=== PATIENT | female | born 1970 | race Two or more races ===

== ENCOUNTER 2019-12-09 10:25 | Outpatient (REF) | payer MEDICAID, SELFPAY ==
--- NOTE | 2019-12-09 10:34 | MR_ITS ---
EXAMINATION: MR CERVICAL SPINE WITHOUT CONTRAST CLINICAL INFORMATION: Cervical radiculopathy. Left arm pain and shoulder blade/neck pain. COMPARISON: Cervical spine radiographs from 03/03/2019. TECHNIQUE: MRI of the cervical spine was obtained using routine sequences without contrast. FINDINGS: Normal anatomic alignment. Normal, homogeneous marrow signal throughout. No suspicious marrow edema. The vertebral body heights are maintained. Mild degenerative disc disease at C4-C5 and C5-C6 with partial disc desiccation. The spinal cord is normal in appearance. Limited evaluation of the soft tissues of the neck without demonstrated abnormalities. The flow voids of the major cervical vessels are maintained. Normal appearance of the cervicomedullary junction and visualized posterior fossa. SPINAL LEVELS: C2-C3: Normal annular contour. There is no uncovertebral joint arthropathy. There is mild bilateral facet joint arthropathy. There is no neural foraminal stenosis. There is no spinal canal stenosis. C3-C4: Minimal disc-osteophyte complex. There is mild right and no uncovertebral joint arthropathy. There is no facet joint arthropathy. There is mild right and no left neural foraminal stenosis. There is no spinal canal stenosis. C4-C5: Mild disc-osteophyte complex. There is mild right and no left uncovertebral joint arthropathy. There is mild bilateral facet joint arthropathy. There is mild right and no left neural foraminal stenosis. There is no spinal canal stenosis. C5-C6: Mild disc-osteophyte complex with superimposed shallow central disc herniation. There is mild bilateral uncovertebral joint arthropathy. There is mild bilateral facet joint arthropathy. There is mild bilateral neural foraminal stenosis. There is no spinal canal stenosis. C6-C7: Mild disc-osteophyte complex. There is no uncovertebral joint arthropathy. There is mild to facet joint arthropathy. There is no neural foraminal stenosis. Small left-sided perineural cyst. There is no spinal canal stenosis. C7-T1: Normal annular contour. There is no uncovertebral joint arthropathy. There is no facet joint arthropathy. There is no neural foraminal stenosis. Small left-sided perineural cyst. There is no spinal canal stenosis. IMPRESSION: Mild multilevel degenerative spondyloarthropathy of the cervical spine as described in detail above. There are mild right worse than left neural foraminal stenoses from C3-C6. No spinal canal stenosis.
== END 2019-12-09 10:26 | disposition home or self-care (01) ==
LOC: HO.MRI 10:25
PROVIDERS: PCP Emergency Medicine; Visit Provider Emergency Medicine
DX: M54.12 Radiculopathy, cervical region (principal)
CPT/HCPCS: 72141

== ENCOUNTER → 2019-12-25 14:33 | Outpatient (BNVA) | payer MEDICAID, SELFPAY | PROVIDERS: PCP Emergency Medicine; Visit Provider Anesthesiology | DX: M54.2 Cervicalgia (principal); M47.22 Other spondylosis with radiculopathy, cervical region | CPT/HCPCS: 99204 ==

== ENCOUNTER → 2020-01-07 12:01 | Outpatient (BNVA) | payer MEDICAID, SELFPAY | PROVIDERS: PCP Emergency Medicine; Referring Provider Emergency Medicine; Visit Provider Orthopaedic Surgery | DX: Z76.89 Persons encountering health services in other specified circumstances (principal) ==

== ENCOUNTER 2020-02-23 14:02 | Outpatient (REF) | payer MEDICAID, SELFPAY ==
[2020-02-23 15:13] LABS: HBS Num1 > 1000.00 mIU/mL (0-7.99); ~Hepatitis B Surface Antibody REACTIVE (Nonreactive)
[2020-02-24 09:02] LABS: Rubella IgG Antibody 8.14 Index
[2020-02-26 16:02] LABS: TS Negative Control Passed; TS Panel A 0; TS Panel B 1; TS Positive Control Passed; TSpotTB Negative (SeeBelow)
== END 2020-02-23 14:03 | disposition home or self-care (01) ==
LOC: HO.LNP 14:02
PROVIDERS: Visit Provider Internal Medicine
DX: Z02.1 Encounter for pre-employment examination (principal)
CPT/HCPCS: 86481; 86706; 86735; 86762; 86765; 86787

== ENCOUNTER 2020-06-03 11:36 | Outpatient (REF) | payer MEDICAID, SELFPAY ==
--- NOTE | ~2020-06-03 | XR_ITS ---
EXAMINATION: XR KNEE, RIGHT CLINICAL INFORMATION: Pain in right knee COMPARISON: None TECHNIQUE: Four views of the right knee. This includes AP weightbearing. FINDINGS: There is no fracture or subluxation. Compartmental joint spaces are maintained. Small joint effusion. The soft tissues are unremarkable. XR/XR knee RT 3V IMPRESSION: Small joint effusion. No osseous abnormality.
== END 2020-06-03 11:37 | disposition home or self-care (01) ==
LOC: HO.XRAY 11:36
PROVIDERS: PCP Family Medicine; Visit Provider Family Medicine
DX: M25.561 Pain in right knee (principal)
CPT/HCPCS: 73562

== ENCOUNTER → 2020-06-09 10:20 | Outpatient (BNVA) | payer MEDICAID, SELFPAY | PROVIDERS: PCP Family Medicine; Visit Provider Orthopaedic Surgery | DX: M22.2X1 Patellofemoral disorders, right knee (principal) | CPT/HCPCS: 20610; 99202; J1040 ==

== ENCOUNTER → 2020-09-22 08:48 | Outpatient (BNVA) | payer MEDICAID, SELFPAY | PROVIDERS: PCP Family Medicine; Visit Provider Orthopaedic Surgery | DX: M17.11 Unilateral primary osteoarthritis, right knee (principal); S83.241D Other tear of medial meniscus, current injury, right knee, subsequent encounter; X58.XXXD Exposure to other specified factors, subsequent encounter; M47.22 Other spondylosis with radiculopathy, cervical region | CPT/HCPCS: 99212 ==

== ENCOUNTER → 2020-11-02 08:29 | Outpatient (BNVA) | payer MEDICAID, SELFPAY | PROVIDERS: PCP Family Medicine; Visit Provider Physician Assistant ==

== ENCOUNTER → 2020-11-05 08:04 | Outpatient (BNVA) | payer MEDICAID, SELFPAY | PROVIDERS: PCP Family Medicine; Visit Provider Physician Assistant | DX: S83.241D Other tear of medial meniscus, current injury, right knee, subsequent encounter (principal) | CPT/HCPCS: 99212 ==

== ENCOUNTER 2020-11-10 06:06 | Day surgery (SDC) | payer MEDICAID, SELFPAY ==
[2020-11-04 10:13] VITALS: BMI 36.3
--- NOTE | 2020-11-09 08:42 | HO.ANESPROP2 ---
Documented by User: Asia Teixeira NP 11/09/20 08:43 HPI - Anesthesia Eval Consult details Narrative: 50yo F for Knee Arthroscopy PMFSH Active Problems Active Problems: All Active Problems (Updated 11/04/20 @ 10:17 by Janine Boyd RN) Patellofemoral pain syndrome of right knee (Acute) Tear of medial meniscus of right knee (Acute) Spondylosis of cervical spine with radiculopathy (Acute) Cervicalgia (Acute) Past Medical History Medical History Cervical dysplasia Cervicalgia COVID-19 vaccine series completed GERD (gastroesophageal reflux disease) Hx of bipolar disorder Spondylosis of cervical spine with radiculopathy Family History Family History Father No problems noted. Mother No problems noted. Surgical History Surgical History No history of previous surgery Social History Social History Patient Tobacco Use Status: Former Tobacco user Quit Date: 2016 Tobacco use type: Cigarette Use of substances other than those prescribed or required for medical reasons: No Have you been hit, kicked, punched, or otherwise hurt by someone within the past year? 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 Allergies Allergy/AdvReac Type Severity Reaction Status Date / Time prednisone [PREDNISONE] AdvReac Intermediate TACHYCARDIA Verified 09/22/20 08:52 Home Medications Medication Instructions Recorded Confirmed Last Taken Type hydroxyzine HCl 50 mg tablet 50 mg PO QID PRN 12/25/19 11/04/20 Unknown History ibuprofen 800 mg tablet 800 mg PO Q8H PRN 12/25/19 11/04/20 Unknown History omeprazole magnesium 20 mg 20 mg PO DAILY 12/25/19 11/04/20 Unknown History tablet,delayed release (Prilosec OTC) acetaminophen 500 mg tablet 1 - 2 tab PO Q8H PRN 11/04/20 11/04/20 Unknown History Exam Exam Date and Time: November 09, 2020 08 Height,Weight and Vital Signs: Height 5 ft 3 in Weight 92.986 kg Assessment and Plan Assessment Anesthesia Assessment: Chart Reviewed Documented by User: Kristen Tierney MD 11/10/20 07:32 [facility] Active Problems Active Problems: All Active Problems (Updated 11/04/20 @ 10:17 by Janine Boyd RN) Patellofemoral pain syndrome of right knee (Acute) Tear of medial meniscus of right knee (Acute) Spondylosis of cervical spine with radiculopathy (Acute) Cervicalgia (Acute) Increased BMI. Denies MALICK Anxiety Past Medical History Medical History Cervical dysplasia Cervicalgia COVID-19 vaccine series completed GERD (gastroesophageal reflux disease) Hx of bipolar disorder Spondylosis of cervical spine with radiculopathy Family History Family History Father No problems noted. Mother No problems noted. Family history of problems with anesthesia: No Surgical History Surgical History No history of previous surgery History of Problems with Anesthesia: No Social History Social History Patient Tobacco Use Status: Former Tobacco user Quit Date: 2016 Tobacco use type: Cigarette Use of substances other than those prescribed or required for medical reasons: No Have you been hit, kicked, punched, or otherwise hurt by someone within the past year? 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 Allergies Allergy/AdvReac Type Severity Reaction Status Date / Time prednisone [PREDNISONE] AdvReac Intermediate TACHYCARDIA Verified 09/22/20 08:52 Home Medications Medication Instructions Recorded Confirmed Last Taken Type hydroxyzine HCl 50 mg tablet 50 mg PO QID PRN 12/25/19 11/04/20 Unknown History ibuprofen 800 mg tablet 800 mg PO Q8H PRN 12/25/19 11/04/20 Unknown History omeprazole magnesium 20 mg 20 mg PO DAILY 12/25/19 11/04/20 Unknown History tablet,delayed release (Prilosec OTC) acetaminophen 500 mg tablet 1 - 2 tab PO Q8H PRN 11/04/20 11/04/20 Unknown History Exam Height,Weight and Vital Signs: Height 5 ft 3 in Weight 92.986 kg Vital Signs Temp Pulse Resp BP Pulse Ox 11/10/20 06:23 97.3 F 62 16 107/37 L 98 Pertinent Lab Results Pertinent Lab Results: Lab Results 11/10/20 Range/Units 06:27 Urine Test NEGATIVE (NEGATIVE) Airway Mallampati Class: II TM Dist: >3cm Neck ROM: Full Loose/Missing/Broken Teeth: No Heart: RRR Lungs: CTAB Assessment and Plan Assessment Anesthesia Assessment: Anesthesia Plan Discussed Final Anesthetic Review Family History of Problems with Anesthesia: No History of Problems with Anesthesia: No NPO: Yes ASA Class: II Final Preanesthetic Review: No Changes in Pt Med Stat, Meds/Allgs Chart Reviewed, Consent Obtained/Reviewed and Anes Risks/Benef Reviewed Patient Risk: Intermediate Procedure Risk: Low Assessment/Block/Sedation in SS: Assess/Block/Sedation-SS Anesthetic Plan Anesthetic Plan: GA Disposition: Standard PACU
[2020-11-10] VITALS (12 sets, daily range): BP systolic 102–132; BP diastolic 37–77; PULSE 50–77; RESP 16–19; TEMP 36.1–36.3; O2SAT 94–100
[2020-11-10 06:38] LABS: UPreg QC Valid YES; Urine Pregnancy NEGATIVE (NEGATIVE)
[2020-11-10] MEDS: Lactated Ringers 1,000 ML 100 ML IVCONT (07:18)
--- NOTE | 2020-11-10 07:47 | MHC.SHP ---
Pre-Procedural Eval Section A Date of Service: 11/10/20 The patient is an INPATIENT: No Changes since office visit: Yes Patient answered all questions; No Cold of Flu in the past 2 weeks, No New Medical Problems and No Changes in Medication The History & Physical has been completed within 30 days and I have reviewed it.: Yes Section B Chief Complaint: tear of medial menisucus Allergies: Allergies Allergy/AdvReac Type Severity Reaction Status Date / Time prednisone [PREDNISONE] AdvReac Intermediate TACHYCARDIA Verified 09/22/20 08:52 Plan I have reviewed the history and physical and performed a pertinent physical examination on my patient. No changes have occurred unless specified.
--- NOTE | 2020-11-10 08:14 | P.BOP_ITS ---
Brief Operative Note Date of Service: 11/10/20 Pre-op diagnosis: right knee medial meniscus tear Post-op diagnosis: other (1) right knee mmt 2) right knee plica) Procedure: partial medial meniscectomy and plica resection Surgeon: Smith Spencer MD Anesthesia: GETA and local Was an Vascular Manager used for this Procedure?: No Estimated blood loss (mL): 0 IV fluids (mL): 600 Pathology: none sent Condition: stable Disposition: PACU
--- NOTE | 2020-11-10 08:16 | W.PM.OPN ---
Operative Note Operative Note Date of Service: 11/10/20 Narrative: Pre-op diagnosis: right knee medial meniscus tear Post-op diagnosis: other (1) right knee mmt 2) right knee plica) Procedure: partial medial meniscectomy and plica resection Surgeon: Smith Spencer MD Anesthesia: GETA and local Was an Field [employer]illery Fire Control Man used for this Procedure?: No Estimated blood loss (mL): 0 IV fluids (mL): 600 Pathology: none sent Condition: stable Disposition: PACU Procedure in detail: Patient was brought to the operating room placed supine on the arthroscopic table and prepped and draped in standard sterile fashion. A time-out was called to identify proper site proper procedure proper surgeon and IV antibiotics per weight were administered. I began by exsanguinating the limb and insufflating tourniquet to 300 mm Hg. I then made a standard anterolateral stab incision. The knee was insufflated with water and 30 degree arthroscope was placed. The suprapatellar pouch was clean and the gutters were clean. There were no PF cartilage changes. I descended into the medial compartment with some difficulty as there was a medial abrading plica present. I used a shaver to remove this and then was able to descend into the medial compartment where I made my medial portal under direct visualization. There was a radial flap tear of the body and posterior horn of the medial meniscus. Root was intact and there was grade 1 changes of the medial plateau only. I used a combination of biter shaver and cautery to remove unstable portions of the meniscus. Approximately 30% meniscal volume was removed. Once I was satsified with this the ACL was examined and found to be intact and the lateral compartment also was pristine. I then removed all instrumentation and closed the portals with skin glue. 25 mL of 2% Marcaine with epinephrine was injected into the joint and the surrounding soft tissues. Patient was then placed in sterile dressing extubated and brought recovery room stable condition. There were no known complications.
[2020-11-10] MEDS: fentaNYL citrate/PF 100 MCG/2 ML VIAL 25 MCG IVPUSH ×3 (08:24→08:44)
[2020-11-10] MEDS: Acetaminophen 325 MG TABLET 650 MG PO (08:36)
[2020-11-10] MEDS: oxyCODONE HCl Immed Release 5 MG TABLET PO (08:36)
[2020-11-10] MEDS: ondansetron HCL 4 MG/2 ML VIAL IVPUSH (09:04)
== END 2020-11-10 10:21 | disposition home or self-care (01) ==
PROVIDERS: Nurse Practitioner; PCP Family Medicine; Visit Provider Orthopaedic Surgery
PROC: (CPT 29870; principal; 2020-11-10 07:30)
DX: S83.241A Other tear of medial meniscus, current injury, right knee, initial encounter (principal); M67.51 Plica syndrome, right knee; X58.XXXA Exposure to other specified factors, initial encounter; Y93.9 Activity, unspecified; Y92.9 Unspecified place or not applicable; Y99.9 Unspecified external cause status
CPT/HCPCS: 29881; 81025; J0171; J0690; J1100; J1885; J2250; J2405; J3010

== ENCOUNTER → 2020-11-23 09:25 | Outpatient (BNVA) | payer MEDICAID, SELFPAY | PROVIDERS: PCP Family Medicine; Visit Provider Physician Assistant | DX: M22.2X1 Patellofemoral disorders, right knee (principal); S83.241D Other tear of medial meniscus, current injury, right knee, subsequent encounter | CPT/HCPCS: 99212 ==

== ENCOUNTER → 2020-12-21 13:00 | Outpatient (BNVA) | payer MEDICAID, SELFPAY | PROVIDERS: PCP Family Medicine; Visit Provider Physician Assistant | DX: M22.2X1 Patellofemoral disorders, right knee (principal); S83.241D Other tear of medial meniscus, current injury, right knee, subsequent encounter | CPT/HCPCS: 99212 ==

== ENCOUNTER 2020-12-28 10:00 | Outpatient (RCR) | payer MEDICAID, SELFPAY ==
--- NOTE | 2020-12-01 10:51 | MHC.PT.EP ---
[facility] [place] Office [place] Office [place] Office [address] Larry Adams [address] [phone] F: [phone] F: [phone] F: [phone] F: [phone] Physical Therapy Plan of Care Date of Evaluation: Date of Surgery: 11/10/2020 Diagnosis: tear of R knee meniscus Assessment: Patient is a 50 year old female presenting to PT s/p R partial medial menisectomy and excision of plica on 11/10/2020. She presents today with impairments in knee ROM, knee strength, hip strength, pain, balance, joint mobility, and swelling. 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, with baseline physical activities including work, ADLs, ambulation, squatting, stair negotiation. Pt expresses retirement goal of getting swelling down and knee more flexible, and is motivated to work towards this in PT. Clinical presentation today is most consistent with signs and sx associated with s/p R partial medial menisectomy and excision of plica on 11/11/2020 and pt will benefit from skilled PT to address the following problems and impairments noted upon evaluation: knee ROM, knee strength, hip strength, pain, balance, and swelling. These problems limit the patient with the following functional activities: work, ADLs, ambulation, squatting, stair negotiation. The prescribed treatment plan of care is medically necessary. Co-morbidities of psoriasis were identified and taken into considerations of plan of care. Pt was educated on HEP, role of PT, prognosis, POC. Frequency and Duration: The patient will be seen 2x week x 5 weeks Short Term Goals: Pt will demonstrate improved knee extension ROM to 0 in 3 weeks for improved heel strike with gait. Pt will demonstrate improved knee and hip strength by 1/3 MMT in 3 weeks for improved tolerance to ambulation and stairs. Pt will demonstrate improved knee flexion ROM to equal B in 3 weeks for improved tolerance to stair negotiation. Pt will demonstrate improved patella joint mobility to 3/6 in 3 weeks for improved ROM. Pt will demonstrate ability to SLS x 30 sec in 3 weeks for improved proprioception on surgical leg. Stonecutter Hand Goals: Pt will demonstrate ability to ambulate with good mechanics and no AD in 5 weeks to improve tolerance to community ambulation. Pt will demonstrate ability to complete all ADLs at PLOF in 5 weeks to allow return to PLOF. Pt will demonstrate ability to negotiate stairs step over step in 5 weeks with min to no pain to improve access to her home. Treatment Plan: Modalities to reduce pain, spasms and effusion. Manual therapy to restore motion and function. Therapeutic exercise to improve strength and flexibility. Neuromuscular re-education for posture and balance. Therapeutic activities to return to functional activities of daily living. Electronically signed by: Nehal Pratt, PT, DPT, ATC Please sign and return to therapist. Thank you for your referral.
--- NOTE | 2021-01-13 10:20 | MHC.PT.DC ---
[facility] [place] [facility] [place] [facility] [place] Office [address] Larry Adams [address] [phone] F: [phone] F: [phone] F: [phone] F: [phone] Physical Therapy Discharge Report Diagnosis: tear of R knee meniscus Date of Surgery: 11/10/2020 Date of Evaluation: 12/01/20 Date of Discharge: 01/13/21 Treatments to Date: 8 Cancellations to Date: 1 No Shows to Date: 4 Discharge Status: Visit Non-compliance Discharge Summary: Pt has failed to comply with [facility] attendance policy. She has no showed 4 out of her last 5 appointments and cancelled the other. Multiple attempts to reach out to pt regarding PT status without success. At this time pt status currently unknown and therefore will be d/c today. Electronically signed by: Nehal Pratt, PT, DPT, ATC Please sign and return to therapist. Thank you for your referral.
== END 2021-01-13 10:20 | disposition home or self-care (01) ==
LOC: HO.PT 10:00
PROVIDERS: PCP Family Medicine; Visit Provider Physician Assistant
DX: M22.2X1 Patellofemoral disorders, right knee (principal); S83.241A Other tear of medial meniscus, current injury, right knee, initial encounter
CPT/HCPCS: 97110; 97112; 97140; 97161

== ENCOUNTER → 2021-01-24 08:52 | Outpatient (BNVA) | payer MEDICAID, SELFPAY | PROVIDERS: Visit Provider Orthopaedic Surgery | DX: S83.241D Other tear of medial meniscus, current injury, right knee, subsequent encounter (principal) | CPT/HCPCS: 99212 ==

== ENCOUNTER 2021-02-20 02:10 | Outpatient (REF) | payer MEDICAID, SELFPAY ==
[2021-02-20 02:54] LABS: COVID-19 Test Negative (Negative)
== END 2021-02-20 02:11 | disposition home or self-care (01) ==
LOC: HO.LAB 02:10
PROVIDERS: Visit Provider Internal Medicine
DX: Z20.822 Contact with and (suspected) exposure to COVID-19 (principal)
CPT/HCPCS: 36415; 87635

== ENCOUNTER 2021-03-07 21:24 | Outpatient (REF) | payer MEDICAID, SELFPAY ==
[2021-03-07 22:02] LABS: COVID-19 Test Negative (Negative)
== END 2021-03-07 21:25 | disposition home or self-care (01) ==
LOC: HO.LAB 21:24
PROVIDERS: Referring Provider Internal Medicine; Visit Provider Internal Medicine
DX: Z20.822 Contact with and (suspected) exposure to COVID-19 (principal)
CPT/HCPCS: 36415; 87635

== ENCOUNTER 2021-05-06 01:40 | Emergency (ER) | payer MEDICAID, SELFPAY ==
[2021-05-06 01:42] VITALS: BP 135/66; PULSE 56; RESP 16; TEMP 37; O2SAT 98; BMI 34.9
[2021-05-06 01:56] LABS: MANUAL DIFF FLAG NO
[2021-05-06 01:57] LABS: Basophils Percent Auto 0.3 % (0-2); Eosinophils Absolute Auto 0.2 X10*3/uL (0.0-0.4); Eosinophils Percent Auto 1.8 % (0-4); Hematocrit 37.9 % (37.0-47.0); Hemoglobin 11.8 g/dl (12.0-16.0); Imm Gran Abs Auto 0.03 X10*3/uL (0.00-0.03); Imm Gran Pct Auto 0.3 % (0.0-0.4); Lymphocytes Percent Auto 18.1 % (20-40); Mean Corpuscular HGB Conc 31.1 g/dl (31.0-35.0); Mean Corpuscular Hemoglobin 24.7 pg (27.0-33.0); Mean Corpuscular Volume 79.3 fL (80.0-98.0); Mean Platelet Volume 9.9 fL (9.4-12.3); Monocytes Absolute Auto 0.7 X10*3/uL (0.1-1.2); Neutrophils Absolute Auto 7.9 x10*3/uL (2.0-8.3); Neutrophils Percent Auto 73.5 % (45-73); Platelet Count 228 X10*3/uL (160-400); Red Blood Count 4.78 X10*6/uL (4.20-5.50); Red Cell Distribution Width 14.1 % (11.0-16.0); White Blood Count 10.8 X10*3/uL (4.8-10.8)
[2021-05-06] MEDS: ondansetron HCL 4 MG/2 ML VIAL IVPUSH (02:00)
[2021-05-06 02:13] LABS: COVID-19 Test Negative (Negative)
[2021-05-06 02:14] LABS: Alanine Aminotransferase 33 U/L (0-31); Albumin Level 3.9 g/dL (3.5-5.0); Alkaline Phosphatase 98 U/L (39-117); Anion Gap 11 (12-20); Aspartate Amino Transferase 26 U/L (5-31); Bilirubin Total 0.5 mg/dL (0.0-1.0); Blood Urea Nitrogen 16 mg/dL (9-16); Calcium 9.1 mg/dL (8.4-10.2); Carbon Dioxide 25 mmol/L (22-29); Chloride 108 mmol/L (96-108); Creatinine Clr Calc Pharmacy 100.8; Estimated Glomerular Filt Rate > 60; Glucose Random 102 mg/dL (60-115); Potassium 3.7 mmol/L (3.3-5.1); Sodium 140 mmol/L (135-145); Total Protein 6.9 g/dL (6.5-8.0)
--- NOTE | 2021-05-06 03:12 | PC.NURSE ---
at bedside for primary eval.
--- NOTE | 2021-05-06 03:43 | ED_ITS ---
HPI - General Adult General Chief complaint: Headache Stated complaint: general medical Time Seen by Provider: 05/06/21 03:43 Source: patient Mode of arrival: ambulatory History of Present Illness HPI narrative: 51-year-old female presents with frontal headache that began at midnight, she received Tylenol but states that she did not get any relief. Patient states that she had associated photophobia as well as blurry vision and nausea and denies any history of migraines. However, patient states that she wears corrective lenses which she left at home this evening. She otherwise denies any fever, chills, speech or auditory changes and denies any extremity numbness/tingling/weakness. Patient denies any past medical history or pres cription medications. Patient reports that the blurry vision has somewhat improved. Related Data Home Medications Medication Instructions Recorded Confirmed hydroxyzine HCl 50 mg tablet 50 mg PO QID PRN 12/25/19 11/04/20 ibuprofen 800 mg tablet 800 mg PO Q8H PRN 12/25/19 11/04/20 omeprazole magnesium 20 mg 20 mg PO DAILY 12/25/19 11/04/20 tablet,delayed release (Prilosec OTC) acetaminophen 500 mg tablet 1 - 2 tab PO Q8H PRN 11/04/20 11/04/20 Previous Rx's Medication Instructions Recorded hydrocodone 5 mg-acetaminophen 325 1 tab PO Q8H PRN #21 tab 11/10/20 mg tablet Allergies Allergy/AdvReac Type Severity Reaction Status Date / Time prednisone [PREDNISONE] AdvReac Intermediate TACHYCARDIA Verified 05/06/21 01:44 Review of Systems Review of Systems: Pertinent positives and negatives as stated in HPI 10 point review of systems is otherwise negative. [facility] Past Medical History Source: nursing notes reviewed Medical History Cervical dysplasia Cervicalgia COVID-19 vaccine series completed GERD (gastroesophageal reflux disease) Hx of bipolar disorder Spondylosis of cervical spine with radiculopathy Surgical History No history of previous surgery Family History Family History Father No problems noted. Mother No problems noted. 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 GENERAL: Well developed, well nourished, in no acute distress. HEAD: Normocephalic/atraumatic EYES: PERRLA, EOMI intact without pain, no nystagmus, no conjunctival injection EARS: Ext canals without abnormality, TMs non-bulging and non-erythematous NOSE: Nares patent bilateral OROPHARYNX: no oral lesions noted, posterior pharynx clear LUNGS: Normal breath sounds. SpO2<98> CARDIOVASCULAR: Regular rate and rhythm without noted murmurs, no JVD or lower extremity edema. ABDOMEN: Soft, non-tender, non-distended with bowel sounds. MUSCULOSKELETAL: No tenderness, deformities, or effusions noted on gross inspection. EXTREMITIES: No cyanosis, clubbing or edema. SKIN: Inspection of the skin reveals no rashes, ulcerations, jaundice, pallor, or petechiae. NEUROLOGIC: Alert and oriented x 4. Strength and sensation to light touch were grossly intact x 4, no pronator drift, no facial asymmetry, cranial nerves 2-12 grossly intact, heel to yeung is intact, pass pointing is intact. Course Course Course Narrative: This is a 51-year-old female who developed headache with some blurry vision but is otherwise nonfocal, no evidence to suggest that this is a medication related incident, there is no trauma/falls. Patient reports improvement in her sy mptoms, there is no evidence to suggest acute angle glaucoma, history is not consistent with retinal detachment, no gaze palsies were appreciated. Blurry vision may be attributable to absent corrective lenses. Review of all investigations without acute findings and on ambulation and re- evaluation patient did very well without noted ataxia and she received additional Tylenol and reports feeling much better. She was encouraged to follow-up with her primary care provider for re-evaluation. Medical Decision Making Lab Data Result diagrams: 05/06/21 01:52 05/06/21 01:52 Labs: Lab Results 05/06/21 05/06/21 05/06/21 Range/Units 01:52 01:52 01:52 WBC 10.8 (4.8-10.8) X10*3/uL RBC 4.78 (4.20-5.50) X10*6/uL Hgb 11.8 L (12.0-16.0) g/dl Hct 37.9 (37.0-47.0) % MCV 79.3 L (80.0-98.0) fL MCH 24.7 L (27.0-33.0) pg MCHC 31.1 (31.0-35.0) g/dl RDW 14.1 (11.0-16.0) % Plt Count 228 (160-400) X10*3/uL MPV 9.9 (9.4-12.3) fL Immature Gran % (Auto) 0.3 (0.0-0.4) % Neut % (Auto) 73.5 H (45-73) % Lymph % (Auto) 18.1 L (20-40) % [place] % (Auto) 6.0 (2-11) % Eos % (Auto) 1.8 (0-4) % Baso % (Auto) 0.3 (0-2) % Lymph # (Auto) 2.0 (1.2-4.9) X10*3/uL [place] # (Auto) 0.7 (0.1-1.2) X10*3/uL Eos # (Auto) 0.2 (0.0-0.4) X10*3/uL Baso # (Auto) 0.0 (0.0-0.2) X10*3/uL Abs Immat Gran (auto) 0.03 (0.00-0.03) X10*3/uL Absolute Neuts (auto) 7.9 (2.0-8.3) x10*3/uL Absolute Nucleated RBC 0.000 (0.0-0.012) X10*3/uL Nucleated RBC % (auto) 0.0 (0.0-0.2) /100WBC Sodium 140 (135-145) mmol/L Potassium 3.7 (3.3-5.1) mmol/L Chloride 108 (96-108) mmol/L Carbon Dioxide 25 (22-29) mmol/L Anion Gap 11 L (12-20) BUN 16 (9-16) mg/dL Creatinine 0.78 (0.5-1.4) mg/dL Estim Creat Clear Calc 100.8 Estimated GFR > 60 Random Glucose 102 (60-115) mg/dL Calcium 9.1 (8.4-10.2) mg/dL Total Bilirubin 0.5 (0.0-1.0) mg/dL AST 26 (5-31) U/L ALT 33 H (0-31) U/L Alkaline Phosphatase 98 (39-117) U/L Total Protein 6.9 (6.5-8.0) g/dL Albumin 3.9 (3.5-5.0) g/dL COVID-19 (COLTEN) Negative (Negative) COVID-19 Clin Com See Note Discharge Plan Discharge Clinical Impression: Headache Patient Disposition: Home, Self-Care Instructions: General Headache (ED) Additional Instructions: 1. Recommend keeping your corrective lenses with you at all time. Consider an annual eye exam if you have not received 1 within the past year. 2. Follow-up with your primary care provider for re-evaluation and further outpatient management. Return to the ER for worsening symptoms. Prescriptions: No Action acetaminophen 500 mg tablet 1 - 2 tab PO Q8H PRN (Reason: fever) 0RF hydrocodone-acetaminophen 5-325 mg tablet 1 tab PO Q8H PRN (Reason: pain (scale score 4-6)) Qty: 21 0RF ibuprofen 800 mg tablet 800 mg PO Q8H PRN (Reason: Pain) 0RF hydroxyzine HCl 50 mg tablet 50 mg PO QID PRN (Reason: Anxiety) 0RF omeprazole magnesium [Prilosec OTC] 20 mg tablet,delayed release (DR/EC) 20 mg PO DAILY 0RF Referrals: [facility] [Primary Care Provider] - 2 days
--- NOTE | 2021-05-06 04:35 | PC.NURSE ---
Pt ambulating throughout ED with ease however pt reporting difficulty with coordination. aware.
[2021-05-06] MEDS: Acetaminophen 325 MG TABLET 650 MG PO (05:15)
--- NOTE | 2021-05-06 05:20 | PC.NURSE ---
Pt medicated for BUSTAMANTE with Tylenol, reports pain to be 4/10. Pt ambulating with this RN, strong/steady gait noted, pt ambulating without assistance. Pt assisted back into bed, requesting some more time to rest. MD aware of plan for DC soon.
--- NOTE | 2021-05-06 06:16 | PC.NURSE ---
MD at bedside discussing results and plan for discharge.
== END 2021-05-06 06:43 | disposition home or self-care (01) ==
PROVIDERS: Emergency Provider Student in an Organized Health Care Education/Training Program
DX: R51.9 Headache, unspecified (principal); H53.8 Other visual disturbances; Z87.891 Personal history of nicotine dependence; Z20.822 Contact with and (suspected) exposure to COVID-19
CPT/HCPCS: 80053; 85025; 87635; 96374; 99283; 99284; J2405

== ENCOUNTER 2021-08-05 23:59 | Outpatient (REF) | payer MEDICAID, SELFPAY ==
[2021-08-06 00:31] LABS: COVID-19 Test Negative (Negative)
== END 2021-08-06 | disposition home or self-care (01) ==
LOC: HO.LAB 23:59
PROVIDERS: Visit Provider Internal Medicine
DX: Z20.822 Contact with and (suspected) exposure to COVID-19 (principal)
CPT/HCPCS: 87635

== ENCOUNTER → 2021-12-22 09:08 | Outpatient (BNVA) | payer MEDICAID, SELFPAY | PROVIDERS: Visit Provider Orthopaedic Surgery | DX: R20.0 Anesthesia of skin (principal); R20.2 Paresthesia of skin; M76.811 Anterior tibial syndrome, right leg | CPT/HCPCS: 99212 ==

== ENCOUNTER 2022-04-01 16:00 | Outpatient (REF) | payer OTHER, SELFPAY ==
[2022-04-01 16:38] LABS: COVID-19 Test Negative (Negative); IDNOW Serial# 6674DD1D
== END 2022-04-01 16:01 | disposition home or self-care (01) ==
LOC: HO.LAB 16:00
PROVIDERS: Visit Provider Internal Medicine
DX: Z20.822 Contact with and (suspected) exposure to COVID-19 (principal)
CPT/HCPCS: 87635

== ENCOUNTER 2022-08-14 08:00 | Outpatient (REF) | payer MEDICAID, SELFPAY ==
--- NOTE | ~2022-08-14 | MM_ITS ---
EXAMINATION: MM SCREENING DIGITAL BREAST TOMOSYNTHESIS, BILATERAL CLINICAL INFORMATION: Screening. Asymptomatic. The lifetime risk of breast cancer based on the Tyrer-Cuzick Model is 10%. COMPARISON: Mammography: 06/11/2017, 05/24/2017; outside exams 06/21/2011 ([facility]). TECHNIQUE: Digital breast tomosynthesis is performed in both the craniocaudal and mediolateral oblique views along with computer-aided detection (CAD). Synthesized 2D images are generated from the tomosynthesis. FINDINGS: There are scattered areas of fibroglandular density (ACR BI-RADS breast composition Category b). There are no significant masses, abnormal calcifications, or other abnormalities. Parenchymal pattern is similar to prior studies. There is no developing density or architectural abnormality. The axilla and skin contours are unremarkable. No significant changes. MM/MM tomosynthesis screening BI IMPRESSION: No mammographic evidence of malignancy. ASSESSMENT: BI-RADS 1: Negative RECOMMENDATION: Routine annual mammography screening. This patient's information was entered into a reminder system with a target due date for their next mammogram.
== END 2022-08-14 08:01 | disposition home or self-care (01) ==
LOC: HO.MAMMO 08:00
PROVIDERS: PCP Registered Nurse; Visit Provider Registered Nurse
DX: Z12.31 Encounter for screening mammogram for malignant neoplasm of breast (principal)
CPT/HCPCS: 77063; 77067

== ENCOUNTER 2022-08-31 08:03 | Outpatient (REF) | payer MEDICAID, SELFPAY ==
--- NOTE | ~2022-08-31 | MR_ITS ---
EXAMINATION: MR CERVICAL SPINE WITHOUT CONTRAST CLINICAL INFORMATION: Neck pain with radiculopathy, left arm and finger pain and numbness COMPARISON: MRI cervical spine 12/09/2019 TECHNIQUE: MRI of the cervical spine was obtained using routine sequences without contrast. FINDINGS: Mild leftward curvature of the cervical spine. No suspicious marrow signal or focal osseous lesion. No significant marrow edema The vertebral body heights are maintained. The intervertebral discs are of normal height and signal. The cervical spinal cord is normal in caliber and signal Limited evaluation of the soft tissues of the neck without demonstrated abnormalities. The flow voids of the major cervical vessels are maintained. Normal appearance of the cervicomedullary junction and visualized posterior fossa SPINAL LEVELS: (Findings appear stable compared to MRI from 2019) C2-C3: No significant spinal canal or neuroforaminal narrowing. Mild facet arthropathy. C3-C4: Minimal disc osteophyte complex and mild uncovertebral hypertrophy. Mild right neural foraminal narrowing. No significant spinal canal stenosis. C4-C5: Minimal disc osteophyte complex and mild uncovertebral hypertrophy. Mild right neural foraminal narrowing. No significant spinal canal stenosis. C5-C6: Small disc osteophyte complex and uncovertebral hypertrophy. Mild bilateral neural foraminal narrowing. No significant central spinal canal stenosis. C6-C7: Small disc osteophyte complex. No significant spinal canal or neural foraminal narrowing. Small left perineural cyst. C7-T1: No significant spinal canal or neuroforaminal narrowing. Small left perineural cyst. MR/MR cervical spine wo con IMPRESSION: Mild multilevel cervical spondylosis as described above appears stable compared to MRI from 2019 without significant spinal canal stenosis, high-grade neural foraminal narrowing, or cord signal abnormality.
== END 2022-08-31 08:04 | disposition home or self-care (01) ==
LOC: HO.MRI 08:03
PROVIDERS: PCP Registered Nurse; Visit Provider Emergency Medicine
DX: M54.2 Cervicalgia (principal)
CPT/HCPCS: 72141

== ENCOUNTER 2022-09-30 11:45 | Outpatient (REF) | payer OTHER, MEDICAID, SELFPAY | END 2022-09-30 11:46 | disposition home or self-care (01) | LOC: HO.LAB 11:45 | PROVIDERS: Visit Provider Internal Medicine | DX: Z13.89 Encounter for screening for other disorder (principal) ==

== ENCOUNTER 2022-09-30 12:00 | Outpatient (REF) | payer OTHER, MEDICAID, SELFPAY ==
[2022-09-30 12:46] LABS: COVID-19 Test Negative (Negative); IDNOW Serial# BCCEAD1C
== END 2022-09-30 12:01 | disposition home or self-care (01) ==
LOC: HO.LNP 12:00
PROVIDERS: Visit Provider Internal Medicine
DX: Z20.822 Contact with and (suspected) exposure to COVID-19 (principal)
CPT/HCPCS: 87635

== ENCOUNTER 2023-02-04 23:02 | Emergency (ER) | payer OTHER, SELFPAY ==
--- NOTE | ~2023-02-04 | XR_ITS ---
EXAMINATION: XR CHEST CLINICAL INFORMATION: Shortness of breath. COMPARISON: Chest radiograph 06/08/2017. TECHNIQUE: 2 views of the chest were obtained. FINDINGS: Normal appearance of the cardiomediastinal silhouette. No focal airspace opacities, pleural effusion or pneumothorax. No acute osseous findings. Visualized upper abdomen is within normal limits. XR/XR chest 2V IMPRESSION: No acute cardiopulmonary findings.
[2023-02-04 23:04] VITALS: BP 141/72; PULSE 61; RESP 16; TEMP 36.7; O2SAT 99; BMI 37.2
[2023-02-05 00:06] LABS: Influenza A PCR NEGATIVE (Negative); Influenza B PCR NEGATIVE (Negative); Resp Syncy Virus RNA Qual PCR NEGATIVE (Negative); SARS COV2 PCR INHOUSE NEGATIVE (Negative)
--- NOTE | 2023-02-05 00:06 | ED.GENADULT ---
HPI - General Adult General Chief complaint: Upper Respiratory Symptoms Stated complaint: swab Time Seen by Provider: 02/04/23 23:38 Source: patient, RN notes reviewed and old records reviewed Mode of arrival: ambulatory Limitations: no limitations History of Present Illness HPI narrative: 52-year-old female presents for evaluation of chest tightness and cough Patient was diagnosed with the flu and reports feeling better from that as of 2-3 days ago Earlier today she developed increased cough and chest tightness She states that when she had similar symptoms in the past she had ?COVID-19. 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 She is requesting a viral swab No fevers or chills Related Data Home Medications Medication Instructions Recorded Confirmed hydroxyzine HCl 50 mg tablet 50 mg PO QID PRN Anxiety 12/25/19 11/04/20 ibuprofen 800 mg tablet 800 mg PO Q8H PRN Pain 12/25/19 11/04/20 omeprazole magnesium 20 mg 20 mg PO DAILY 12/25/19 11/04/20 tablet,delayed release (Prilosec OTC) acetaminophen 500 mg tablet 1 - 2 tab PO Q8H PRN fever 11/04/20 11/04/20 Previous Rx's Medication Instructions Recorded hydrocodone 5 mg-acetaminophen 325 1 tab PO Q8H PRN pain (scale score 11/10/20 mg tablet 4-6) #21 tabs azithromycin 250 mg tablet See Rx Instructions PO .COMPLEX #6 02/05/23 tabs Allergies Allergy/AdvReac Type Severity Reaction Status Date / Time prednisone [PREDNISONE] AdvReac Intermediate TACHYCARDIA Verified 05/06/21 01:44 Review of Systems Constitutional: Constitutional: Denies chills and Denies fever(s) ENT: Denies sinus pain and Denies sore throat Cardiovascular: Cardiovascular: Reports chest pain and Denies dyspnea Respiratory: Respiratory: Reports cough, Reports pain on inspiration, Reports pain with cough and Denies dyspnea Gastrointestinal: Gastrointestinal: Denies abdominal pain, Denies nausea and Denies vomiting Musculoskeletal: Musculoskeletal: Denies back pain Integumentary/Breasts: Skin/Breast: Denies rash PMFSH Past Medical History Medical History Cervical dysplasia Cervicalgia COVID-19 vaccine series completed GERD (gastroesophageal reflux disease) Hx of bipolar disorder Spondylosis of cervical spine with radiculopathy Surgical History No history of previous surgery Family History Family History Father No problems noted. Mother No problems noted. 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 Physical Exam ED Vital Signs: Vital Signs - 24 hr 02/04/23 23:04 Temperature 98.1 F Pulse Rate 61 Respiratory Rate 16 Blood Pressure 141/72 H Pulse Oximetry 99 Oxygen Delivery Method Room Air BMI result Body Mass Index 37.2 Const General: healthy appearing, comfortable, no acute distress, alert and awake Nutritional Appearance: well nourished Orientation/consciousness: patient oriented x3 HENMT Head: Yes normocephalic and Yes atraumatic Eyes Eyelids: Yes eyelids normal Conjunctivae: conjunctivae normal Sclerae: sclerae normal Corneas: corneas normal Pupils: Equal, round and reactive pupils present EOM: EOMs intact bilaterally Neck Neck: Yes full ROM Resp Effort & Inspection: normal respiratory effort, able to speak in complete sentences, no audible wheezes and not labored Auscultation: clear to auscultation bilaterally Neuro General: patient oriented x3 Cranial nerves: Yes Equal, round and reactive pupils present and Yes Bilaterally intact EOM present Cognition (Neuro): normal cognition Extrem Other: Moving all extremities well without any obvious deformities Medical Decision Making Medical Decision Making MDM Narrative: 52-year-old female presents for evaluation of upper respiratory symptoms however she was just recently recovering from the flu. Her lungs are clear to auscultation, we will obtain viral swab. If negative will have a low threshold for chest x-ray to rule out post viral pneumonia. Vital signs remained stable Differential Diagnosis Differential Diagnoses: The differential diagnosis associated with the presentation includes Influenza Upper respiratory infection Bronchitis Viral syndrome Pneumonia RSV COVID-19 Lab Data Labs: Lab Results 02/04/23 Range/Units 23:20 Influenza Type A (PCR) NEGATIVE (Negative) Influenza Type B (PCR) NEGATIVE (Negative) RSV RNA Qual (PCR) NEGATIVE (Negative) SARS-CoV-2 RNA (RT-PCR) NEGATIVE (Negative) Independent Interpretation I performed an independent interpretation of an: Plain X-Ray (No infiltrates) Radiology Impression Discussion of test interpretation with radiology: I have reviewed the radiologist's reading. (No acute cardiopulmonary pathology) Discharge Plan Discharge Clinical Impression: Acute upper respiratory infection Patient Disposition: Home, Self-Care Instructions: Upper Respiratory Infection (ED) Additional Instructions: Your viral swabs were negative. Your chest x-ray was clear Take the azithromycin as directed Prescriptions: New azithromycin 250 mg tablet See Rx Instructions .ROUTE .COMPLEX Qty: 6 0RF Rx Instructions: For 250 mg dose pack: take 500 mg today (day 1), then 250 mg for 4 days (days 2-5) No Action acetaminophen 500 mg tablet 1 - 2 tab PO Q8H PRN (Reason: fever) hydrocodone-acetaminophen 5-325 mg tablet 1 tab PO Q8H PRN (Reason: pain (scale score 4-6)) Qty: 21 0RF ibuprofen 800 mg tablet 800 mg PO Q8H PRN (Reason: Pain) hydroxyzine HCl 50 mg tablet 50 mg PO QID PRN (Reason: Anxiety) omeprazole magnesium [Prilosec OTC] 20 mg tablet,delayed release (DR/EC) 20 mg PO DAILY
== END 2023-02-05 02:30 | disposition home or self-care (01) ==
PROVIDERS: Emergency Provider Internal Medicine
DX: J06.9 Acute upper respiratory infection, unspecified (principal); R05.9 Cough, unspecified; R07.89 Other chest pain; Z20.822 Contact with and (suspected) exposure to COVID-19; Z20.828 Contact with and (suspected) exposure to other viral communicable diseases
CPT/HCPCS: 0241U; 71046; 99282; 99283

== ENCOUNTER 2023-11-27 08:45 | Outpatient (REF) | payer MEDICAID, SELFPAY ==
[2023-11-27 11:20] LABS: MANUAL DIFF FLAG NO
[2023-11-27 11:31] LABS: Basophils Absolute Auto 0.1 X10*3/uL (0.0-0.2); Basophils Percent Auto 0.8 % (0-2); Eosinophils Absolute Auto 0.1 X10*3/uL (0.0-0.4); Eosinophils Percent Auto 1.7 % (0-4); Hematocrit 40.7 % (37.0-47.0); Hemoglobin 12.8 g/dl (12.0-16.0); Imm Gran Abs Auto 0.02 X10*3/uL (0.00-0.03); Imm Gran Pct Auto 0.3 % (0.0-0.4); Lymphocytes Absolute Auto 1.4 X10*3/uL (1.2-4.9); Lymphocytes Percent Auto 23.3 % (20-40); Mean Corpuscular HGB Conc 31.4 g/dl (31.0-35.0); Mean Corpuscular Hemoglobin 24.9 pg (27.0-33.0); Mean Corpuscular Volume 79.2 fL (80.0-98.0); Mean Platelet Volume 10.1 fL (9.4-12.3); Monocytes Absolute Auto 0.5 X10*3/uL (0.1-1.2); Monocytes Percent Auto 7.6 % (2-11); Neutrophils Percent Auto 66.3 % (45-73); Platelet Count 241 X10*3/uL (160-400); Red Blood Count 5.14 X10*6/uL (4.20-5.50); Red Cell Distribution Width 13.9 % (11.0-16.0)
[2023-11-27 11:48] LABS: Alanine Aminotransferase 47 U/L (0-31); Albumin Level 3.9 g/dL (3.5-5.0); Alkaline Phosphatase 88 U/L (39-117); Anion Gap 10 (12-20); Aspartate Amino Transferase 41 U/L (5-31); Bilirubin Total 0.5 mg/dL (0.0-1.0); Blood Urea Nitrogen 12 mg/dL (9-16); Calcium 9.1 mg/dL (8.4-10.2); Carbon Dioxide 26 mmol/L (22-29); Chloride 110 mmol/L (96-108); Cholesterol 184 mg/dL (<200); Estimated Glomerular Filt Rate > 60; Glucose Random 111 mg/dL (60-115); HDL Cholesterol 39 mg/dL (>40); LDL Cholesterol Calculated 113 mg/dL (<100); Potassium 3.7 mmol/L (3.3-5.1); Sodium 142 mmol/L (135-145); Total Protein 7.3 g/dL (6.5-8.0); Triglycerides 163 mg/dL (<150)
== END 2023-11-27 08:46 | disposition home or self-care (01) ==
LOC: HO.HHCL 08:45
PROVIDERS: Visit Provider Internal Medicine Geriatric Medicine
DX: Z13.1 Encounter for screening for diabetes mellitus (principal); Z13.220 Encounter for screening for lipoid disorders; R12 Heartburn
CPT/HCPCS: 36415; 80053; 80061; 85025

== ENCOUNTER 2023-12-07 11:26 | Outpatient (REF) | payer MEDICAID, SELFPAY | END 2023-12-07 11:27 | disposition home or self-care (01) | LOC: HO.LNP 11:26 | PROVIDERS: Visit Provider Internal Medicine Geriatric Medicine | DX: R12 Heartburn (principal) | CPT/HCPCS: 87338 ==

== ENCOUNTER 2023-12-12 11:01 | Outpatient (REF) | payer OTHER, SELFPAY ==
--- NOTE | ~2023-12-12 | MM_ITS ---
EXAMINATION: MM SCREENING DIGITAL BREAST TOMOSYNTHESIS, BILATERAL CLINICAL INFORMATION: Screening. Asymptomatic. COMPARISON: Mammography: Comparison is made with available priors TECHNIQUE: Digital breast mammography with tomosynthesis is performed in both the craniocaudal and mediolateral oblique views along with computer-aided detection (CAD). FINDINGS: There are scattered areas of fibroglandular density (ACR BI-RADS breast composition Category b). There are no significant masses, abnormal calcifications, or other abnormalities. MM/MM tomosynthesis screening BI IMPRESSION: No mammographic evidence of malignancy. ASSESSMENT: BI-RADS BI-RADS 1 - Negative RECOMMENDATION: Routine annual mammography screening. 1 year F/U This examination should not preclude the clinical evaluation of a suspicious palpable abnormality. This patient's information was entered into a reminder system with a target due date for their next mammogram. Electronically signed by: Sherrill Burton DO 12/24/2023 05:58 PM EDT
== END 2023-12-12 11:02 | disposition home or self-care (01) ==
LOC: HO.MAMMO 11:01
PROVIDERS: PCP Internal Medicine Geriatric Medicine; Visit Provider Internal Medicine Geriatric Medicine
DX: Z12.31 Encounter for screening mammogram for malignant neoplasm of breast (principal)
CPT/HCPCS: 77063; 77067

== ENCOUNTER → 2023-12-12 11:17 | Outpatient (BNV) | payer OTHER, SELFPAY | PROVIDERS: PCP Internal Medicine Geriatric Medicine; Visit Provider Internal Medicine | DX: Z12.31 Encounter for screening mammogram for malignant neoplasm of breast (principal) | CPT/HCPCS: 77063; 77067 ==

== ENCOUNTER 2024-03-28 12:29 | Outpatient (REF) | payer OTHER, SELFPAY ==
--- OUTSIDE RECORDS SUMMARY | 2024-03-28 14:29 | XMS_ITS | Clinical Summary ---
Author Organization [employer] Address [address] [facility] [address] [place] [address] Care Team Providers Care Medical Record Transcriber Name Role Phone Name, Ghassan MCDONALD Primary Care Provider [phone] Allergies Active Allergy Reactions Criticality Noted Date Comments Prednisone 09/15/2014 Other reaction(s): Tachycardia Numbness and tingling Medications * This document contains information received from the source organization and may not represent a complete record from that organization. omeprazole (PriLOSEC) [address] [place] ons:Chronic heartburn TAKE 1 CAPSULE BY MOUTH BEFORE BREAKFAST 90 capsule 4 Active Active Problems Problem Noted Date Diagnosed Date Anxiety 03/17/2024 Urinary incontinence 03/17/2024 Overview (03/17/2024): mixed type mixed type Adjustment disorder with mixed anxiety and depre ssed mood 06/27/2022 Screening mammogram for breast cancer 06/14/2022 Assessment & Plan (06/14/2022 4:13 PM EDT): Discussed with patient that we will call her if there are any problems with her blood work. Class 2 obesity due to exces s calories without serious comorbidity with body mass index (BMI) of 35.0 to 35.9 in adult 06/14/2022 Eating disorder 01/01/2021 Tattoo of skin 11/04/2014 Psoriasis (a type of skin inflammation) 10/11/19 14 Assessment & Plan (06/14/2022 4:02 PM EDT): She has appointment with [facility] derm 06/16/2022 OCD (obsessive compulsive disorder) 10/01/2013 Bipolar affective disorder 10/01/2013 Overview (03/17/2024): Admitted to [facility] February 2012 for SI/HI Admitted to [facility] February 2012 for SI/HI Assessment & Plan (06/14/2022 4:10 PM EDT): Patient was in a great mood today, she requested a correspondence renew clerk to help her with her bipolar disorder. [facility] sent correspondence renew clerk over to speak with Li during our appointment just to get the ball rolling. 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 Encounters Date Type Department Care Team Description 03/28/2024 11:45 AM EST Immunization [address] [address] Rossi Payne LPN Encounter for immunization (Primary Dx) 03/28/[address] [address] Ghassan Dennis MD Lab Orders (Patient needs tb test for work ) 03/28/2024 Travel 03/17/[address] [address] Sudha Lawson MA chart prep 01/25/[address] [address] Ghassan Dennis MD 12/28/[address] [address] Sudha Lawson MA jacqueline recall from Last 3 Months Immunizations Name Administration Dates Next Due Hep B, Adolescent or Pediatric 11/11/2009 Hep B, Unspecified 11/11/2009,06/11/2009, 010 Hep B, adult 06/11/2009,05/05/2009 INFLUENZA INJECTABLE QUADRIV ALANT CCIIV4 MDCK Multi-dose vial 12/04/2016 Influenza Injectable Quadriv alant Preservative Free IIV4 MDCK 04/30/2023,12/17/2012,11/21/2010,04/21 Influenza injectable quadriv alent preservative free 01/05/2020 Influenza, IIV3, injectable 12/17/2012, 1,04/21/2010 Influenza, Unspecified 12/17/2012,11/21/2010, Influenza, seasonal, injecta ble, preservative free 11/23/2023 PPD Test 11/01/2016,12/03/2015 Pfizer Covid-19 Vaccine 12+ 03/28/2024, 1,03/12/2020 Pneumococcal Conjugate PCV 13 11/02/2010 Pneumococcal Polysaccharide PPSV23 08/03/2015, TD (adult), 2 Lf tetanus tox oid, preservative free, adsorbed 05/03/2009 Td (adult), unspecified 05/03/2009 Tdap 11/23/2023,10/14/2013 Family History Medical History Relation Name Comments Colon cancer Father's Sister Diabetes Mother Heart disease Mother Prostate cancer Paternal Grandfather Relation Name Status Comments Father's Sister Mother Paternal Grandfather Social History Tobacco Use Types Packs/Day Years Used Date Smoking Tobacco: Former Cigarettes Passive Smoke Exposure: Never Smokeless Tobacco: Never Tobacco Cessation:Counseling Given: Not Answered Alcohol Use Standard Drinks/Week Comments Yes 0 (1 standard drink = 0.6 oz pur e alcohol) Occassionally Alcohol Answer Date Recorded How often do you have a drink containing alcohol ? 0 02/22/2022 How many drinks containing a lcohol do you have on a typical day when you are drinking? 0 02/22/2022 How often do you have six or more drinks on one occasion? 0 02/22/2022 Depression Answer Date Recorded Patient Health Questionnaire-9 Score 0 11/23/2023 Patient Health Questionnaire-9 Score 0 11/23/2023 Last PHQ-9: Questionnaire Data Not on file 0 11/23/2023 Housing Stability Answer Date Recorded What is your housing situation today? I have camilla black 12/18/[address] you li ve. Do you have problems with any of the following? None of the above 12/18/2022 Food Insecurity Answer Date Recorded Within the past 12 months, y ou worried that your food would run out before you got money to buy more: Never True 12/18/2022 Within the past 12 months,th e food you bought just didn't last and you didn't have enough money to get more: Never True Transportation Answer Date Recorded In the past 12 months, has l ack of transportation kept you from medical appts, meetings, work or from getting things needed for daily living? No 12/18/2022 Utilities Answer Date Recorded In the past 12 months, has t he electric, gas, oil or water company threatened to shut off services in your home? No 12/18/2022 Depression Answer Date Recorded Patient Health Questionnaire-2 Score 0 11/23/2023 Comments Unknown Sex and Gender Information Value Date Recorded Sex Assigned at Female 01/02/2022 10:33 AM EDT Legal Sex Female 10:33 AM EDT Gender Identity Female 01/02/2022 10:33 AM EDT Sexual Orientation Straight 01/02/2022 10 :33 AM EDT Last Filed Vital Signs Vital Sign Reading Time Taken Comments Blood Pressure 118/68 11/23/2023 1:25 PM EDT Pulse 73 11/23/2023 1:25 PM EDT Temperature 37.1 ??C (98.8 ??F) 10/03/2022 8:47 AM ED T Respiratory Rate 18 11/23/2023 1:25 PM EDT Oxygen Saturation 98% 11/23/2023 1:25 PM EDT Inhaled Oxygen Concentration - - Weight 94.9 kg (209 lb 3.2 oz) 11/23/2023 1:25 P M EDT Height 160 cm (5' 3 ) 11/23/2023 1:25 PM EDT Body Mass Index 37.06 11/23/2023 1:25 PM EDT Plan of Treatment Upcoming Encounters Date Type Department Care Team (Late st Contact Info) Description 05/02/2024 11:00 AM EST Office Visit [facility] [address] [place] [address] Name, MD Ghassan [address] [place] [address] Health Maintenance Due Date Last Done Comments CT Colonography 1970 Colonoscopy 1970 Colorectal Cancer Screening 1970 FIT DNA/Cologuard 1970 FIT 1970 FOBT 1970 HIV Screening 1970 Sigmoidoscopy 1970 Alcohol/Substance Use Screening 1982 Hepatitis C Screening 1988 Pap Smear 1991 Zoster Vaccines (1 of 2) 2020 SDOH Screening 06/15/2023 06/14/2022 Cervical Cancer Screening 01/11/2024 HPV/Cotest 01/11/2024 01/10/2019 Depression Screening 11/22/2024 11/23/2023, 11/23/19 Tobacco Screening 11/22/2024 11/23/2023 Mammogram 12/11/2025 12/12/2023, 08/03, 08/14/2022, Additional history exists Lipid Panel 11/26/2028 11/27/2023, 06/16/2022 DTaP/Tdap/Td Vaccines (3 - Td or Tdap) 11/22/2033 11/23/2023, 10/14/2013, 05/03/2009, Additional history exists RSV Patients and Patients Aged 60 years or older (1 - 1-dose 75+ series) 2045 Hepatitis B Vaccines Completed 11/11/2009, 11/11/2009, 06/11/2009, Additional history exists Pneumococcal Vaccine: Pediatrics (0 to 5 Years) and At-Risk Patients (6 to 64 Years) Aged Out 08/03/2015, 11/02/2010, 11/02/2010 No longer eligible based on patient's age to complete this topic Influenza Vaccine Completed 11/23/2023, , 01/05/2020, Additional history exists COVID-19 Vaccine Completed 03/28/2024, , 03/12/2020 HIB Vaccines Aged Out No longer eligi ble based on patient's age to complete this topic HPV Vaccines Aged Out No longer eligi ble based on patient's age to complete this topic Hepatitis A Vaccines Aged Out No long er eligible based on patient's age to complete this topic IPV Vaccines Aged Out No longer eligi ble based on patient's age to complete this topic Meningococcal Vaccine Aged Out No jared warren eligible based on patient's age to complete this topic RSV under 20 months Aged Out No longe r eligible based on patient's age to complete this topic Rotavirus Vaccines Aged Out No longer eligible based on patient's age to complete this topic Procedures Procedure Name Priority Date/Time Associated Diagnosis Comments BI MAMMOGRAM SCREENING TOMOSYNTHESIS BILATERAL Routine 12/12/2023 11:17 AM EDT Screening mammogram for breast cancer LIPID PANEL, STANDARD Routine 11/27/2023 8:47 AM EDT Screening for cholesterol level ZZZ HISTORICAL HPV MRNA E6/E7 Routine 01/10/2019 9:39 AM EST from Last 3 Months or Most Recently Relevant to Health Maintenance Results * BI Mammogram Screening Tomosynthesis Bilateral (12/12/2023 11:17 AM EDT) Anatomical Region Laterality Modality Breast Bilateral Mammography 12/12/2023 11:1 7 AM EDT Narrative 12/24/2023 6:01 PM EDT ? [facility] ? [address] ?[place] [address] ? Mammography Report ? Signed ? Patient: Woo,Li ?MR#: [id number] ?? 4 ? : 1970 ?Acct:[id number] ? Age/Sex: 53 / F ?ADM Date: 10/09/24 ? Loc: HO.MAMMO ? Attending Dr: Ghassan Name MD ? Ordering Physician: Name,Ghassan MD ?Results: 1Negative ? Date of Service: 12/12/23 ?Follow Up: 1 Year From Orig ?? inal Mammogram ? Procedure(s): MM tomosynthesis screening BI ?? Accession Number(s): [id number] ? cc: Name,Ghassan MCDONALD ? EXAMINATION: ?? MM SCREENING DIGITAL BREAST TOMOSYNTHESIS, BILATERAL ? CLINICAL INFORMATION: ? Screening. Asymptomatic. ? COMPARISON: ?? Mammography: Comparison is made with available priors ? TECHNIQUE: ?? Digital breast mammography with tomosynthesis is performed in both the ?? craniocaudal and mediolateral oblique views along with computer-aided ?? detection (CAD). ? FINDINGS: ?? There are scattered areas of fibroglandular density (ACR BI-RADS breast ?? composition Category b). ? There are no significant masses, abnormal calcifications, or other ?? abnormalities. ? MM/MM tomosynthesis screening BI ?? IMPRESSION: ?? No mammographic evidence of malignancy. ? ASSESSMENT: ? BI-RADS BI-RADS 1 - Negative ? RECOMMENDATION: ?? Routine annual mammography screening. ? 1 year F/U ? This examination should not preclude the clinical evaluation of a ?? suspicious palpable abnormality. ? This patient's information was entered into a reminder system with a ?? target due date for their next mammogram. ? Electronically signed by: ??Sherrill Burton DO ??12/24/2023 05:58 PM EDT ?? RP ? Dictated By: ?Sherrill Burton DO ? Signed By: ?<Electronically signed by Sherrill Burton, DO in OV> ? 12/24/23 1758 ? DD/ 1117 ? TD/TT: 12/12/23 1135 ? Window Glass Cutter Off: ? Procedure Note Donotuseinterpreter, Image - 12/24/2023 Alis [facility] [address] [place], [place] [address] Mammography Report Signed Patient: Li WooMR#: [id number] 4 : 1970Acct:[id number] Age/Sex: 53 / FADM Date: 12/12/23 Loc: HO.MAMMO Attending Dr: Ghassan Dennis MD Ordering Physician: Ghassan Dennis MDResults: 1Negative Date of Service: 12/12/23Follow Up: 1 Year From Orig inal Mammogram Procedure(s): MM tomosynthesis screening BI Accession Number(s): [id number] cc: Ghassan Dennis MD EXAMINATION: MM SCREENING DIGITAL BREAST TOMOSYNTHESIS, BILATERAL CLINICAL INFORMATION: Screening. Asymptomatic. COMPARISON: Mammography: Comparison is made with available priors TECHNIQUE: Digital breast mammography with tomosynthesis is performed in both the craniocaudal and mediolateral oblique views along with computer-aided detection (CAD). FINDINGS: There are scattered areas of fibroglandular density (ACR BI-RADS breast composition Category b). There are no significant masses, abnormal calcifications, or other abnormalities. MM/MM tomosynthesis screening BI IMPRESSION: No mammographic evidence of malignancy. ASSESSMENT: BI-RADS BI-RADS 1 - Negative RECOMMENDATION: Routine annual mammography screening. 1 year F/U This examination should not preclude the clinical evaluation of a suspicious palpable abnormality. This patient's information was entered into a reminder system with a target due date for their next mammogram. Electronically signed by: Sherrill Burton DO 12/24/2023 05:58 PM EDT Dictated By: Sherrill Burton DO Signed By: <Electronically signed by Sherrill Burton DO in OV> 12/24/23 1758 DD/ 1117 TD/TT: 12/12/23 1135 Window Glass Cutter Off: Ghassan Dennis MD IM BI PROCEDURES Edited Result - Final * (ABNORMAL) Lipid Panel, Standard (11/27/2023 8:47 AM EDT) Triglycerides 163(H) <150 mg/dL [facility] Comment:Desirable Triglyceri de: less than 150 mg/dLBorderline High Triglyceride 150-199 mg/dLHigh Triglyceride: 200-499 mg/dLVery High Triglyceride: greater than or equal to 5OO mg/dL Cholesterol 184 <200 mg/dL [facility] Comment:Desirable Cholestero l: less than 200 mg/dLBorderline High Cholesterol: 200-239 mg/dLHigh Cholesterol: greater than 239 mg/dL LDL Cholesterol Calculated 113(H) <100 mg/dL [facility] Comment:Desirable LDL: less than 100 mg/dLNear Optimal/Above Optimal LDL: 110- 129 mg/dLBorderline High LDL: 130-159 mg/dLHigh LDL: 160-189 mg/dLVery High LDL: greater than or equal to 190 mg/dL HDL Cholesterol 39(L) >40 mg/dL [facility] Comment:Desirable HDL: great er than 40 mg/dL Note: This HDL assay may give artificially low results in patients with liver disease. Blood Venous blood specimen / Unknown 11/27/2023 8:47 AM EDT 11/27/2023 11:14 AM EDT us Ghassan Dennis MD LAB BLOOD ORDERABLES Final Resul t [facility] [address] [place] [phone] * HPV mRNA E6/E7 (01/10/2019 9:39 AM EST) HPV mRNA E6/E7 Not Detected NOT DETECTED [facility] Comment: This test was performed using the APTIMA(R) HPV Assay ([employer] This assay detects E6/E7 viral messenger RNA (mRNA) from 14 high-risk HPV types (16,18,31,33,35,39,45,51, 52,56,58,59,66,68). For additional information please refer to: http://education.EyeLock.Next Glass/faq/HXI164x5 (This link is being provided for informational/ educational purposes only.) The analytical performance characteristics of this assay have been determined by [employer], [place]. The modifications have not been cleared or approved by the FDA. This assay has been validated pursuant to the CLIA regulations and is used for clinical purposes. Test Performed by [employer], [facility] [place], [address] [place], [place] Tulio Solomon M.D., Ph.D., Director of Laboratories , CLIA [id number] Please note: ??Effective 11/15/2015, HPV testing will be performed using [employer]'s APTIMA test which targets mRNA. Detecting mRNA instead of DNA, as in older methods, offers significant improvements in specificity. 01/10/2019 9:39 AM EST us Chel Chaudhry MD HISTORICAL/NON ORDERABLE L ABS Final Result Performing Organization Address City/State/RUST Co de Phone Number [facility] [address] from Last 3 Months or Most Recently Relevant to Health Maintenance Insurance [facility] Care Teams Medical Record Transcriber Relationship Specialty Start Date End Date Name, MD Ghassan [address] [place] [id number] PCP - General Internal Medicine 11/21/23
--- OUTSIDE RECORDS SUMMARY | 2024-03-28 14:29 | XMS_ITS | Encounter Summary ---
Author Organization [employer] Address [address] [facility] [address] [place] [address] Care Team Providers Care Correctional Agency Director Name Role Phone Name, Ghassan MCDONALD Primary Care Provider [phone] Reason for Visit * Reason Onset Date Comments Lab Orders 03/28/2024 Patient needs tb test for work Encounter Details Date Type Department Care Team ([facility] st Contact Info) Description 03/28/2024 Telephone [facility] [address] [place], [place] [phone] Name, MD Ghassan [address] [place] [address] Lab Orders (Patient needs tb test for work ) Social History Tobacco Use Types Packs/Day Years Used Date Smoking Tobacco: Former Cigarettes Passive Smoke Exposure: Never Smokeless Tobacco: Never Alcohol Use Standard Drinks/Week Comments Yes 0 [...] t he electric, gas, oil or water [employer] threatened to shut off services in your home? No 12/18/2022 Depression Answer Date Recorded Patient Health Questionnaire-2 Score 0 11/23/2023 Comments Unknown Sex and Gender Information Value Date Recorded Sex Assigned at Female 01/02/2022 10:33 AM EDT Legal Sex Female 10:33 AM EDT Gender Identity Female 01/02/2022 10:33 AM EDT Sexual Orientation Straight 01/02/2022 10 :33 AM EDT documented as of this encounter Miscellaneous Notes * Telephone Encounter - Jennifer Frazier RN - 03/28/2024 12:14 PM EST TC placed to pt to inform order was placed for T SPOT. Pt verbalized understanding and denies any questions or concerns at this time. * Telephone Encounter - Kim Crum - 03/28/2024 12:08 PM EST Patient needs tb test for work documented in this encounter Plan of Treatment Upcoming Encounters Date Type Department Care Team (Late st Contact Info) Description 05/02/2024 11:00 AM EST Office Visit [facility] [address] [place] [address] Name, MD Ghassan [address] [place] [address] Scheduled Orders Name Type Priority Associated Diagnoses Orde r Schedule T-SPOT??.TB Lab Routine Screening for tuberculosis Expected: 03/28/2024 (Approximate), Expires: 03/28/2025 documented as of this encounter Visit Diagnoses Diagnosis Screening for tuberculosis- Primary Screening examination for pulmonary tuberculosis documented in this encounter Additional Health Concerns Assessment Noted Time PHQ-9 Depression Total Score: 0 11/23/19 2:13 PM EDT documented as of this encounter Care Teams Correctional Agency Director Relationship Specialty Start Date End Date Name, MD Ghassan [address] [place] [address] PCP - General Internal Medicine 11/21/23 documented as of this encounter
--- OUTSIDE RECORDS SUMMARY | 2024-03-28 14:29 | XMS_ITS | Encounter Summary ---
Author Organization [employer] Address [address] [facility] [facility] [address] [address] [place] [address] Care Team Providers Care Top Loader Name Role Phone Name, Ghassan MCDONALD Primary Care Provider [phone] Encounter Details Date Type Department Care Team (Latest Contact Info) Description 03/28/2024 Travel Social History Tobacco Use Types Packs/Day Years [...] AM EDT documented as of this encounter Plan of Treatment Upcoming Encounters Date Type Department Care Team (Late st Contact Info) Description 05/02/2024 11:00 AM EST Office Visit [facility] [address] [place] [phone] Name, MD Ghassan [address] [place] [phone] documented as of this encounter Visit Diagnoses Not on filedocumented in this encounter Additional Health Concerns Assessment Noted Time PHQ-9 Depression Total Score: 0 11/23/19 24 2:13 PM EDT documented as of this encounter Care Teams Top Loader Relationship Specialty Start Date End Date Name, MD Ghassan [address] [place] [phone] PCP - General Internal Medicine 11/21/23 documented as of this encounter
--- OUTSIDE RECORDS SUMMARY | 2024-03-28 14:29 | XMS_ITS | Encounter Summary ---
Author Organization [employer] Address [address] [facility] [address] [place] [address] Care Team Providers Care Performance Manager Name Role Phone Name, Ghassan MCDONALD Primary Care Provider [phone] Reason for Visit * Reason Onset Date Comments chart prep 03/17/2024 Encounter Details Date Type Department Care Team ([facility] st Contact Info) Description 03/17/2024 Telephone [facility] [address] [place], [place] [phone] Sudha Lawson MA chart prep Social History Tobacco Use Types Packs/Day Years [...] encounter Miscellaneous Notes * Telephone Encounter - Sudha Lawson MA - 03/17/2024 10:48 AM EST Chart Prep Labs: done Images: done Vaccines due: yes Referrals: pending appt- Gastroenterology- Consultation 03/18/24 9:00 AM Tracy Mullins Screenings: colonoscopy Overdue care gaps: Sbirt, SDOH documented in this encounter Plan of Treatment Upcoming Encounters Date Type Department Care Team (Late st Contact Info) Description 05/02/2024 11:00 AM EST Office Visit [facility] [address] [place] [address] Name, MD Ghassan [address] [place] [address] documented as of this encounter Visit Diagnoses Not on filedocumented in this encounter Additional Health Concerns Assessment Noted Time PHQ-9 Depression Total Score: 0 11/23/19 24 2:13 PM EDT documented as of this encounter Care Teams Performance Manager Relationship Specialty Start Date End Date Name, MD Ghassan [address] [place] [phone] PCP - General Internal Medicine 11/21/23 documented as of this encounter
--- OUTSIDE RECORDS SUMMARY | 2024-03-28 14:29 | XMS_ITS | Encounter Summary ---
Author Organization [employer] Address [address] [facility] [address] [place] [address] Care Team Providers Care Apron Worker Name Role Phone Name, Ghassan MCDONALD Primary Care Provider [phone] Encounter Details Date Type Department Care Team ([facility] st Contact Info) Description 03/28/2024 11:45 AM EST Immunization [facility] [address] [place], [place] [phone] Rossi Payne LPN Encounter for immunization (Primary Dx) Social History Tobacco Use Types Packs/Day Years [...] AM EDT documented as of this encounter Progress Notes * Rossi Payne LPN - 03/28/2024 11:45 AM EST Subjective Patient ID: Li Woo is a 53 y.o. female who presents Pt here for [phone] [employer], [employer], 12 yr+, vaccine. Pt questionnaire indicates that pt is eligible to receive vaccine. Pt denies allergies to vaccine components. Pt educated as to signs/symptoms of Covid infection and potentialside effects of vaccination including low grade fevers, intermittent chills, fatigue, body aches and swelling/redness/pain at injection site. Pt informed of benefits of adequate hydration post vaccinations. Pt tolerated injection well and monitored for 15 minutes documented in this encounter Plan of Treatment Upcoming Encounters Date Type Department Care Team (Late st Contact Info) Description 05/02/2024 11:00 AM EST Office Visit [facility] [address] [place] [address] Name, MD Ghassan [address] [place] [address] documented as of this encounter Visit Diagnoses Diagnosis Encounter for immunization- Primary documented in this encounter Additional Health Concerns Assessment Noted Time PHQ-9 Depression Total Score: 0 11/23/19 2:13 PM EDT documented as of this encounter Care Teams Apron Worker Relationship Specialty Start Date End Date Name, MD Ghassan [address] [place] [address] PCP - General Internal Medicine 11/21/23 documented as of this encounter
--- OUTSIDE RECORDS SUMMARY | 2024-03-28 14:29 | XMS_ITS | Encounter Summary ---
Author Organization [employer] Address [address] [place] [address] 7[address] [place] [address] Care Team Providers Care Front Office Administrator Name Role Phone Cha Medina MD Primary Care Pro vider Ghassan Dennis MD Primary Care Provider [phone] Reason for Visit * Reason Onset Date Comments Referral 11/27/2022 Encounter Details Date Type Department Care Team (Late st Contact Info) Description 11/27/2022 Telephone [facility] MEDICINE [address] [place], [place] [phone] Cha Medina MD [address] [place], [place] [phone] Referral Social History Tobacco Use Types Packs/Day Years [...] Date Recorded Patient Health Questionnaire-9 Score 0 06/14/2022 Depression Answer Date Recorded Patient Health Questionnaire-2 Score 0 06/14/2022 Comments Unknown Sex and Gender Information Value Date Recorded Sex Assigned at Female 01/02/2022 10:33 AM EDT Legal Sex Female 10:33 AM EDT Gender Identity Female 01/02/2022 10:33 AM EDT Sexual Orientation Straight 01/02/2022 10 :33 AM EDT documented as of this encounter Miscellaneous Notes * Telephone Encounter - Caitlin Hugginsnez - 11/27/2022 10:41 AM EDT Tc from patient requesting the status of referral due to a pinched nerve. Patient states she came in 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 Marine Structural Welder didn't see any notes in regards. documented in this encounter Plan of Treatment Upcoming Encounters Date Type Department Care Team (Late st Contact Info) Description 05/02/2024 11:00 AM EST Office Visit [facility] MEDICINE [address] [place] [phone] NameGhassan MD [address] [place] [phone] documented as of this encounter Visit Diagnoses Not on filedocumented in this encounter Additional Health Concerns Assessment Noted Time PHQ-9 Depression Total Score: 0 06/15/19 23 3:40 PM EDT documented as of this encounter Care Teams Front Office Administrator Relationship Specialty Start Date End Date Cha Medina MD [address] [place] [phone] PCP - General Internal Medicine 11/23/22 11/20/23 NameGhassan MD [address] [place] [phone] PCP - General Internal Medicine 11/21/23 documented as of this encounter
--- OUTSIDE RECORDS SUMMARY | 2024-03-28 14:29 | XMS_ITS | Encounter Summary ---
Author Organization [employer] Address [address] [facility] [address] [place] [address] Care Team Providers Care Physiology Teacher Name Role Phone Hai Moore Primary Care Provider Unavail able Cha Medina MD Primary Care Pro vider Name, Ghassan MCDONALD Primary Care Provider [phone] Reason for Visit * Reason Comments Med Refill Encounter Details Date Type Department Care Team (Late st Contact Info) Description 08/29/2022 Refill [facility] [address] [place] [address] Tulio Lebron FNP Intervertebral disc disorder of cervical region with myelopathy Social History Tobacco Use Types Packs/Day Years [...] 11:00 AM EST Office Visit [facility] MEDICINE [address] [place] [address] Ghassan Dennis MD [address] [place] [phone] documented as of this encounter Visit Diagnoses Diagnosis Intervertebral disc disorder of cervical region with myelopathy Intervertebral cervical disc disorder with myelopathy, cervical region documented in this encounter Additional Health Concerns Assessment Noted Time PHQ-9 Depression Total Score: 0 06/15/19 3:40 PM EDT documented as of this encounter Care Teams Physiology Teacher Relationship Specialty Start Date End Date Hai Moore AGNP PCP - General Family Medicine 03/15/22 11/22/22 Cha Medina MD [address] [place] [id number] PCP - General Internal Medicine 11/23/22 11/20/23 Ghassan Dennis MD [address] [place] [phone] PCP - General Internal Medicine 11/21/23 documented as of this encounter
[2024-03-31 19:39] LABS: TS Negative Control Passed; TS Panel A 0; TS Panel B 0; TS Positive Control Passed; TSpotTB Negative (Negative)
== END 2024-03-28 12:30 | disposition home or self-care (01) ==
LOC: HO.HHCL 12:29
PROVIDERS: Visit Provider Internal Medicine Geriatric Medicine
DX: Z11.1 Encounter for screening for respiratory tuberculosis (principal)
CPT/HCPCS: 36415; 86481

== ENCOUNTER 2024-04-07 11:43 | Emergency (ER) | payer OTHER, SELFPAY ==
--- NOTE | ~2024-04-07 | XR_ITS ---
EXAMINATION: XR HAND/WRIST, LEFT CLINICAL INFORMATION: fall on ice COMPARISON: None available. TECHNIQUE: PA, lateral, oblique, and scaphoid views of the left hand and wrist. FINDINGS: No fracture, dislocation, or suspicious bone lesion. Carpal bones appear intact and normally aligned. No significant arthropathy. Normal-appearing soft tissues. XR/XR hand wrist LT IMPRESSION: No acute abnormality left wrist and hand. Electronically signed by: Tre Morrow MD 04/07/2024 01:20 PM LES
--- NOTE | ~2024-04-07 | XR_ITS ---
EXAMINATION: XR LUMBOSACRAL SPINE CLINICAL INFORMATION: low back pain s/p fall COMPARISON: None available. TECHNIQUE: Three views of the lumbosacral spine. FINDINGS: No acute cortical disruption. 1 mm anterolisthesis at L4-5 likely degenerative. Facet joint hypertrophy at L4-5 and L5-S1. Rudimentary ribs at T12. Sclerosis and the sacroiliac joints. 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 If patient's symptoms persist recommend CT lumbar spine. Electronically signed by: Missael Knight MD 04/07/2024 01:24 PM LES SCHNEIDER
--- NOTE | ~2024-04-07 | XR_ITS ---
EXAMINATION: XR KNEE, LEFT CLINICAL INFORMATION: fall on ice COMPARISON: 06/03/2020. TECHNIQUE: Four views of the left knee. FINDINGS: Normal bone mineralization. No definite fracture, dislocation, or suspicious bone lesion. Normal alignment. Mild to moderate medial and mild lateral and patellofemoral compartment osteoarthrosis. Small marginal osteophytes most predominantly medially. Mild spurring of the tibial spines. No significant joint effusion. Normal soft tissues. XR/XR knee LT 4V IMPRESSION: 1. No acute bony fracture or dislocation. 2. No joint effusion. 3. Arthritic changes. Electronically signed by: Tre Morrow MD 04/07/2024 01:26 PM LES
--- NOTE | ~2024-04-07 | XR_ITS ---
EXAMINATION: XR SHOULDER, LEFT CLINICAL INFORMATION: fall on ice COMPARISON: None available. TECHNIQUE: AP external rotation, Grashey, scapular Y, and axillary views of the left shoulder. FINDINGS: No fracture, dislocation, or suspicious bone lesion. Mild to moderate narrowing of the glenohumeral joint present with small undersurface osteophytes. There is an osseous body in the region of the inferior glenohumeral joint recess. Cannot exclude loose body. The AC joint demonstrates mild to moderate spurring, predominantly superior surface. No loss of subacromial space. Remainder of the soft tissue and bony structures appear normal. XR/XR shoulder LT min 2V IMPRESSION: 1. No acute bony abnormalities. 2. Degenerative arthritis with possible loose body, glenohumeral joint. Electronically signed by: Tre Morrow MD 04/07/2024 01:22 PM L[facility] SCHNEIDER
--- NOTE | ~2024-04-07 | CT_ITS ---
EXAMINATION: CT HEAD WITHOUT CONTRAST CLINICAL INFORMATION: fall +head strike COMPARISON: March 07, 2018. TECHNIQUE: Contiguous axial imaging was performed from the skull base to vertex without intravenous administration of contrast. This CT examination was performed using dose optimization techniques as appropriate, variously including the following: *Automated exposure control *Adjustment of mA and/or kV according to patient size (this includes techniques or standardized protocols for targeted exams where dose is matched to indication/reason for exam; i.e. extremities or head) *Use of iterative reconstruction technique DLP: 734.25 mGy-cm FINDINGS: Bony calvarium is intact. Skull base is intact. No acute intracranial hemorrhage, mass effect, midline shift, hydrocephalus or herniation. Paz-white matter differentiation is normal. Posterior cranial fossa contents demonstrated no acute intestinal hemorrhage or mass effect. Sellar/suprasellar region demonstrated no gross masses or hemorrhage. Craniocervical junction is intact. Tympanic cavities and mastoid cells are aerated. No air-fluid levels in the included paranasal sinuses. No gross hematoma, intraconal or extraconal compartments of the orbits.. CT/CT head/brain wo IV con IMPRESSION: No acute fracture, bony calvarium. No acute intracranial hemorrhage. Electronically signed by: Missael Knight MD 04/07/2024 01:55 PM EST
--- NOTE | ~2024-04-07 | CT_ITS ---
EXAMINATION: CT CERVICAL SPINE WITHOUT CONTRAST CLINICAL INFORMATION: Status post fall. COMPARISON: None available. TECHNIQUE: Contiguous axial images through the cervical spine using 3 mm collimation with bone and soft tissue algorithm. Sagittal and coronal reformatted images acquired. This CT examination was performed using dose optimization techniques as appropriate, variously including the following: *Automated exposure control *Adjustment of mA and/or kV according to patient size (this includes techniques or standardized protocols for targeted exams where dose is matched to indication/reason for exam; i.e. extremities or head) *Use of iterative reconstruction technique DLP: 486.40 mGy centimeters. FINDINGS: Craniocervical junction is intact. Incomplete fusion posterior arch of C1, congenital. C1 is intact. C2 is intact. C3 is intact. C4 is intact. C5 is intact. C6 is intact. C7 is intact. No gross malalignment between the vertebral bodies or the facet joints. Small marginal osteophyte formation inferior endplate of C5 with a well-corticated morphology. No gross prevertebral compartment hematoma. Tympanic cavities and mastoid air cells are aerated. CT/CT cervical spine wo IV con IMPRESSION: Spondylosis at C5-6 without acute fracture or trauma-related listhesis. If patient's symptoms persist recommend MRI for further imaging assessment of ligamentous injury. Fleischner guidelines were followed. Electronically signed by: Missael Knight MD 04/07/2024 01:59 PM L[facility] SCHNEIDER
[2024-04-07 12:40] VITALS: BP 153/64; PULSE 59; RESP 18; TEMP 36.1; O2SAT 98; BMI 35.5
--- NOTE | 2024-04-07 12:40 | ED.FALL ---
HPI - Fall General Chief Complaint: Fall Stated Complaint: fall, head pain, blurry vision, nausea Time Seen by Provider: 04/07/24 17:22 Source: patient, RN notes reviewed and old records reviewed Mode of arrival: ambulatory Limitations: no limitations History of Present Illness ED Provider: Ez PAVON Narrative: 53-year-old female presents for evaluation of headache, neck pain, shoulder pain, left arm pain and left knee pain. The patient reports that she was leaving work late last night. She reports slipping in the parking lot and landing on her left side. She also struck the back of her head on the ground She reports that she did not lose consciousness. She reports that she woke up this morning with pain all over. ? She has stiffness to her neck, pain in her left shoulder, hand and wrist, left knee and lower back. She did complain of some nausea but no vomiting No other complaints or concerns at this time Related Data Home Medications ?Medication ?Instructions ?Recorded ?Confirmed hydroxyzine HCl 50 mg tablet 50 mg PO QID PRN Anxiety 12/25/19 11/04/20 ibuprofen 800 mg tablet 800 mg PO Q8H PRN Pain 12/25/19 11/04/20 omeprazole magnesium 20 mg 20 mg PO DAILY 12/25/19 11/04/20 tablet,delayed release (Prilosec OTC) acetaminophen 500 mg tablet 1 - 2 tab PO Q8H PRN fever 11/04/20 11/04/20 Previous Rx's ?Medication ?Instructions ?Recorded hydrocodone 5 mg-acetaminophen 325 1 tab PO Q8H PRN pain (scale score 11/10/20 mg tablet 4-6) #21 tabs azithromycin 250 mg tablet See Rx Instructions PO .COMPLEX #6 02/05/23 tabs cyclobenzaprine 10 mg tablet 10 mg PO TID PRN muscle spasm #20 04/07/24 tabs ibuprofen 600 mg tablet 600 mg PO Q6H PRN pain #20 tabs 04/07/24 Allergies Allergy/AdvReac Type Severity Reaction Status Date / Time prednisone [PREDNISONE] AdvReac Intermediate TACHYCARDIA Verified 04/07/24 12:41 Review of Systems Constitutional: Constitutional: Denies body ache(s), Denies chills, Denies fever(s) and Reports headache(s) Eyes: Eyes: Reports blurry vision ENT: Reports headache(s) and Reports neck pain Cardiovascular: Cardiovascular: Denies chest pain and Denies syncope Gastrointestinal: Gastrointestinal: Denies abdominal pain Musculoskeletal: Musculoskeletal: Reports back pain, Reports arthralgias, Reports joint swelling, Reports limited range of motion, Reports neck pain and Reports stiffness Integumentary/Breasts: Skin/Breast: Denies rash Neurologic: Denies syncope and Reports headache(s) PMFSH Past Medical History Medical History Cervical dysplasia Cervicalgia COVID-19 vaccine series completed GERD (gastroesophageal reflux disease) Hx of bipolar disorder Spondylosis of cervical spine with radiculopathy Surgical History No history of previous surgery Family History Family History Father No problems noted. Mother No problems noted. 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 Physical Exam Vital Signs: Vital Signs: Last Vital Signs Temp 97.0 F 04/07/24 12:40 Pulse 59 04/07/24 12:40 Resp 18 04/07/24 12:40 BP 153/64 H 04/07/24 12:40 Pulse Ox 98 04/07/24 12:40 O2 Del Method Room Air 04/07/24 12:40 BMI result Body Mass Index 35.5 Const: General: healthy appearing, comfortable, no acute distress, alert and awake Nutritional Appearance: well nourished Orientation/consciousness: patient oriented x3 HEENT: Head: Yes normocephalic and Yes atraumatic Throat: Yes posterior oropharynx normal Eyes: Eyelids: Yes eyelids normal Conjunctivae: conjunctivae normal Sclerae: sclerae normal Corneas: corneas normal Pupils: Equal, round and reactive pupils present EOM: EOMs intact bilaterally Neck: Neck: Yes full ROM Resp: Effort & Inspection: normal respiratory effort, able to speak in complete sentences and not labored Skin: General skin exam: elasticity normal Neuro: General: patient oriented x3 Cranial nerves: Yes Equal, round and reactive pupils present and Yes Bilaterally intact EOM present Cognition (Neuro): normal cognition Extrem: Other: There is no obvious facial deformity to the left shoulder, elbow, respiratory hand, no deformity noted to the left knee. She has good range of motion to the above joints. Course Course Course Narrative: This is a Rapid Medical Exam performed in triage by Radha Jensen PA-C. Full HPI, ROS and PE to be performed by primary ED provider. 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 Denies LOC or AC use PE: no focal neuro deficits, ambulating w/steady gait Plan: Head/C-spine CT, XR Medical Decision Making Medical Decision Making MDM Narrative: 53-year-old female presents for evaluation of left-sided body pain and a headache after striking her head last night. She would have a CT scan of the brain, cervical spine ordered in triage. These did not show any acute traumatic injuries. The patient has a reassuring neuro deficits. X-ray showed arthritis but no evidence of traumatic injury. We will treat the patient symptomatically Differential Diagnosis Differential Diagnoses: The differential diagnosis associated with the presentation includes Cervical strain Concussion Intracranial hemorrhage Cervical fracture Arthritis Shoulder dislocation Humerus fracture Contusion Radiology Impression Discussion of test interpretation with radiology: I have reviewed the radiologist's reading. Radiologist Impression: FINDINGS: Bony calvarium is intact. Skull base is intact. No acute intracranial hemorrhage, mass effect, midline shift, hydrocephalus or herniation. Paz-white matter differentiation is normal. Posterior cranial fossa contents demonstrated no acute intestinal hemorrhage or mass effect. Sellar/suprasellar region demonstrated no gross masses or hemorrhage. Craniocervical junction is intact. Tympanic cavities and mastoid cells are aerated. No air-fluid levels in the included paranasal sinuses. No gross hematoma, intraconal or extraconal compartments of the orbits.. CT/CT head/brain wo IV con IMPRESSION: No acute fracture, bony calvarium. No acute intracranial hemorrhage. Electronically signed by: Missael Knight MD 04/07/2024 01:55 PM [facility] FINDINGS: Craniocervical junction is intact. Incomplete fusion posterior arch of C1, congenital. C1 is intact. C2 is intact. C3 is intact. C4 is intact. C5 is intact. C6 is intact. C7 is intact. No gross malalignment between the vertebral bodies or the facet joints. Small marginal osteophyte formation inferior endplate of C5 with a well-corticated morphology. No gross prevertebral compartment hematoma. Tympanic cavities and mastoid air cells are aerated. CT/CT cervical spine wo IV con IMPRESSION: Spondylosis at C5-6 without acute fracture or trauma-related listhesis. If patient's symptoms persist recommend MRI for further imaging assessment of ligamentous injury. Fleischner guidelines were followed. Electronically signed by: Missael Knight MD 04/07/2024 01:59 PM [facility] Discharge Plan Discharge Clinical Impression: Cervicalgia, Acute headache Patient Disposition: Home, Self-Care Instructions: Acute Headache (ED), Acute Neck Pain (ED) Additional Instructions: Your workup did not show any broken bones. The x-ray showed arthritis in your left shoulder, wrist and knee The CT scan of your brain did not show any traumatic injuries The CT scan of your neck showed some arthritis as well, no fractures or broken bones You will likely be sore for the next couple of days. You may use ibuprofen or Tylenol for pain. Take cyclobenzaprine as needed for muscle spasm. This may make you drowsy, do not drink alcohol or drive after taking it Prescriptions: New cyclobenzaprine 10 mg tablet 10 mg PO TID PRN (Reason: muscle spasm) Qty: 20 0RF ibuprofen 600 mg tablet 600 mg PO Q6H PRN (Reason: pain) Qty: 20 0RF No Action acetaminophen 500 mg tablet 1 - 2 tab PO Q8H PRN (Reason: fever) hydrocodone-acetaminophen 5-325 mg tablet 1 tab PO Q8H PRN (Reason: pain (scale score 4-6)) Qty: 21 0RF azithromycin 250 mg tablet See Rx Instructions .ROUTE .COMPLEX Qty: 6 0RF Rx Instructions: For 250 mg dose pack: take 500 mg today (day 1), then 250 mg for 4 days (days 2-5) ibuprofen 800 mg tablet 800 mg PO Q8H PRN (Reason: Pain) hydroxyzine HCl 50 mg tablet 50 mg PO QID PRN (Reason: Anxiety) omeprazole magnesium [Prilosec OTC] 20 mg tablet,delayed release (DR/EC) 20 mg PO DAILY Stand Alone Forms: Work/School Release Print Language: Prydeinig
--- NOTE | 2024-04-07 17:23 | MHC.EDTECH ---
pt brought to [facility] from [facility]
--- OUTSIDE RECORDS SUMMARY | 2024-04-07 17:31 | XMS_ITS | Encounter Summary ---
Author Organization [employer] Address [address] [facility] [address] [place] [address] Care Team Providers Care Binder Stripper Machine Name Role Phone Name, Ghassan MCDONALD Primary Care Provider [phone] Encounter Details Date Type Department Care Team ([facility] st Contact Info) Description 03/28/2024 11:45 AM EST Immunization [facility] MEDICINE [address] [place], [place] [phone] Rossi Payne LPN Encounter for immunization (Primary [...] y.o. female who presents Pt here for [id number] [employer] ([employer], 12 yr+, vaccine. Pt questionnaire indicates that [...] 11:00 AM EST Office Visit [facility] MEDICINE [address] [place] [address] Name, MD Ghassan [address] [place] [address] documented as of this encounter Visit Diagnoses Diagnosis Encounter for immunization- Primary documented in this encounter Additional Health Concerns Assessment Noted Time PHQ-9 Depression Total Score: 0 11/23/19 2:13 PM EDT documented as of this encounter Care Teams Binder Stripper Machine Relationship Specialty Start Date End Date Name, MD Ghassan [address] [place] [address] PCP - General Internal Medicine 11/21/23 documented as of this encounter
--- OUTSIDE RECORDS SUMMARY | 2024-04-07 17:31 | XMS_ITS | Encounter Summary ---
Author Organization [employer] Address [address] [facility] [address] [place] [address] Care Team Providers Care Agent Spa Desk Name Role Phone Name, Ghassan MCDONALD Primary Care Provider [phone] Encounter Details Date Type Department Care Team [...] Description 05/02/2024 11:00 AM EST Office Visit [facility] MEDICINE [address] [place] [phone] Name, MD Ghassan [address] [place] [place] [address] documented as of this encounter Visit Diagnoses Not on filedocumented in this encounter Additional Health Concerns Assessment Noted Time PHQ-9 Depression Total Score: 0 11/23/19 24 2:13 PM EDT documented as of this encounter Care Teams Agent Spa Desk Relationship Specialty Start Date End Date Name, MD Ghassan [address] [place] [address] PCP - General Internal Medicine 11/21/23 documented as of this encounter
--- OUTSIDE RECORDS SUMMARY | 2024-04-07 17:31 | XMS_ITS | Clinical Summary ---
Author Organization [employer] Address [address] [place] [address] Care Team Providers Care Pull Out Operator Name Role Phone Name, Ghassan MCDONALD Primary Care Provider [phone] Allergies Active Allergy Reactions Criticality Noted Date [...] 4:02 PM EDT): She has appointment with [facility] derm 06/16/2022 OCD (obsessive compulsive disorder) 10/01/2013 Bipolar affective disorder 10/01/2013 Overview (03/17/2024): Admitted to [facility] February 2012 for SI/HI Admitted to [facility] February 2012 for SI/HI Assessment & Plan (06/14/2022 4:10 PM EDT): Patient was in a great mood today, she requested a commercial sheet metal foreman to help her with her bipolar disorder. [facility] sent commercial sheet metal foreman over to speak with Li during our appointment just to get the ball rolling. 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 Encounters Date Type Department Care Team Description 04/07/2024 Orders Only [facility] External Provider, [facility] 03/28/2024 11:45 AM EST Immunization [address] [address] Rossi Payne LPN Encounter for immunization (Primary Dx) 03/28/[address] [address] Ghassan Dennis MD Lab Orders (Patient needs tb test for work ) 03/28/2024 Travel 03/17/[address] [address] Sudha Lawson MA chart prep 01/25/[address] [address] Ghassan Dennis MD from Last 3 Months Immunizations Name Administration [...] Description 05/02/2024 11:00 AM EST Office Visit [facility] [address] [place] [address] Name, MD Ghassan [address] [place] [id number] Health Maintenance Due Date Last Done Comments CT Colonography 1970 Colonoscopy 1970 Colorectal Cancer Screening 1970 FIT DNA/Cologuard 1970 FIT 1970 FOBT 1970 HIV Screening 1970 Sigmoidoscopy 1970 Alcohol/Substance Use Screening 1982 Hepatitis C Screening 1988 Pap Smear 1991 Zoster Vaccines (1 of 2) 2020 Pneumococcal Vaccine: 50+ Years (3 of 3 - PCV20 or PCV21) 08/02/2020 08/03/2015, 11/02/2010, 11/02/2010 SDOH Screening 06/15/2023 06/14/2022 Cervical Cancer Screening 01/11/2024 HPV/Cotest 01/11/2024 01/10/2019 Depression Screening 11/22/2024 11/23/2023, 11/23/19 24 Tobacco Screening 11/22/2024 11/23/2023 Mammogram 12/11/2025 12/12/2023, 08/03, 08/14/2022, Additional history exists Lipid Panel 11/26/2028 11/27/2023, 06/16/2022 DTaP/Tdap/Td Vaccines (3 - Td or Tdap) 11/22/2033 11/23/2023, 10/14/2013, 05/03/2009, Additional history exists RSV Patients and Patients Aged 60 years or older (1 - 1-dose 75+ series) 2045 Hepatitis B Vaccines Completed 11/11/2009, 11/11/2009, 06/11/2009, Additional history exists Influenza Vaccine Completed 11/23/2023, , 01/05/2020, Additional [...] Procedure Name Priority Date/Time Associated Diagnosis Comments CT CERVICAL SPINE WO CONTRAST Routine 04/07/2024 1:11 PM EST XR SHOULDER 2+ VIEWS LEFT Routine 04/07/2024 1:05 PM EST XR KNEE 4+ VIEWS LEFT Routine 04/07/2024 12:44 PM EST XR HAND WRIST LT Routine 04/07/2024 12:[address] HEAD WO CONTRAST Routine 04/07/2024 1 2:42 PM EST XR LUMBAR SPINE 2-3 VIEWS Routine 04/07/2024 12:42 PM EST T-SPOT(R).TB Routine 03/28/2024 12:30 PM EST Screening for tuberculosis BI MAMMOGRAM SCREENING TOMOSYNTHESIS BILATERAL Routine 12/12/2023 11:17 AM EDT Screening mammogram for breast cancer LIPID PANEL, STANDARD Routine 11/27/2023 8:47 AM EDT Screening for cholesterol level ZZZ HISTORICAL HPV MRNA E6/E7 Routine 01/10/2019 9:39 AM EST from Last 3 Months or Most Recently Relevant to Health Maintenance Results * CT Cervical Spine w/o Contrast (04/07/2024 1:11 PM EST) Anatomical Region Laterality Modality Spine, C-spine Computed Tomogra phy 04/07/2024 1:11 PM EST Narrative 04/07/2024 2:02 PM EST ? [facility] [facility] ?[address] ?[place] [address] ? CT Scan Report ? Signed ? Patient: Woo,Li ?MR#: [id number] ?? 4 ? : 1970 ?Acct:[id number] ? Age/Sex: 53 / F ?ADM Date: 04/07/24 ? Loc: HO.ED ? Attending Dr: ? Ordering Physician: Radha Jensen ?? Date of Service: 04/07/24 ?? Procedure(s): CT cervical spine wo IV con ?? Accession Number(s): [id number] ? cc: Name,Ghassan MCDONALD; Radha Jensen ? Report Number: ?? [id number]: Total DLP = ??486.00 mGy-cm ?? EXAMINATION: ?? CT CERVICAL SPINE WITHOUT CONTRAST ? CLINICAL INFORMATION: ?? Status post fall. ? COMPARISON: ?? None available. ? TECHNIQUE: ?? Contiguous axial images through the cervical spine using 3 mm ?? collimation with bone and soft tissue algorithm. ?? Sagittal and coronal reformatted images acquired. ? This CT examination was performed using dose optimization techniques as ?? appropriate, variously including the following: ?? *Automated exposure control ?? *Adjustment of mA and/or kV according to patient size (this includes ?? techniques or standardized protocols for targeted exams where dose is ?? matched to indication/reason for exam; i.e. extremities or head) ?? *Use of iterative reconstruction technique ?? DLP: 486.40 mGy centimeters. ? FINDINGS: ?? Craniocervical junction is intact. ?? Incomplete fusion posterior arch of C1, congenital. ?? C1 is intact. ?? C2 is intact. ?? C3 is intact. ?? C4 is intact. ?? C5 is intact. ?? C6 is intact. ?? C7 is intact. ?? No gross malalignment between the vertebral bodies or the facet joints. ?? Small marginal osteophyte formation inferior endplate of C5 with a ?? well-corticated morphology. ?? No gross prevertebral compartment hematoma. ?? Tympanic cavities and mastoid air cells are aerated. ? CT/CT cervical spine wo IV con ?? IMPRESSION: ?? Spondylosis at C5-6 without acute fracture or trauma-related listhesis. ?? If patient's symptoms persist recommend MRI for further imaging ?? assessment of ligamentous injury. ? Fleischner guidelines were followed. ? Electronically signed by: ??Missael Knight MD ??04/07/2024 01:59 PM ?? EST RP ? Dictated By: ?Missael Rangel MD ? Signed By: ?<Electronically signed by Missael Rowan MD in OV> ? 04/07/24 6849 ? DD/ 1311 ? TD/TT: 04/07/24 1344 ? Auditor Internal: ? Procedure Note Donfamilia, Image - 04/07/[address] [place] [address] [address] Scan Report Signed Patient: Li WooMR#: [id number] 4 : 1970Acct:[id number] Age/Sex: 53 / FADM Date: 04/07/24 Loc: HO.ED Attending Dr: Ordering Physician: Radha Jensen Date of Service: 04/07/24 Procedure(s): CT cervical spine wo IV con Accession Number(s): [id number] cc: Ghassan Dennis MD; Radha Jensen Report Number: [id number]: Total DLP = 486.00 mGy-cm EXAMINATION: CT CERVICAL SPINE WITHOUT CONTRAST CLINICAL INFORMATION: Status post fall. COMPARISON: None available. TECHNIQUE: Contiguous axial images through the cervical spine using 3 mm collimation with bone and soft tissue algorithm. Sagittal and coronal reformatted images acquired. This CT examination was performed using dose optimization techniques as appropriate, variously including the following: *Automated exposure control *Adjustment of mA and/or kV according to patient size (this includes techniques or standardized protocols for targeted exams where dose is matched to indication/reason for exam; i.e. extremities or head) *Use of iterative reconstruction technique DLP: 486.40 mGy centimeters. FINDINGS: Craniocervical junction is intact. Incomplete fusion posterior arch of C1, congenital. C1 is intact. C2 is intact. C3 is intact. C4 is intact. C5 is intact. C6 is intact. C7 is intact. No gross malalignment between the vertebral bodies or the facet joints. Small marginal osteophyte formation inferior endplate of C5 with a well-corticated morphology. No gross prevertebral compartment hematoma. Tympanic cavities and mastoid air cells are aerated. CT/CT cervical spine wo IV con IMPRESSION: Spondylosis at C5-6 without acute fracture or trauma-related listhesis. If patient's symptoms persist recommend MRI for further imaging assessment of ligamentous injury. Fleischner guidelines were followed. Electronically signed by: Missael Knight MD 04/07/2024 01:59 PM EST RP Dictated By: Missael Rangel MD Signed By: <Electronically signed by Missael Rowan MDin OV> 04/07/24 1359 DD/ 1311 TD/TT: 04/07/24 1344 Auditor Internal: [facility] External Provider IMG CT PROCEDURES Final Result * XR Shoulder 2+ Views Left (04/07/2024 1:05 PM EST) Anatomical Region Laterality Modality Upper Extremities, Shoulder Left Radi ographic Imaging 04/07/2024 1:05 PM EST Narrative 04/07/2024 1:25 PM EST ? [facility] ?[address] ?[place] [address] ?XRay Report ? Signed ? Patient: Woo,Li ?MR#: [id number] ?? 4 ? : 1970 ?Acct:[id number] ? Age/Sex: 53 / F ?ADM Date: 04/07/24 ? Loc: HO.ED ? Attending Dr: ? Ordering Physician: Radha Jensen ?? Date of Service: 04/07/24 ?? Procedure(s): XR shoulder LT min 2V ?? Accession Number(s): [id number] ? cc: Name,Ghassan MCDONALD; Radha Jensen ? EXAMINATION: ?? XR SHOULDER, LEFT ? CLINICAL INFORMATION: ?? fall on ice ? COMPARISON: ?? None available. ? TECHNIQUE: ?? AP external rotation, Grashey, scapular Y, and axillary views of the ?? left shoulder. ? FINDINGS: ?? No fracture, dislocation, or suspicious bone lesion. ?? Mild to moderate narrowing of the glenohumeral joint present with ?? small undersurface osteophytes. ?? There is an osseous body in the region of the inferior glenohumeral ?? joint recess. Cannot exclude loose body. ?? The AC joint demonstrates mild to moderate spurring, predominantly ?? superior surface. ?? No loss of subacromial space. ? Remainder of the soft tissue and bony structures appear normal. ? XR/XR shoulder LT min 2V ?? IMPRESSION: ?? 1. No acute bony abnormalities. ?? 2. Degenerative arthritis with possible loose body, glenohumeral joint. ? Electronically signed by: ??Tre Morrow MD ??04/07/2024 01:22 PM EST RP ? Dictated By: ?Tre Morrow MD ? Signed By: ?<Electronically signed by Tre Morrow MD in OV> ?04/07/24 1322 ? DD/ 1305 ? TD/TT: 04/07/24 1310 ? Auditor Internal: ? Procedure Note Donfamilia, Image - 04/07/2024 [place] [address] XRay Report Signed Patient: Li WooMR#: [id number] 4 : 1970Acct:[id number] Age/Sex: 53 / FADM Date: 04/07/24 Loc: HO.ED Attending Dr: Ordering Physician: Radha Jensen Date of Service: 04/07/24 Procedure(s): XR shoulder LT min 2V Accession Number(s): [id number] cc: Name,Ghassan MCDONALD; Radha Jensen EXAMINATION: XR SHOULDER, LEFT CLINICAL INFORMATION: fall on ice COMPARISON: None available. TECHNIQUE: AP external rotation, Grashey, scapular Y, and axillary views of the left shoulder. FINDINGS: No fracture, dislocation, or suspicious bone lesion. Mild to moderate narrowing of the glenohumeral joint present with small undersurface osteophytes. There is an osseous body in the region of the inferior glenohumeral joint recess. Cannot exclude loose body. The AC joint demonstrates mild to moderate spurring, predominantly superior surface. No loss of subacromial space. Remainder of the soft tissue and bony structures appear normal. XR/XR shoulder LT min 2V IMPRESSION: 1. No acute bony abnormalities. 2. Degenerative arthritis with possible loose body, glenohumeral joint. Electronically signed by: Tre Morrow MD 04/07/2024 01:22 PM EST RP Dictated By: Tre Morrow MD Signed By: <Electronically signed by Tre Morrow MD in OV> 04/07/24 1322 DD/ 1305 TD/TT: 04/07/24 1310 Auditor Internal: [facility] External Provider IMG XR PROCEDURES Final Result * XR HAND WRIST LT (04/07/2024 12:44 PM EST) Anatomical Region Laterality Modality Abdomen Radiographic Roxanne ging 04/07/2024 12:4 4 PM EST Narrative 04/07/2024 1:24 PM EST ? [facility] ?[address] ?[place] [address] ?XRay Report ? Signed ? Patient: Woo,Li ?MR#: [id number] ?? 4 ? : 1970 ?Acct:[id number] ? Age/Sex: 53 / F ?ADM Date: 04/07/24 ? Loc: HO.ED ? Attending Dr: ? Ordering Physician: Radha Jensen ?? Date of Service: 04/07/24 ?? Procedure(s): XR hand wrist LT ?? Accession Number(s): [id number] ? cc: Ghassan Dennis MD; Radha Jensen ? EXAMINATION: ?? XR HAND/WRIST, LEFT ? CLINICAL INFORMATION: ?? fall on ice ? COMPARISON: ?? None available. ? TECHNIQUE: ?? PA, lateral, oblique, and scaphoid views of the left hand and wrist. ? FINDINGS: ?? No fracture, dislocation, or suspicious bone lesion. ?? Carpal bones appear intact and normally aligned. ?? No significant arthropathy. ? Normal-appearing soft tissues. ? XR/XR hand wrist LT ?? IMPRESSION: ?? No acute abnormality left wrist and hand. ? Electronically signed by: ??Tre Morrow MD ??04/07/2024 01:20 PM EST RP ? Dictated By: ?Tre Morrow MD ? Signed By: ?<Electronically signed by Tre Morrow MD in OV> ?04/07/240 ? DD/ 1244 ? TD/TT: 04/07/24 1300 ? Auditor Internal: ? Procedure Note Donotuseinterpreter, Image - 04/07/[address] [address] XRay Report Signed Patient: Li WooMR#: [id number] 4 : 1970Acct:[id number] Age/Sex: 53 / FADM Date: 04/07/24 Loc: .ED Attending Dr: Ordering Physician: Radha Jensen Date of Service: 04/07/24 Procedure(s): XR hand wrist LT Accession Number(s): [id number] cc: Name,Ghassan MCDONALD; Radha Jensen EXAMINATION: XR HAND/WRIST, LEFT CLINICAL INFORMATION: fall on ice COMPARISON: None available. TECHNIQUE: PA, lateral, oblique, and scaphoid views of the left hand and wrist. FINDINGS: No fracture, dislocation, or suspicious bone lesion. Carpal bones appear intact and normally aligned. No significant arthropathy. Normal-appearing soft tissues. XR/XR hand wrist LT IMPRESSION: No acute abnormality left wrist and hand. Electronically signed by: Tre Morrow MD 04/07/2024 01:20 PM [facility] Dictated By: Tre Morrow MD Signed By: <Electronically signed by Tre Morrow MD in OV> 04/07/24 1320 DD/ 1244 TD/TT: 04/07/24 1300 Auditor Internal: [facility] External Provider IMG XR PROCEDURES Final Result * XR Knee 4+ Views Left (04/07/2024 12:44 PM EST) Anatomical Region Laterality Modality Lower Extremities, Knee Left Radiogra [facility] 04/07/2024 12:4 4 PM EST Narrative 04/07/2024 1:28 PM EST ? [facility] ?[address] ?[place] [address] ?XRay Report ? Signed ? Patient: Woo,Li ?MR#: [id number] ?? 4 ? : 1970 ?Acct:[id number] ? Age/Sex: 53 / F ?ADM Date: 04/07/24 ? Loc: HO.ED ? Attending Dr: ? Ordering Physician: Radha Jensen ?? Date of Service: 04/07/24 ?? Procedure(s): XR knee LT 4V ?? Accession Number(s): [id number] ? cc: Sonny,Ghassan MCDONALD; Radha Jensen ? EXAMINATION: ?? XR KNEE, LEFT ? CLINICAL INFORMATION: ?? fall on ice ? COMPARISON: ?? 06/03/2020. ? TECHNIQUE: ?? Four views of the left knee. ? FINDINGS: ?? Normal bone mineralization. No definite fracture, dislocation, or ?? suspicious bone lesion. Normal alignment. ?? Mild to moderate medial and mild lateral and patellofemoral compartment ?? osteoarthrosis. Small marginal osteophytes most predominantly medially. ?? Mild spurring of the tibial spines. ? No significant joint effusion. Normal soft tissues. ? XR/XR knee LT 4V ?? IMPRESSION: ?? 1. No acute bony fracture or dislocation. ?? 2. No joint effusion. ?? 3. Arthritic changes. ? Electronically signed by: ??Tre Morrow MD ??04/07/2024 01:26 PM EST RP ? Dictated By: ?Tre Morrow MD ? Signed By: ?<Electronically signed by Tre Morrow MD in OV> ?04/07/24 1326 ? DD/ 1244 ? TD/TT: 04/07/24 1310 ? Auditor Internal: ? Procedure Note Gaby, Image - 04/07/[address] [address] XRay Report Signed Patient: Li WooMR#: [id number] 4 : 1970Acct:[id number] Age/Sex: 53 / FADM Date: 04/07/24 Loc: HO.ED Attending Dr: Ordering Physician: Radha Jensen Date of Service: 04/07/24 Procedure(s): XR knee LT 4V Accession Number(s): [id number] cc: Sonny,Ghassan MCDONALD; Radha Jensen EXAMINATION: XR KNEE, LEFT CLINICAL INFORMATION: fall on ice COMPARISON: 06/03/2020. TECHNIQUE: Four views of the left knee. FINDINGS: Normal bone mineralization. No definite fracture, dislocation, or suspicious bone lesion. Normal alignment. Mild to moderate medial and mild lateral and patellofemoral compartment osteoarthrosis. Small marginal osteophytes most predominantly medially. Mild spurring of the tibial spines. No significant joint effusion. Normal soft tissues. XR/XR knee LT 4V IMPRESSION: 1. No acute bony fracture or dislocation. 2. No joint effusion. 3. Arthritic changes. Electronically signed by: Tre Morrow MD 04/07/2024 01:26 PM EST Dictated By: Tre Morrow MD Signed By: <Electronically signed by Tre Morrow MD in OV> 04/07/24 1326 DD/ 1244 TD/TT: 04/07/24 1310 Auditor Internal: [facility] External Provider IMG XR PROCEDURES Final Result * CT Head w/o Contrast (04/07/2024 12:42 PM EST) Anatomical Region Laterality Modality Head, Neck Computed Tomogra phy 04/07/2024 12:4 2 PM EST Narrative 04/07/2024 1:58 PM EST ? [facility] ?[address] ?[place] [address] ? CT Scan Report ? Signed ? Patient: Woo,Li ?MR#: [id number] ?? 4 ? : 1970 ?Acct:[id number] ? Age/Sex: 53 / F ?ADM Date: 04/07/24 ? Loc: HO.ED ? Attending Dr: ? Ordering Physician: Radha Jensen ?? Date of Service: 04/07/24 ?? Procedure(s): CT head/brain wo IV con ?? Accession Number(s): [id number] ? cc: Name,Ghassan MCDONALD; Radha Jensen ? Report Number: ?? [id number]: Total DLP = ??744.00 mGy-cm ?? EXAMINATION: ?? CT HEAD WITHOUT CONTRAST ? CLINICAL INFORMATION: ?? fall +head strike ? COMPARISON: ?? March 07, 2018. ? TECHNIQUE: ?? Contiguous axial imaging was performed from the skull base to vertex ?? without intravenous administration of contrast. ? This CT examination was performed using dose optimization techniques as ?? appropriate, variously including the following: ?? *Automated exposure control ?? *Adjustment of mA and/or kV according to patient size (this includes ?? techniques or standardized protocols for targeted exams where dose is ?? matched to indication/reason for exam; i.e. extremities or head) ?? *Use of iterative reconstruction technique ? DLP: ?? 734.25 mGy-cm ? FINDINGS: ?? Bony calvarium is intact. ?? Skull base is intact. ?? No acute intracranial hemorrhage, mass effect, midline shift, ?? hydrocephalus or herniation. ?? Paz-white matter differentiation is normal. ?? Posterior cranial fossa contents demonstrated no acute intestinal ?? hemorrhage or mass effect. ?? Sellar/suprasellar region demonstrated no gross masses or hemorrhage. ?? Craniocervical junction is intact. ?? Tympanic cavities and mastoid cells are aerated. No air-fluid levels in ?? the included paranasal sinuses. ?? No gross hematoma, intraconal or extraconal compartments of the orbits.. ? CT/CT head/brain wo IV con ?? IMPRESSION: ?? No acute fracture, bony calvarium. ?? No acute intracranial hemorrhage. ? Electronically signed by: ??Missael Knight MD ??04/07/2024 01:55 PM ?? EST RP ? Dictated By: ?Missael Rangel MD ? Signed By: ?<Electronically signed by Missael Rowan MD in OV> ? 04/07/24 1355 ? DD/ 1242 ? TD/TT: 04/07/24 1344 ? Auditor Internal: ? Procedure Note Donabater, Image - 04/07/[address] [address] [address] Scan Report Signed Patient: Li WooMR#: [id number] 4 : 1970Acct:[id number] Age/Sex: 53 / FADM Date: 04/07/24 Loc: HO.ED Attending Dr: Ordering Physician: Radha Jensen Date of Service: 04/07/24 Procedure(s): CT head/brain wo IV con Accession Number(s): [id number] cc: Name,Ghassan MCDONALD; Radha Jensen Report Number: [id number]: Total DLP = 744.00 mGy-cm EXAMINATION: CT HEAD WITHOUT CONTRAST CLINICAL INFORMATION: fall +head strike COMPARISON: March 07, 2018. TECHNIQUE: Contiguous axial imaging was performed from the skull base to vertex without intravenous administration of contrast. This CT examination was performed using dose optimization techniques as appropriate, variously including the following: *Automated exposure control *Adjustment of mA and/or kV according to patient size (this includes techniques or standardized protocols for targeted exams where dose is matched to indication/reason for exam; i.e. extremities or head) *Use of iterative reconstruction technique DLP: 734.25 mGy-cm FINDINGS: Bony calvarium is intact. Skull base is intact. No acute intracranial hemorrhage, mass effect, midline shift, hydrocephalus or herniation. Paz-white matter differentiation is normal. Posterior cranial fossa contents demonstrated no acute intestinal hemorrhage or mass effect. Sellar/suprasellar region demonstrated no gross masses or hemorrhage. Craniocervical junction is intact. Tympanic cavities and mastoid cells are aerated. No air-fluid levels in the included paranasal sinuses. No gross hematoma, intraconal or extraconal compartments of the orbits.. CT/CT head/brain wo IV con IMPRESSION: No acute fracture, bony calvarium. No acute intracranial hemorrhage. Electronically signed by: Missael Knight MD 04/07/2024 01:55 PM EST RP Dictated By: Missael Rangel MD Signed By: <Electronically signed by Missael Rowan MDin OV> 04/07/24 1355 DD/ 1242 TD/TT: 04/07/24 1344 Auditor Internal: [facility] External Provider IMG CT PROCEDURES Final Result * XR Lumbar Spine 2-3 Views (04/07/2024 12:42 PM EST) Anatomical Region Laterality Modality Spine, L-spine Radiographic Roxanne ging 04/07/2024 12:4 2 PM EST Narrative 04/07/2024 1:27 PM EST ? [facility] ?[address] ?[place] [address] ?XRay Report ? Signed ? Patient: Woo,Li ?MR#: [id number] ?? 4 ? : 1970 ?Acct:[id number] ? Age/Sex: 53 / F ?ADM Date: 04/07/24 ? Loc: HO.ED ? Attending Dr: ? Ordering Physician: Radha Jensen ?? Date of Service: 04/07/24 ?? Procedure(s): XR lumbar spine 2-3V ?? Accession Number(s): [id number] ? cc: Ghassan Dennis MD; Radha Jensen ? EXAMINATION: ?? XR LUMBOSACRAL SPINE ? CLINICAL INFORMATION: ?? low back pain s/p fall ? COMPARISON: ?? None available. ? TECHNIQUE: ?? Three views of the lumbosacral spine. ? FINDINGS: ?? No acute cortical disruption. 1 mm anterolisthesis at L4-5 likely ?? degenerative. Facet joint hypertrophy at L4-5 and L5-S1. ?? Rudimentary ribs at T12. Sclerosis and the sacroiliac joints. ? XR/XR lumbar spine 2-3V ?? IMPRESSION: ?? Spondylosis L4-5 and L5-S1 with a grade 1 anterolisthesis at L4-5. If ?? patient's symptoms persist recommend CT lumbar spine. ? Electronically signed by: ??Missael Knight MD ??04/07/2024 01:24 PM ?? EST RP ? Dictated By: ?Missael Rangel MD ? Signed By: ?<Electronically signed by Missael Rowan MD in OV> ? 04/07/24 1324 ? DD/ 1242 ? TD/TT: 04/07/24 1300 ? Auditor Internal: ? Procedure Note Donotuseinterpreter, Image - 04/07/[address] [address] XRay Report Signed Patient: Li WooMR#: [id number] 4 : 1970Acct:[id number] Age/Sex: 53 / FADM Date: 04/07/24 Loc: HO.ED Attending Dr: Ordering Physician: Radha Jensen Date of Service: 04/07/24 Procedure(s): XR lumbar spine 2-3V Accession Number(s): [id number] cc: Ghassan Dennis MD; Radha Jensen EXAMINATION: XR LUMBOSACRAL SPINE CLINICAL INFORMATION: low back pain s/p fall COMPARISON: None available. TECHNIQUE: Three views of the lumbosacral spine. FINDINGS: No acute cortical disruption. 1 mm anterolisthesis at L4-5 likely degenerative. Facet joint hypertrophy at L4-5 and L5-S1. Rudimentary ribs at T12. Sclerosis and the sacroiliac joints. 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 If patient's symptoms persist recommend CT lumbar spine. Electronically signed by: Missael Knight MD 04/07/2024 01:24 PM [facility] Dictated By: Missael Rangel MD Signed By: <Electronically signed by Missael Rowan MDin OV> 04/07/24 1324 DD/ 1242 TD/TT: 04/07/24 1300 Auditor Internal: [facility] External Provider IMG XR PROCEDURES Final Result * T-SPOT??.TB (03/28/2024 12:30 PM EST) T Spot TB Negative Negative [facility] Comment:A negative test resu lt does not exclude the possibilityof exposure to or infection with Mycobacteriumtuberculosis (M. tuberculosis). Patients with recentexposure to TB infected individuals exhibiting anegative T-SPOT.TB result should be considered forretesting within 6 weeks or if other relevant clinicalsymptoms indicate. Results from T-SPOT.TB testing mustbe used in conjunction with each individual'sepidemiological history, current medical status,and results of other diagnostic evaluations.The T-SPOT.TB test is qualitative and results arereported as positive, borderline, or negative, giventhat the test controls perform as expected. In linewith the Centers for Disease Control and Prevention's2010 recommendation to report quantitative measurementsalongside the qualitative result, the laboratoryprovides spot counts for informational purposes only.The T-SPOT.TB test should not be interpreted as aquantitative test. TS PANEL A 0 [facility] TS PANEL B 0 [facility] Negative Control Passed [facility] Positive Control Passed [facility] Comment:For additional infor jose, please refer tohttp://education.[facility] Expert Clinics/faq/AHT993(This link is being provided for informational/educational purposes only.)THIS TEST WAS PERFORMED AT:[employer]/[facility] [place] [address]UWOCDVVTULIO CORREA MD,PHD 03/28/2024 12:3 0 PM EST 03/28/2024 1:29 PM EST us Ghassan Dennis MD LAB BLOOD ORDERABLES Final Resul t [facility] [address] [place] [phone] * BI Mammogram Screening Tomosynthesis Bilateral (12/12/2023 11:17 AM EDT) Anatomical Region Laterality Modality Breast Bilateral Mammography 12/12/2023 11:1 7 AM EDT Narrative 12/24/2023 6:01 PM EDT ? [facility] ? [address] ?[place] [address] ? Mammography Report ? Signed ? Patient: Woo,Li ?MR#: [id number] ?? 4 ? : 1970 ?Acct:[id number] ? Age/Sex: 53 / F ?ADM Date: 12/12/23 ? Loc: HO.MAMMO ? Attending : Ghassan Dennis MD ? Ordering Physician: Name,Ghassan MCDONALD ?Results: 1Negative ? Date of Service: 12/12/23 ?Follow Up: 1 Year From Orig ?? inal Mammogram ? Procedure(s): MM tomosynthesis screening BI ?? Accession Number(s): [id number] ? cc: Name,Ghassan MCDONALD ? EXAMINATION: ?? [...] ??Sherrill Burton DO ??12/24/2023 05:58 PM EDT ? Dictated By: ?Sherrill Burton DO ? Signed By: ?<Electronically signed by Sherrill Burton, DO in OV> ? 12/24/23 3908 ? DD/ 1117 ? TD/TT: 12/12/23 1135 ? Auditor Internal: ? Procedure Note Chilo Griffin - 12/24/2023 [facility] [address] [place] [address] Mammography Report Signed Patient: Cori Woo#: [id number] 4 : 1970Acct:[id number] Age/Sex: 53 / FADM Date: 12/12/23 Loc: HO.MAMMO Attending Dr: Ghassan Dennis MD Ordering Physician: Ghassan Dennisesults: 1Negative Date of Service: 12/12/23Follow Up: 1 Year From Orig ina Mammogram Procedure(s): MM tomosynthesis screening BI Accession Number(s): [id number] cc: Ghassan Dennis MD EXAMINATION: MM SCREENING [...] 12/24/23 1758 DD/ 1117 TD/TT: 12/12/23 1135 Auditor Internal: us Ghassan Name MD GALEANO BI PROCEDURES Edited Result - Final * (ABNORMAL) Lipid Panel, Standard (11/27/2023 8:47 AM EDT) Triglycerides 163(H) <150 mg/dL [facility] Comment:Desirable Triglyceri de: less than 150 mg/dLBorderline High Triglyceride 150-199 mg/dLHigh Triglyceride: 200-499 mg/dLVery High Triglyceride: greater than or equal to 5OO mg/dL Cholesterol 184 <200 mg/dL [facility] Comment:Desirable Cholestero l: less than 200 mg/dLBorderline High Cholesterol: 200-239 mg/dLHigh Cholesterol: greater than 239 mg/dL LDL Cholesterol Calculated 113(H) <100 mg/dL [facility] Comment:Desirable LDL: less than 100 mg/dLNear Optimal/Above Optimal LDL: 110- 129 mg/dLBorderline High LDL: 130-159 mg/dLHigh LDL: 160-189 mg/dLVery High LDL: greater than or equal to 190 mg/dL HDL Cholesterol 39(L) >40 mg/dL [facility] Comment:Desirable HDL: great er than 40 mg/dL Note: This HDL assay may give artificially low results in patients with liver disease. Blood Venous blood specimen / Unknown 11/27/2023 8:47 AM EDT 11/27/2023 11:14 AM EDT us Ghassan Dennis MD LAB BLOOD ORDERABLES Final Resul t [facility] [address] [place] [phone] * HPV mRNA E6/E7 (01/10/2019 9:39 AM EST) HPV mRNA E6/E7 Not Detected NOT DETECTED [facility] Comment: This test was performed using the APTIMA(R) HPV Assay ([employer] This assay detects E6/E7 viral messenger RNA (mRNA) from 14 high-risk HPV types (16,18,31,33,35,39,45,51, 52,56,58,59,66,68). For additional information please refer to: http://SkemA.Virtual Expert Clinics/faq/ZWP191d1 (This link is being provided for informational/ educational purposes only.) The analytical performance characteristics of this assay have been determined by [employer] [place], [place]. The modifications have not been cleared or approved by the FDA. This assay has been validated pursuant to the CLIA regulations and is used for clinical purposes. Test Performed by [facility], [employer] [facility], [address] [place] [address] Tulio Correa M.D., Ph.D., Director of Laboratories , CLIA [id number] Please note: ??Effective 11/15/2015, HPV testing will be performed using [employer] APTIMA test which targets mRNA. Detecting mRNA instead of DNA, as in older methods, offers significant improvements in specificity. 01/10/2019 9:39 AM EST us Chel Chaudhry MD HISTORICAL/NON ORDERABLE L ABS Final Result [facility] [address] from Last 3 Months or Most Recently Relevant to Health Maintenance Insurance [facility] Care Teams Pull Out Operator Relationship Specialty Start Date End Date Name, MD Ghassan [address] [place] [phone] PCP - General Internal Medicine 11/21/23
--- OUTSIDE RECORDS SUMMARY | 2024-04-07 17:31 | XMS_ITS | Encounter Summary ---
Author Organization [employer] Address [address] [place] [address] Care Team Providers Care Patient Services Clerk Name Role Phone Name, Ghassan MCDONALD Primary Care Provider [phone] Reason for Visit * Reason Onset Date Comments Lab Orders 03/28/2024 Patient needs tb test for work Encounter Details Date Type Department Care Team ([facility] st Contact Info) Description 03/28/2024 Telephone [facility] [address] [place], [place] [phone] Name, MD Ghassan [address] [place] [address] Lab Orders (Patient needs tb test for [...] t he electric, gas, oil or water [employer] threatened to shut off services in your [...] Description 05/02/2024 11:00 AM EST Office Visit [facility] [address] [place] [address] Name, MD Ghassan [address] [place] [address] documented as of this encounter Procedures Procedure Name Priority Date/Time Associated Diagnosis Comments T-SPOT(R).TB Routine 03/28/2024 12:30 PM EST Screening for tuberculosis documented in this encounter Results * T-SPOT??.TB (03/28/2024 12:30 PM EST) T Spot TB Negative Negative [facility] Comment:A negative test resu lt does [...] as aquantitative test. TS PANEL A 0 [facility] TS PANEL B 0 [facility] Negative Control Passed [facility] Positive Control Passed [facility] Comment:For additional infor matian, please refer tohttp://education.Tamr.Aisle50/faq/LXI790(This link is being provided for informational/educational purposes only.)THIS TEST WAS PERFORMED AT:[employer] [address]QS[address]FAEQ[address] [place] [address]PIMNOJIJOSE CORREA MD,PHD 03/28/2024 12:3 0 PM EST 03/28/2024 1:29 PM EST us Ghassan Dennis MD LAB BLOOD ORDERABLES Final Resul t [facility] [address] [place] [phone] documented in this encounter Visit Diagnoses Diagnosis Screening for tuberculosis- Primary Screening examination for pulmonary tuberculosis documented in this encounter Additional Health Concerns Assessment Noted Time PHQ-9 Depression Total Score: 0 11/23/19 2:13 PM EDT documented as of this encounter Care Teams Patient Services Clerk Relationship Specialty Start Date End Date Name, MD Ghassan [address] [place] [address] PCP - General Internal Medicine 11/21/23 documented as of this encounter
--- OUTSIDE RECORDS SUMMARY | 2024-04-07 17:32 | XMS_ITS | Encounter Summary ---
Demographics Address [address] [place] [address] [address] [place] [address] Work Phone Mobile Phone Email Address Preferred Language en Marital Status Single Adventism Affiliation Unknown Race White Ethnic Group or Author Organization [employer] Address [address] [place] [address] Care Team Providers Care Fire Alarm Dispatcher Name Role Phone Name, Ghassan MCDONALD Primary Care Provider [phone] Encounter Details Date Type Department Care Team ([facility] st Contact Info) Description 04/07/2024 Orders Only [facility] External Provider, [facility] Social History Tobacco Use Types Packs/Day Years [...] Description 05/02/2024 11:00 AM EST Office Visit [facility] MEDICINE [address] [place] [phone] Name, MD Ghassan [address] [place] [address] documented as of this encounter Procedures Procedure Name Priority Date/Time Associated Diagnosis Comments CT CERVICAL SPINE WO CONTRAST Routine 04/07/2024 1:11 PM EST XR SHOULDER 2+ VIEWS LEFT Routine 04/07/2024 1:05 PM EST XR HAND WRIST LT Routine 04/07/2024 12:4 4 PM EST XR KNEE 4+ VIEWS LEFT Routine 04/07/2024 12:[address] HEAD WO CONTRAST Routine 04/07/2024 1 2:42 PM EST XR LUMBAR SPINE 2-3 VIEWS Routine 04/07/2024 12:42 PM EST documented in this encounter Results * CT Cervical Spine w/o Contrast (04/07/2024 1:11 PM EST) Anatomical Region Laterality Modality Spine, C-spine Computed Tomogra phy 04/07/2024 1:11 PM EST Narrative 04/07/2024 2:02 PM EST ? [facility] ?[address] ?[place] [address] ? CT Scan Report ? Signed ? Patient: Woo,Li ?MR#: [id number] ?? 4 ? : 1970 ?Acct:[id number] ? Age/Sex: 53 / F ?ADM Date: 04/07/24 ? Loc: HO.ED ? Attending Dr: ? Ordering Physician: Radha Jensen ?? Date of Service: 04/07/24 ?? Procedure(s): CT cervical spine wo IV con ?? Accession Number(s): [id number] ? cc: Name,Ghassan MCDONALD; Radha Jensen ? Report Number: ?? [id number]: Total DLP = ??486.00 mGy-cm ?? EXAMINATION: [...] Missael Rowan MD in OV> ? 04/07/24 1359 ? DD/ 1311 ? TD/TT: 04/07/24 1344 ? Water Resources Project Manager: ? Procedure Note Gaby, Image - 04/07/[address] [place] [address] [address] Scan Report Signed Patient: Li WooMR#: [id number] 4 : 1970Acct:[id number] Age/Sex: 53 / FADM Date: 04/07/24 Loc: HO.ED Attending Dr: Ordering Physician: Radha Jensen Date of Service: 04/07/24 Procedure(s): CT cervical spine wo IV con Accession Number(s): [id number] cc: Ghassan Dennis MD; Radha Jensen Report Number: [id number]: Total DLP = 486.00 mGy-cm EXAMINATION: CT [...] 04/07/24 1359 DD/ 1311 TD/TT: 04/07/24 1344 Water Resources Project Manager: [facility] External Provider IMG CT PROCEDURES Final Result * XR Shoulder 2+ Views Left (04/07/2024 1:05 PM EST) Anatomical Region Laterality Modality Upper Extremities, Shoulder Left Radi ographic Imaging 04/07/2024 1:05 PM EST Narrative 04/07/2024 1:25 PM EST ? [facility] ?[address] ?[place] [address] ?XRay Report ? Signed ? Patient: Woo,Li ?MR#: [id number] ?? 4 ? : 1970 ?Acct:[id number] ? Age/Sex: 53 / F ?ADM Date: 02/03/25 ? Loc: HO.ED ? Attending Dr: ? Ordering Physician: Pouliot,Radha PA ?? Date of Service: 04/07/24 ?? Procedure(s): XR shoulder LT min 2V ?? Accession Number(s): [id number] ? cc: Name,Ghassan MCDONALD; Radha Jensen ? [...] DD/ 1305 ? TD/TT: 04/07/24 1310 ? Water Resources Project Manager: ? Procedure Note Gaby, Chilo - 04/07/2024 [place] [address] XRay Report Signed Patient: Li WooMR#: [id number] 4 : 1970Acct:[id number] Age/Sex: 53 / FADM Date: 04/07/24 Loc: HO.ED Attending Dr: Ordering Physician: Radha Jensen Date of Service: 04/07/24 Procedure(s): XR shoulder LT min 2V Accession Number(s): [id number] cc: Ghassan Dennis MD; Radha Jensen EXAMINATION: XR SHOULDER, LEFT CLINICAL [...] 04/07/24 1322 DD/ 1305 TD/TT: 04/07/24 1310 Water Resources Project Manager: [facility] External Provider IMG XR PROCEDURES Final Result * XR Knee 4+ Views Left (04/07/2024 12:44 PM EST) Anatomical Region Laterality Modality Lower Extremities, Knee Left Radiogra phic Imaging 04/07/2024 12:4 4 PM EST Narrative 04/07/2024 1:28 PM EST ? [facility] ?[address] ?[place] [address] ?XRay Report ? Signed ? Patient: Woo,Li ?MR#: [id number] ?? 4 ? : 1970 ?Acct:[id number] ? Age/Sex: 53 / F ?ADM Date: 04/07/24 ? Loc: HO.ED ? Attending Dr: ? Ordering Physician: Radha Jensen ?? Date of Service: 04/07/24 ?? Procedure(s): XR knee LT 4V ?? Accession Number(s): [id number] ? cc: Name,Ghassan MCDONALD; Radha Jensen ? [...] DD/ 1244 ? TD/TT: 04/07/24 1310 ? Water Resources Project Manager: ? Procedure Note Gaby, Chilo - 04/07/[address] [address] XRay Report Signed Patient: Li WooMR#: [id number] 4 : 1970Acct:[id number] Age/Sex: 53 / FADM Date: 04/07/24 Loc: HO.ED Attending Dr: Ordering Physician: Radha Jensen Date of Service: 04/07/24 Procedure(s): XR knee LT 4V Accession Number(s): [id number] cc: Ghassan Dennis MD; Radha Jensen EXAMINATION: XR KNEE, LEFT CLINICAL [...] Tre Morrow MD 04/07/2024 01:26 PM EST RP Dictated By: Tre Morrow MD Signed By: <Electronically signed by Tre Morrow MD in OV> 04/07/24 1326 DD/ 1244 TD/TT: 04/07/24 1310 Water Resources Project Manager: [facility] External Provider IMG XR PROCEDURES Final Result * XR HAND WRIST LT (04/07/2024 12:44 PM EST) Anatomical Region Laterality Modality Abdomen Radiographic Roxanne ging 04/07/2024 12:4 4 PM EST Narrative 04/07/2024 1:24 PM EST ? [facility] ?[address] ?[place] [address] ?XRay Report ? Signed ? Patient: Woo,Li ?MR#: [id number] ?? 4 ? : 1970 ?Acct:[id number] ? Age/Sex: 53 / F ?ADM Date: 04/07/24 ? Loc: HO.ED ? Attending Dr: ? Ordering Physician: Radha Jensen ?? Date of Service: 04/07/24 ?? Procedure(s): XR hand wrist LT ?? Accession Number(s): [id number] ? cc: Ghassan Dennis MD; Radha Jensen [...] by Tre Morrow MD in OV> ?04/07/24 1320 ? DD/ 1244 ? TD/TT: 04/07/24 1300 ? Water Resources Project Manager: ? Procedure Note Donotmaryluter, Image - 04/07/[address] [address] XRay Report Signed Patient: Li WooMR#: [id number] 4 : 1970Acct:[id number] Age/Sex: 53 / FADM Date: 04/07/24 Loc: HO.ED Attending Dr: Ordering Physician: Radha Jensen Date of Service: 04/07/24 Procedure(s): XR hand wrist LT Accession Number(s): [id number] cc: Ghassan Dennis MD; Radha Jensen EXAMINATION: XR HAND/WRIST, LEFT CLINICAL [...] by: Tre Morrow MD 04/07/2024 01:20 PM EST Dictated By: Tre Morrow MD Signed By: <Electronically signed by Tre Morrow MD in OV> 04/07/24 1320 DD/ 1244 TD/TT: 04/07/24 1300 Water Resources Project Manager: us [facility] External Provider IMG XR PROCEDURES Final Result * CT Head w/o Contrast (04/07/2024 12:42 PM EST) Anatomical Region Laterality Modality Head, Neck Computed Tomogra phy 04/07/2024 12:4 2 PM EST Narrative 04/07/2024 1:58 PM EST ? [facility] [place] [facility] ?[address] ?[place] [address] ? CT Scan Report ? Signed ? Patient: Woo,Li ?MR#: [id number] ?? 4 ? : 1970 ?Acct:[id number] ? Age/Sex: 53 / F ?ADM Date: 04/07/24 ? Loc: HO.ED ? Attending Dr: ? Ordering Physician: Radha Jensen ?? Date of Service: 04/07/24 ?? Procedure(s): CT head/brain wo IV con ?? Accession Number(s): [id number] ? cc: Name,Ghassan MCDONALD; Radha Jensen ? Report Number: ?? [id number]: Total DLP = ??744.00 mGy-cm ?? EXAMINATION: [...] DD/ 1242 ? TD/TT: 04/07/24 1344 ? Water Resources Project Manager: ? Procedure Note Donotbreinterpreter, Image - 04/07/[address] [address] [address] Scan Report Signed Patient: Li WooMR#: [id number] 4 : 1970Acct:[id number] Age/Sex: 53 / FADM Date: 04/07/24 Loc: HO.ED Attending Dr: Ordering Physician: Radha Jensen Date of Service: 04/07/24 Procedure(s): CT head/brain wo IV con Accession Number(s): [id number] cc: Ghassan Dennis MD; Radha Jensen Report Number: [id number]: Total DLP = 744.00 mGy-cm EXAMINATION: CT [...] 04/07/24 1355 DD/ 1242 TD/TT: 04/07/24 1344 Water Resources Project Manager: us [facility] External Provider IMG CT PROCEDURES Final Result * XR Lumbar Spine 2-3 Views (04/07/2024 12:42 PM EST) Anatomical Region Laterality Modality Spine, L-spine Radiographic Roxanne ging 04/07/2024 12:4 2 PM EST Narrative 04/07/2024 1:27 PM EST ? [facility] ?[address] ?[place] [address] ?XRay Report ? Signed ? Patient: Woo,Li ?MR#: [id number] ?? 4 ? : 1970 ?Acct:[id number] ? Age/Sex: 53 / F ?ADM Date: 04/07/24 ? Loc: HO.ED ? Attending Dr: ? Ordering Physician: Radha Jensen ?? Date of Service: 04/07/24 ?? Procedure(s): XR lumbar spine 2-3V ?? Accession Number(s): [id number] ? cc: Ghassan Dennis MD; Radha eJnsen ? EXAMINATION: ?? XR LUMBOSACRAL SPINE ? [...] DD/ 1242 ? TD/TT: 04/07/24 1300 ? Water Resources Project Manager: ? Procedure Note Donotuseinterpreter, Image - 04/07/[address] [address] XRay Report Signed Patient: Li WooMR#: [id number] 4 : 1970Acct:[id number] Age/Sex: 53 / FADM Date: 04/07/24 Loc: HO.ED Attending Dr: Ordering Physician: Radha Jensen Date of Service: 04/07/24 Procedure(s): XR lumbar spine 2-3V Accession Number(s): [id number] cc: Name,Ghassan MCDONALD; Radha Jensen EXAMINATION: XR LUMBOSACRAL SPINE CLINICAL [...] by: Missael Knight MD 04/07/2024 01:24 PM EST Dictated By: Missael Rangel MD Signed By: <Electronically signed by Missael Rowan MDin OV> 04/07/24 1324 DD/ 1242 TD/TT: 04/07/24 1300 Water Resources Project Manager: [facility] External Provider IMG XR PROCEDURES Final Result documented in this encounter Visit Diagnoses Not on filedocumented in this encounter Additional Health Concerns Assessment Noted Time PHQ-9 Depression Total Score: 0 11/23/19 2:13 PM EDT documented as of this encounter Care Teams Fire Alarm Dispatcher Relationship Specialty Start Date End Date Name, MD Ghassan [address] [place] [address] PCP - General Internal Medicine 11/21/23 documented as of this encounter
--- OUTSIDE RECORDS SUMMARY | 2024-04-07 17:32 | XMS_ITS | Encounter Summary ---
Author Organization [employer] Address [address] [place] [address] 7t [place] [address] Care Team Providers Care Synthetic Filament Extruder Name Role Phone Cha Medina MD Primary Care Pro vider Ghassan Dennis MD Primary Care Provider [phone] Reason for Visit * Reason Onset Date Comments Referral 11/27/2022 Encounter Details Date Type Department Care Team (Late st Contact Info) Description 11/27/2022 Telephone [facility] [address] [place], [place] [phone] Cha Medina MD [address] [place], [place] [phone] Referral Social History Tobacco Use Types Packs/Day [...] she came in 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 Head Of Drama didn't see any notes in regards. documented in this encounter Plan of Treatment Upcoming Encounters Date Type Department Care Team (Late st Contact Info) Description 05/02/2024 11:00 AM EST Office Visit [facility] MEDICINE [address] [place] [address] NameGhassan MD [address] [place] [address] documented as of this encounter Visit Diagnoses Not on filedocumented in this encounter Additional Health Concerns Assessment Noted Time PHQ-9 Depression Total Score: 0 06/15/19 23 3:40 PM EDT documented as of this encounter Care Teams Synthetic Filament Extruder Relationship Specialty Start Date End Date Cha Medina MD [address] [place] [address] PCP - General Internal Medicine 11/23/22 11/20/23 NameGhassan MD [address] [place] [address] PCP - General Internal Medicine 11/21/23 documented as of this encounter
--- OUTSIDE RECORDS SUMMARY | 2024-04-07 17:32 | XMS_ITS | Encounter Summary ---
Author Organization [employer] Address [address] [place] [address] Care Team Providers Care Structural Metal Fabricator Apprentice Name Role Phone Hai Moore Primary Care Provider Unavail able Cha Medina MD Primary Care Pro vider Name, Ghassan MCDONALD Primary Care Provider Reason for Visit * Reason Comments Med Refill Encounter Details Date Type Department Care Team (Late st Contact Info) Description 08/29/2022 Refill [facility] [address] [place] [address] Tulio Lebron FNP Intervertebral disc disorder of [...] Description 05/02/2024 11:00 AM EST Office Visit [facility] [address] [place] [address] Ghassan Dennis MD [address] [place] [address] documented as of this encounter Visit Diagnoses Diagnosis 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
[2024-04-07] MEDS: Ibuprofen 600 MG TABLET PO (18:00)
[2024-04-07] MEDS: Cyclobenzaprine HCl 10 MG TABLET PO (18:00)
[2024-04-07 18:03] VITALS: BP 142/73; PULSE 68; RESP 18; TEMP 36.7; O2SAT 98
[2024-04-07 18:05] VITALS: BP 142/73; PULSE 68; RESP 18; TEMP 36.7; O2SAT 98
== END 2024-04-07 18:07 | disposition home or self-care (01) ==
PROVIDERS: Emergency Provider Emergency Medicine; PCP Internal Medicine Geriatric Medicine
DX: M54.2 Cervicalgia (principal); M54.50 Low back pain, unspecified; M25.562 Pain in left knee; H53.8 Other visual disturbances; R51.9 Headache, unspecified; M25.532 Pain in left wrist; M79.602 Pain in left arm; Z79.899 Other long term (current) drug therapy
CPT/HCPCS: 70450; 72100; 72125; 73030; 73110; 73130; 73564; 99284

== ENCOUNTER → 2024-04-07 12:42 | Outpatient (BNV) | payer OTHER, SELFPAY | PROVIDERS: PCP Internal Medicine Geriatric Medicine; Visit Provider Radiology Diagnostic Radiology | DX: S69.92XA Unspecified injury of left wrist, hand and finger(s), initial encounter (principal); R51.9 Headache, unspecified; S80.912A Unspecified superficial injury of left knee, initial encounter; M47.816 Spondylosis without myelopathy or radiculopathy, lumbar region; S40.912A Unspecified superficial injury of left shoulder, initial encounter; M54.2 Cervicalgia | CPT/HCPCS: 70450; 72100; 72125; 73030; 73110; 73130; 73564 ==

== ENCOUNTER 2024-04-15 16:19 | Emergency (ER) | payer OTHER, SELFPAY ==
--- NOTE | ~2024-04-15 | CT_ITS ---
CLINICAL HISTORY: fall. worsening neck pain CT cervical spine without contrast Comparison: None Findings: Normal vertebral body alignment. No significant degenerative change. No acute fractures or dislocations. Visualized intracranial contents are unremarkable. Soft tissues of the neck are normal. Lung apices are clear. IMPRESSION: No acute findings. This document has been electronically signed by: zE Johns MD on 04/15/2024 20:21:05
--- NOTE | ~2024-04-15 | CT_ITS ---
CLINICAL HISTORY: fall. wosening headache CT head without contrast Comparison: CT/SR - CT HEAD/BRAIN WO IV CON - 04/07/24 13:11 EST Findings: No intra-axial mass, midline shift, hydrocephalus, or acute hemorrhage. No significant atrophy-like change or white matter disease. Increasing fluid within the maxillary sinuses, ethmoid air cells and sphenoid sinuses. The orbits are unremarkable. There is no acute fracture. IMPRESSION: Increasing moderate paranasal sinus disease with fluid levels within the maxillary sinuses and sphenoid sinuses. Correlation for acute sinusitis. This document has been electronically signed by: Ez Johns MD on 04/15/2024 20:21:01
[2024-04-15 17:35] VITALS: BP 168/79; PULSE 63; RESP 16; TEMP 36.1; O2SAT 99; BMI 35.2
--- NOTE | 2024-04-15 17:38 | ED.GENADULT ---
HPI - General Adult General Chief complaint: Head Injury Stated complaint: Blurry vision/Dizziness since fall Time Seen by Provider: 04/15/24 23:45 Source: patient Mode of arrival: ambulatory History of Present Illness ED Provider: HPI narrative: Patient apparently slipped and fell was seen here at that time CT scans were negative Patient comes here as for last 4 days noticed blurred vision from the right eye off and on no scotomas no double vision no headache Related Data Home Medications ?Medication ?Instructions ?Recorded ?Confirmed hydroxyzine HCl 50 mg tablet 50 mg PO QID PRN Anxiety 12/25/19 11/04/20 ibuprofen 800 mg tablet 800 mg PO Q8H PRN Pain 12/25/19 11/04/20 omeprazole magnesium 20 mg 20 mg PO DAILY 12/25/19 11/04/20 tablet,delayed release (Prilosec OTC) acetaminophen 500 mg tablet 1 - 2 tab PO Q8H PRN fever 11/04/20 11/04/20 Previous Rx's ?Medication ?Instructions ?Recorded hydrocodone 5 mg-acetaminophen 325 1 tab PO Q8H PRN pain (scale score 11/10/20 mg tablet 4-6) #21 tabs azithromycin 250 mg tablet See Rx Instructions PO .COMPLEX #6 02/05/23 tabs cyclobenzaprine 10 mg tablet 10 mg PO TID PRN muscle spasm #20 04/07/24 tabs ibuprofen 600 mg tablet 600 mg PO Q6H PRN pain #20 tabs 04/07/24 zcwxhsxnuj-ousspyykkeqba-hqgpwujw 1 tab PO Q6H PRN haeadace #20 tabs 04/16/24 50 mg-325 mg-40 mg tablet Allergies Allergy/AdvReac Type Severity Reaction Status Date / Time prednisone [PREDNISONE] AdvReac Intermediate TACHYCARDIA Verified 04/15/24 17:35 Review of Systems Review of Systems: Yes all other systems are reviewed and are negative PMFSH Past Medical History Medical History COVID-19 vaccine series completed Cervical dysplasia GERD (gastroesophageal reflux disease) Hx of bipolar disorder Spondylosis of cervical spine with radiculopathy Cervicalgia Surgical History No history of previous surgery Family History Family History Father No problems noted. Mother No problems noted. 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 Oriented X3. No acute distress. Eyes: PERRLA, No Nystagmus normal fundus normal visual stewart ENT: Pharynx normal. Oral Mucosa moist atraumatic normocephalic Neck: Normal inspection. Neck supple. CVS: Normal heart rate and rhythm. Pulses normal. Respiratory: No respiratory distress. Equal air entry bilateral, no wheezing/rales/rhonchi Abdomen: Soft and nontender. Bowel sounds are present, no mass palpable, no CVA tenderness Skin: Skin warm and dry. Normal skin color. Normal skin turgor. Extremities: No lower extremity edema. No calf tenderness Neuro: Oriented X 3. No motor deficit. No sensory deficit.No cerebellar signs , cranial nerves II-XII intact Course Course Course Narrative: RME: 54 female presents to ED for worsening headache and neck pain since fall. Patient states also having nausea. Patient was sent from urgent care for repeat CT scan due to patient having worsening headache and neck pain since fall. Patient denies any neuro deficits symptoms. NIH score is 0. Patient denies any chest pain or shortness of breath. Repeat imaging ordered Medical Decision Making Medical Decision Making MDM Narrative: Patient with nonspecific right eye visual problems does have history of migraine headache does get some migraine headache likely the orifice of the migraine CT scan and of the C-spine and head was the prior to my evaluation which were negative Differential Diagnosis Differential Diagnoses: The differential diagnosis associated with the presentation includes Independent Interpretation I performed an independent interpretation of an: CT Scan Radiology Impression Discussion of test interpretation with radiology: I have reviewed the radiologist's reading. Discharge Plan Discharge Clinical Impression: Headache, migraine, Blurred vision, right eye Patient Disposition: Home, Self-Care Instructions: Migraine Headache (ED), Blurred Vision (ED) Additional Instructions: Your symptoms from the right is likely aura of migraine headache and there is no relation with the head injury Your repeat CT scan of the head and c spine again is negative Follow up with your PCP/neurologist if headache continues Follow with the line erector for blurred vision if it continues Fioricet for headaches 1 tablet every 6 hours as needed Prescriptions: New rrpbkqwajz-vtydyvfhtwyyr-zjnz 50-325-40 mg tablet 1 tab PO Q6H PRN (Reason: haeadace) Qty: 20 0RF No Action acetaminophen 500 mg tablet 1 - 2 tab PO Q8H PRN (Reason: fever) hydrocodone-acetaminophen 5-325 mg tablet 1 tab PO Q8H PRN (Reason: pain (scale score 4-6)) Qty: 21 0RF azithromycin 250 mg tablet See Rx Instructions .ROUTE .COMPLEX Qty: 6 0RF Rx Instructions: For 250 mg dose pack: take 500 mg today (day 1), then 250 mg for 4 days (days 2-5) cyclobenzaprine 10 mg tablet 10 mg PO TID PRN (Reason: muscle spasm) Qty: 20 0RF ibuprofen 600 mg tablet 600 mg PO Q6H PRN (Reason: pain) Qty: 20 0RF ibuprofen 800 mg tablet 800 mg PO Q8H PRN (Reason: Pain) hydroxyzine HCl 50 mg tablet 50 mg PO QID PRN (Reason: Anxiety) omeprazole magnesium [Prilosec OTC] 20 mg tablet,delayed release (DR/EC) 20 mg PO DAILY Stand Alone Forms: Work/School Release Interventions: ED Discharge Assessment Last Done: 04/16/24 00:26 Discharge Date/Time: 04/16/24 00:26 Print Language: [place]
[2024-04-15 20:05] VITALS: BP 127/60; PULSE 60; TEMP 36.1; O2SAT 99
[2024-04-15 22:30] VITALS: BP 149/60; PULSE 64; RESP 14; TEMP 36.6; O2SAT 99
[2024-04-16 00:26] VITALS: BP 149/60; PULSE 64; RESP 14; TEMP 36.6; O2SAT 99
== END 2024-04-16 00:26 | disposition home or self-care (01) ==
PROVIDERS: Emergency Provider Internal Medicine; PCP Internal Medicine Geriatric Medicine
DX: H53.8 Other visual disturbances (principal); M54.2 Cervicalgia; R51.9 Headache, unspecified
CPT/HCPCS: 70450; 72125; 99283; 99284

== ENCOUNTER → 2024-04-15 17:37 | Outpatient (BNV) | payer OTHER, SELFPAY | PROVIDERS: PCP Internal Medicine Geriatric Medicine; Visit Provider Radiology Vascular & Interventional Radiology | DX: J01.90 Acute sinusitis, unspecified (principal); M54.2 Cervicalgia | CPT/HCPCS: 70450; 72125 ==

== ENCOUNTER 2024-05-02 11:50 | Outpatient (REF) | payer OTHER, SELFPAY ==
--- OUTSIDE RECORDS SUMMARY | 2024-05-02 14:09 | XMS_ITS | Encounter Summary ---
Author Organization [employer] Address [address] [place] [address] [address] [place] [address] Care Team Providers Care Media Technician Name Role Phone Cha Medina MD Primary Care Pro vider Ghassan Dennis MD Primary Care Provider [phone] Reason for Visit * Reason Onset Date Comments Referral 11/27/2022 Encounter Details Date Type Department Care Team (Late st Contact Info) Description 11/27/2022 Telephone [facility] [address] [place], [place] [phone] Cha Medina MD [address] [place], [place] [phone] Referral Social History Tobacco Use Types Packs/Day [...] she came in 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 documented in this encounter Plan of Treatment Not on file documented as of this encounter Visit Diagnoses Not on filedocumented in this encounter Additional Health Concerns Assessment Noted Time PHQ-9 Depression Total Score: 0 06/15/19 23 3:40 PM EDT documented as of this encounter Care Teams Media Technician Relationship Specialty Start Date End Date Cha Medina MD [address] [place] [address] PCP - General Internal Medicine 11/23/22 11/20/23 Name, MD Ghassan [address] [place] [id number] PCP - General Internal Medicine 11/21/23 documented as of this encounter
--- OUTSIDE RECORDS SUMMARY | 2024-05-02 14:09 | XMS_ITS | Clinical Summary ---
Author Organization [employer] Address [address] [place] [address] Care Team Providers Care Cleaner Furniture Name Role Phone Name, Ghassan MCDONALD Primary Care Provider [phone] Allergies Active Allergy Reactions Criticality Noted Date Comments Prednisone 09/15/2014 Other reaction(s): Tachycardia Numbness and tingling Medications * This document contains information received from the source organization and may not represent a complete record from that organization. omeprazole (PriLOSEC) [address] [place] ons:Chronic heartburn TAKE 1 CAPSULE BY MOUTH BEFORE BREAKFAST 90 capsule 4 Active cyclobenzaprine (Flexeril) 10 MG tablet Take 1 tablet (10 mg) by mouth 3 times daily for 10 days. 30 tablet 5 Active ibuprofen 800 MG tablet Take 1 tablet (800 mg) by mouth 3 times daily. 90 tablet 2 5 07/15/19 25 Active fluticasone (Flonase) 50 MCG/ACT nasal spray Administer 2 sprays into each nostril Once per day. Shake gently. Before first use, prime pump. After use, clean tip and replace cap. 16 g 2 5 05/02/19 26 Active betamethasone valerate (Valisone) 0.1 % ointment Apply topically if needed in the morning and at bedtime (dryness). 45 g 2 5 Active Active Problems Problem Noted Date Diagnosed [...] 4:02 PM EDT): She has appointment with [facility] derm 06/16/2022 OCD (obsessive compulsive disorder) 10/01/2013 Bipolar affective disorder 10/01/2013 Overview (03/17/2024): Admitted to [facility] February 2012 for SI/HI Admitted to [facility] February 2012 for SI/HI Assessment & Plan (06/14/2022 4:10 PM EDT): Patient was in a great mood today, she requested a derrick hand to help her with her bipolar disorder. [facility] sent derrick hand over to speak with Li during our appointment just to get the ball rolling. 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 Encounters Date Type Department Care Team Description 05/02/2024 11:00 AM EST Office Visit [facility] [address] [place] [address] Name, MD Ghassan Sinus pressure (Primary Dx); Transaminitis 05/02/2024 Travel 04/29/2024 Telephone [facility] [address] [place] [address] Ghassan Dennis MD chartprep 04/15/2024 3:20 PM EST Office Visit [facility] [address] [address] Crystal Beard MD Blurred vision (Primary Dx); Injury of head, initial encounter; Acute bilateral low back pain without sciatica 04/15/2024 Telephone [facility] [address] [address] Crystal Beard MD Call To Expect ([facility]) 04/07/2024 Orders Only [facility] External Provider, [facility] 03/28/2024 11:45 AM EST Immunization [facility] [address] [place] [address] Rossi Payne LPN Encounter for immunization (Primary Dx) 03/28/[address] [address] Ghassan Dennis MD Lab Orders (Patient needs tb test for work ) 03/28/2024 Travel 03/17/[address] [address] Sudha Lawson MA chart prep from Last 3 Months Immunizations Name Administration [...] PPD Test 11/01/2016,12/03/2015 Pfizer Covid-19 Vaccine 12+ 03/28/2024,,03/12/2020 Pneumococcal Conjugate PCV 13 11/02/2010 Pneumococcal Polysaccharide [...] Sign Reading Time Taken Comments Blood Pressure 132/69 05/02/2024 11:04 AM EST Pulse 68 05/02/2024 11:04 AM EST Temperature 35.6 ??C (96 ??F) 05/02/2024 11:04 AM EST Respiratory Rate 21 05/02/2024 11:04 AM EST Oxygen Saturation 98% 05/02/2024 11:04 AM EST Inhaled Oxygen Concentration - - Weight 93.4 kg (206 lb) 05/02/2024 11:04 AM EST Height 160 cm (5' 3 ) 05/02/2024 11:04 AM EST Body Mass Index 36.49 05/02/2024 11:04 AM EST Plan of Treatment Health Maintenance Due Date Last Done Comments [...] Screening 11/22/2024 11/23/2023, 11/23/19 24 Tobacco Screening 05/02/2025 05/02/2024 Mammogram 12/11/2025 12/12/2023, 0604/2022, 08/14/2022, Additional history exists Lipid Panel 11/26/2028 [...] Comments CT CERVICAL SPINE WO CONTRAST Routine 04/15/2024 8:[address] HEAD WO CONTRAST Routine 04/15/2024 8 :[address] CERVICAL SPINE WO CONTRAST Routine 04/07/2024 [...] Results * CT Cervical Spine w/o Contrast (04/15/2024 8:21 PM EST) Only the most recent of2 resultswithin the time period is included. Anatomical Region Laterality Modality Spine, C-spine Computed Tomogra phy 04/15/2024 8:21 PM EST Narrative 04/15/2024 8:23 PM EST ? [facility] ?[address] ?[place] [address] ? CT Scan Report ? Signed ? Patient: Woo,Li ?MR#: [id number] ?? 4 ? : 1970 ?Acct:[id number] ? Age/Sex: 54 / F ?ADM Date: 04/15/ ? Loc: HO.ED ? Attending Dr: ? Ordering Physician: David Santiago ?? Date of Service: 04/15/24 ?? Procedure(s): CT cervical spine wo IV con ?? Accession Number(s): [id number] ? cc: David Santiago; Name,Ghassan MCDONALD ? Report Number: ?? [id number]: Total DLP = ??540.88 mGy-cm ? CLINICAL HISTORY: fall. worsening neck pain ? CT cervical spine without contrast ? Comparison: None ? Findings: ?? Normal vertebral body alignment. ?? No significant degenerative change. ?? No acute fractures or dislocations. ? Visualized intracranial contents are unremarkable. ?? Soft tissues of the neck are normal. ?? Lung apices are clear. ? IMPRESSION: ?? No acute findings. ? This document has been electronically signed by: Ez Johns MD on ?? 04/15/2024 20:21:05 ? Dictated By: ?Ez Johns MD ? Signed By: ?<Electronically signed by Ez Johns MD in OV> ? 04/15/242021 ? DD/ 20 ? TD/TT: 04/15/242020 ? Buckle Sewer Machine: ? Procedure Note Donabater, Image - 04/15/[address] [place] [address] [address] Scan Report Signed Patient: Li WooMR#: [id number] 4 : 1970Acct:[id number] Age/Sex: 54 / FADM Date: 04/15/24 Loc: HO.ED Attending Dr: Ordering Physician: David Santiago Date of Service: 04/15/24 Procedure(s): CT cervical spine wo IV con Accession Number(s): [id number] cc: David Santiago; Name,Ghassan MCDONALD Report Number: [id number]: Total DLP = 540.88 mGy-cm CLINICAL HISTORY: fall. worsening neck pain CT cervical spine without contrast Comparison: None Findings: Normal vertebral body alignment. No significant degenerative change. No acute fractures or dislocations. Visualized intracranial contents are unremarkable. Soft tissues of the neck are normal. Lung apices are clear. IMPRESSION: No acute findings. This document has been electronically signed by: Ez Johns MD on 04/15/2024 20:21:05 Dictated By: Ez Johns MD Signed By: <Electronically signed by Ez Johns MD in OV> 04/15/242021 DD/ 20 TD/TT: 04/15/242020 Buckle Sewer Machine: us [facility] External Provider IMG CT PROCEDURES Final Result * CT Head w/o Contrast (04/15/2024 8:21 PM EST) Only the most recent of2 resultswithin the time period is included. Anatomical Region Laterality Modality Head, Neck Computed Tomogra phy 04/15/2024 8:21 PM EST Narrative 04/15/2024 8:23 PM EST ? [facility] ?[address] ?[place] [address] ? CT Scan Report ? Signed ? Patient: Woo,Li ?MR#: [id number] ?? 4 ? : 1970 ?Acct:[id number] ? Age/Sex: 54 / F ?ADM Date: 04/15/24 ? Loc: HO.ED ? Attending Dr: ? Ordering Physician: David Santiago ?? Date of Service: 04/15/24 ?? Procedure(s): CT head/brain wo IV con ?? Accession Number(s): [id number] ? cc: David Santiago; Name,Ghassan MCDONALD ? Report Number: ?? [id number]: Total DLP = ??729.17 mGy-cm ? CLINICAL HISTORY: fall. wosening headache ? CT head without contrast ? Comparison: CT/SR - CT HEAD/BRAIN WO IV CON - 04/07/24 13:11 EST ? Findings: ?? No intra-axial mass, midline shift, hydrocephalus, or acute hemorrhage. ?? No significant atrophy-like change or white matter disease. ?? Increasing fluid within the maxillary sinuses, ethmoid air cells and ?? sphenoid sinuses. ?? The orbits are unremarkable. ?? There is no acute fracture. ? IMPRESSION: ?? Increasing moderate paranasal sinus disease with fluid levels within the ?? maxillary sinuses and sphenoid sinuses. Correlation for acute sinusitis. ? This document has been electronically signed by: Ez Johns MD on ?? 04/15/2024 20:21:01 ? Dictated By: ?Ez Johns MD ? Signed By: ?<Electronically signed by Ez Johns MD in OV> ? 04/15/242021 ? DD/ 20 ? TD/TT: 04/15/242020 ? Buckle Sewer Machine: ? Procedure Note Chilo Griffin - 04/15/[address] [address] [address] Scan Report Signed Patient: Li WooMR#: [id number] 4 : 1970Acct:[id number] Age/Sex: 54 / FADM Date: 04/15/24 Loc: HO.ED Attending Dr: Ordering Physician: David Satniago Date of Service: 04/15/24 Procedure(s): CT head/brain wo IV con Accession Number(s): [id number] cc: David Santiago; Name,Ghassan MCDONALD Report Number: [id number]: Total DLP = 729.17 mGy-cm CLINICAL HISTORY: fall. wosening headache CT head without contrast Comparison: CT/SR - CT HEAD/BRAIN WO IV CON - 04/07/24 13:11 EST Findings: No intra-axial mass, midline shift, hydrocephalus, or acute hemorrhage. No significant atrophy-like change or white matter disease. Increasing fluid within the maxillary sinuses, ethmoid air cells and sphenoid sinuses. The orbits are unremarkable. There is no acute fracture. IMPRESSION: Increasing moderate paranasal sinus disease with fluid levels within the maxillary sinuses and sphenoid sinuses. Correlation for acute sinusitis. This document has been electronically signed by: Ez Johns MD on 04/15/2024 20:21:01 Dictated By: Ez Johsn MD Signed By: <Electronically signed by Ez Johns MD in OV> 04/15/242021 DD/ 20 TD/TT: 04/15/242020 Buckle Sewer Machine: [facility] External Provider IMG CT PROCEDURES Final Result * XR Shoulder 2+ Views Left (04/07/2024 1:05 PM EST) Anatomical Region Laterality Modality Upper Extremities, Shoulder Left Radi ographic Imaging 04/07/2024 1:05 PM EST Narrative 04/07/2024 1:25 PM EST ? [facility] ?[address] ?[place] [address] ?XRay Report ? Signed ? Patient: Woo,Li ?MR#: [id number] ?? 4 ? : 1970 ?Acct:[id number] ? Age/Sex: 53 / F ?ADM Date: 04/07/24 ? Loc: HO.ED ? Attending Dr: ? Ordering Physician: Radha Jensen ?? Date of Service: 04/07/24 ?? Procedure(s): XR shoulder LT min 2V ?? Accession Number(s): [id number] ? cc: Name,Ghassan MCDONALD; Radha Jensen ? [...] Morrow MD ??04/07/2024 01:22 PM EST RP ?? Workstation: [id number] ? Dictated By: ?Tre Morrow MD ? Signed By: ?<Electronically signed by Tre Morrow MD in OV> ?04/07/24 1322 ? DD/ 1305 ? TD/TT: 04/07/24 1310 ? Buckle Sewer Machine: ? Procedure Note Chilo Griffin - 04/07/2024 [facility] [address] [place] [address] XRay Report Signed Patient: Li Woo#: [id number] 4 : 1970Acct:[id number] Age/Sex: 53 / FADM Date: 04/07/24 Loc: HO.ED Attending Dr: Ordering Physician: Radha Jensen Date of Service: 04/07/24 Procedure(s): XR shoulder LT min 2V Accession Number(s): [id number] cc: Sonny,Ghassan MCDONALD; Radha Jensen EXAMINATION: XR SHOULDER, LEFT [...] Tre Morrow MD 04/07/2024 01:22 PM EST Dictated By: Tre Morrow MD Signed By: <Electronically signed by Tre Morrow MD in OV> 04/07/24 1322 DD/ 1305 TD/TT: 04/07/24 1310 Buckle Sewer Machine: [facility] External Provider IMG XR PROCEDURES Final Result * XR HAND WRIST LT (04/07/2024 12:44 PM EST) Anatomical Region Laterality Modality Abdomen Radiographic Roxanne ging 04/07/2024 12:4 4 PM EST Narrative 04/07/2024 1:24 PM EST ? [facility] ?[address] ?[place] [address] ?XRay Report ? Signed ? Patient: Woo,Li ?MR#: [id number] ?? 4 ? : 1970 ?Acct:[id number] ? Age/Sex: 53 / F ?ADM Date: 02/03/25 ? Loc: HO.ED ? Attending Dr: ? Ordering Physician: Radha Jensen ?? Date of Service: 04/07/24 ?? Procedure(s): XR hand wrist LT ?? Accession Number(s): [id number] ? cc: Name,Ghassan MCDONALD; Radha Jensen ? EXAMINATION: ?? XR HAND/WRIST, [...] DD/ 1244 ? TD/TT: 04/07/24 1300 ? Buckle Sewer Machine: ? Procedure Note Chilo Griffin - 04/07/2024 [place] [address] XRay Report Signed Patient: Li WooMR#: [id number] 4 : 1970Acct:[id number] Age/Sex: 53 / FADM Date: 04/07/24 Loc: HO.ED Attending Dr: Ordering Physician: Radha Jensen Date of Service: 04/07/24 Procedure(s): XR hand wrist LT Accession Number(s): [id number] cc: Ghassan Dennis MD; Radha Jensen EXAMINATION: [...] 04/07/24 1320 DD/ 1244 TD/TT: 04/07/24 1300 Buckle Sewer Machine: [facility] External Provider IMG XR PROCEDURES Final Result * XR Knee 4+ Views Left (04/07/2024 12:44 PM EST) Anatomical Region Laterality Modality Lower Extremities, Knee Left Radiogra phic Imaging 04/07/2024 12:4 4 PM EST Narrative 04/07/2024 1:28 PM EST ? [facility] ?[address] ?[place] [address] ?XRay Report ? Signed ? Patient: Li Woo ?MR#: [id number] ?? 4 ? : 1970 ?Acct:[id number] ? Age/Sex: 53 / F ?ADM Date: 04/07/24 ? Loc: HO.ED ? Attending Dr: ? Ordering Physician: Radha Jensen ?? Date of Service: 04/07/24 ?? Procedure(s): XR knee LT 4V ?? Accession Number(s): [id number] ? cc: Name,Ghassan MCDONALD; Radha Jensen ? [...] signed by Tre Morrow MD in OV> ?04/07/246 ? DD/ 1244 ? TD/TT: 04/07/24 1310 ? Buckle Sewer Machine: ? Procedure Note Donotuseinterpreter, Image - 04/07/2024 [place] [address] XRay Report Signed Patient: Li WooMR#: [id number] 4 : 1970Acct:[id number] Age/Sex: 53 / FADM Date: 04/07/24 Loc: HO.ED Attending Dr: Ordering Physician: Radha Jensen Date of Service: 04/07/24 Procedure(s): XR knee LT 4V Accession Number(s): [id number] cc: Ghassan Dennis MD; Radha Jensen EXAMINATION: [...] by: Tre Morrow MD 04/07/2024 01:26 PM [facility] Dictated By: Tre Morrow MD Signed By: <Electronically signed by Tre Morrow MD in OV> 04/07/24 1326 DD/ 1244 TD/TT: 04/07/24 1310 Buckle Sewer Machine: [facility] External Provider IMG XR PROCEDURES Final Result * XR Lumbar Spine 2-3 Views (04/07/2024 12:42 PM EST) Anatomical Region Laterality Modality Spine, L-spine Radiographic Roxanne ging 04/07/2024 12:4 2 PM EST Narrative 04/07/2024 1:27 PM EST ? [facility] ?[address] ?[place], [place] [address] ?XRay Report ? Signed ? Patient: Woo,Li ?MR#: [id number] ?? 4 ? : 1970 ?Acct:[id number] ? Age/Sex: 53 / F ?ADM Date: 04/07/24 ? Loc: HO.ED ? Attending Dr: ? Ordering Physician: Radha Jensen ?? Date of Service: 04/07/24 ?? Procedure(s): XR lumbar spine 2-3V ?? Accession Number(s): [id number] ? cc: Ghassan Dennis MD; Radha Jensen [...] DD/ 1242 ? TD/TT: 04/07/24 1300 ? Buckle Sewer Machine: ? Procedure Note Donotuseinterpreter, Image - 04/07/[address] [address] XRay Report Signed Patient: Li WooMR#: [id number] 4 : 1970Acct:[id number] Age/Sex: 53 / FADM Date: 04/07/24 Loc: HO.ED Attending Dr: Ordering Physician: Radha Jensen Date of Service: 04/07/24 Procedure(s): XR lumbar spine 2-3V Accession Number(s): [id number] cc: Sonny,Ghassan MCDONALD; Radha Jensen EXAMINATION: XR LUMBOSACRAL SPINE [...] 04/07/24 1324 DD/ 1242 TD/TT: 04/07/24 1300 Buckle Sewer Machine: [facility] External Provider IMG XR PROCEDURES Final Result * T-SPOT??.TB (03/28/2024 12:30 PM EST) T Spot TB Negative Negative [facility] Comment:A negative test resu lt [...] as aquantitative test. TS PANEL A 0 [facility] TS PANEL B 0 [facility] Negative Control Passed [facility] Positive Control Passed [facility] Comment:For additional infor jose, please refer tohttp://education.Dasher/faq/MXL391(This link is being provided for informational/educational purposes only.)THIS TEST WAS PERFORMED AT:[employer] [id number] [place] [address]KRMGZOQTULIO CORREA MD,PHD 03/28/2024 12:3 0 PM EST 03/28/2024 1:29 PM EST Ghassan Dennis MD LAB BLOOD ORDERABLES Final Resul t [facility] [address] [place] [phone] * BI Mammogram Screening Tomosynthesis Bilateral (12/12/2023 11:17 AM EDT) Anatomical Region Laterality Modality Breast Bilateral Mammography 12/12/2023 11:1 7 AM EDT Narrative 12/24/2023 6:01 PM EDT ? [facility] ? [address] ?[place] [address] ? Mammography Report ? Signed ? Patient: Woo,Li ?MR#: [id number] ?? 4 ? : 1970 ?Acct:[id number] ? Age/Sex: 53 / F ?ADM Date: 12/12/23 ? Loc: HO.MAMMO ? Attending Dr: Ghassan Dennis MD ? Ordering Physician: Sonny,Ghassan MCDONALD ?Results: 1Negative ? Date of Service: 12/12/23 ?Follow Up: 1 Year From Orig ?? inal Mammogram ? Procedure(s): MM tomosynthesis screening BI ?? Accession Number(s): [id number] ? cc: Name,Ghassan MCDONALD ? EXAMINATION: ?? [...] DD/ 1117 ? TD/TT: 12/12/23 1135 ? Buckle Sewer Machine: ? Procedure Note Donishaaninterpreter, Image - 12/24/2023 [place] [facility] [address] [place] [address] Mammography Report Signed Patient: Li WooMR#: [id number] 4 : 1970Acct:[id number] Age/Sex: 53 / FADM Date: 12/12/23 Loc: HO.MAMMO Attending Dr: Ghassan Dennis MD Ordering Physician: Ghassan Dennisesults: 1Negative Date of Service: 12/12/23Follow Up: 1 Year From Orig inal Mammogram Procedure(s): MM tomosynthesis screening BI Accession Number(s): [id number] cc: Ghassan Dennis MD EXAMINATION: MM SCREENING [...] Sherrill Burton DO 12/24/2023 05:58 PM EDT RP Dictated By: Sherrill Burton DO Signed By: <Electronically signed by Sherrill Burton DO in OV> 12/24/23 1758 DD/ 1117 TD/TT: 12/12/23 1135 Buckle Sewer Machine: us Ferrell Name IMG BI PROCEDURES Edited Result - Final * (ABNORMAL) Lipid Panel, Standard (11/27/2023 8:47 AM EDT) Triglycerides 163(H) <150 mg/dL [facility] Comment:Desirable Triglyceri de: less than 150 mg/dLBorderline High Triglyceride 150-199 mg/dLHigh Triglyceride: 200-499 mg/dLVery High Triglyceride: greater than or equal to 5OO mg/dL Cholesterol 184 <200 mg/dL [facility] Comment:Desirable Cholestero l: less than 200 mg/dLBorderline High Cholesterol: 200-239 mg/dLHigh Cholesterol: greater than 239 mg/dL LDL Cholesterol Calculated 113(H) <100 mg/dL [facility] Comment:Desirable LDL: less than 100 mg/dLNear Optimal/Above Optimal LDL: 110- 129 mg/dLBorderline High LDL: 130-159 mg/dLHigh LDL: 160-189 mg/dLVery High LDL: greater than or equal to 190 mg/dL HDL Cholesterol 39(L) >40 mg/dL [facility] Comment:Desirable HDL: great er than 40 mg/dL Note: This HDL assay may give artificially low results in patients with liver disease. Blood Venous blood specimen / Unknown 11/27/2023 8:47 AM EDT 11/27/2023 11:14 AM EDT us Ghassan Dennis MD LAB BLOOD ORDERABLES Final Resul t [facility] [address] [place] [address] [phone] * HPV mRNA E6/E7 (01/10/2019 9:39 AM EST) HPV mRNA E6/E7 Not Detected NOT DETECTED [facility] Comment: This test was performed using the APTIMA(R) HPV Assay ([employer] This assay detects E6/E7 viral messenger RNA (mRNA) from 14 high-risk HPV types (16,18,31,33,35,39,45,51, 52,56,58,59,66,68). For additional information please refer to: http://education.Dasher/faq/CGF449r4 (This link is being provided for informational/ educational purposes only.) The analytical performance characteristics of this assay have been determined by [employer] [place]. The modifications have not been cleared or approved by the FDA. This assay has been validated pursuant to the CLIA regulations and is used for clinical purposes. Test Performed by [facility], [employer] [facility], [address] [place] [address] Tulio Correa M.D., Ph.D., Director of Laboratories , CLIA [id number] Please note: ??Effective 11/15/2015, HPV testing will be performed using [employer]'s APTIMA test which targets mRNA. Detecting mRNA instead of DNA, as in older methods, offers significant improvements in specificity. 01/10/2019 9:39 AM EST us Chel Chaudhry MD HISTORICAL/NON ORDERABLE L ABS Final Result [facility] [address] from Last 3 Months or Most Recently Relevant to Health Maintenance Insurance [facility] ALLIED INSURANCE WORK COMP Care Teams Cleaner Furniture Relationship Specialty Start Date End Date Name, MD Ghassan [address] [place] [phone] PCP - General Internal Medicine 11/21/23
--- OUTSIDE RECORDS SUMMARY | 2024-05-02 14:09 | XMS_ITS | Encounter Summary ---
Author Organization [employer] Address [address] [place] [address] Care Team Providers Care Emt B Name Role Phone Name, Ghassan MCDONALD Primary Care Provider [phone] Encounter Details Date Type Department Care Team (Latest Contact Info) Description 05/02/2024 Travel Social History Tobacco Use Types Packs/Day [...] as of this encounter Plan of Treatment Not on file documented as of this encounter Visit Diagnoses Not on filedocumented in this encounter Additional Health Concerns Assessment Noted Time PHQ-9 Depression Total Score: 0 11/23/19 2:13 PM EDT documented as of this encounter Care Teams Emt B Relationship Specialty Start Date End Date Name, MD Ghassan [address] [place] [phone] PCP - General Internal Medicine 11/21/23 documented as of this encounter
--- OUTSIDE RECORDS SUMMARY | 2024-05-02 14:09 | XMS_ITS | Encounter Summary ---
Author Organization [employer] Address [address] [place] [address] Care Team Providers Care Plastics Fabricator Name Role Phone Name, Ghassan MCDONALD Primary Care Provider [phone] Reason for Visit * Reason Comments Follow-up Encounter Details Date Type Department Care Team ([facility] st Contact Info) Description 05/02/2024 11:00 AM EST Office Visit [facility] [address] [place], [place] [id number] Name, MD Ghassan [address] [place] [address] Sinus pressure (Primary Dx); Transaminitis Social History Tobacco Use Types Packs/Day Years [...] AM EDT documented as of this encounter Last Filed Vital Signs Vital Sign Reading [...] Mass Index 36.49 05/02/2024 11:04 AM EST documented in this encounter Progress Notes * Ghassan Dennis MD - 05/02/2024 11:00 AM EST Subjective Patient ID: Li Woo is a 54 y.o. female who presents for Follow-up. Patient comes for a follow-up visit and we discussed several issues. The patient complains of low back pain, neck pain, bilateral shoulder pain. The patient is having the symptoms since a fall. The patient explains to me that she slipped on ice and fell on her back hitting the back of the head. She was evaluated at [facility] ER with CT scan of the head and neck that were negative for acute pathology. The patient had incidental finding of possible sinusitis. Today she denies any fevers or chills but she admits to sensation of sinus pressure and congested nose. The patient explains to me that she has been using OTC NSAIDs and muscle relaxants prescribed at the ER. Shetells me her low back pain and neck pain have improved significantly. We discussed the results of her most recent blood work. She had mild transaminitis. Her CBC is normal. She rarely drinks alcohol and she is not using antipsychotics anymore. She is obese. I told her I suspect fatty liver. I recommended checking viral hepatitis serology and she agreed. Today she asked me for refill of topical steroid she uses to treat psoriasis. Review of Systems Constitutional: Negative for chills and fever. HENT: Negative for sore throat. Respiratory: Negative for cough, shortness of breath and wheezing. Cardiovascular: Negative for chest pain, palpitations and leg swelling. Gastrointestinal: Negative for abdominal pain. Visit Vitals BP 132/69 (BP Location: Left arm, Patient Position: Sitting, BP Cuff Size: Adult) Pulse 68 Temp 96 ??F (35.6 ??C) (Temporal) Resp 21 Ht 5' 3 (1.6 m) Wt 206 lb (93.4 kg) SpO2 98% BMI 36.49 kg/m?? Smoking Status Former BSA 2.04 m?? Objective Physical Exam Constitutional: Appearance: Normal appearance. Cardiovascular: Rate and Rhythm: Normal rate and regular rhythm. Heart sounds: No murmur heard. No gallop. Pulmonary: Effort: Pulmonary effort is normal. No respiratory distress. Breath sounds: Normal breath sounds. No wheezing. Musculoskeletal: Right lower leg: No edema. Left lower leg: No edema. Skin: Comments: The patient has skin lesions on the lower legs consistent with psoriasis. Neurological: Mental Status: She is alert. Assessment/Plan Diagnoses and all orders for this visit: Sinus pressure Comments: I recommended trial of Flonase. She is encouraged to call if symptoms persist. Transaminitis Comments: Likely fatty liver. We discussed importance of weight loss. Avoidance of sweets and soda and alcohol. Check testing listed below Orders: - Hepatitis C Viral RNA, Quantitative, Real-Time PCR; Future - Hepatitis B surface antigen, EIA; Future - Hepatitis B Surface Antibody, Qualitative; Future - Hepatitis A Antibody, Total; Future Other orders - fluticasone (Flonase) 50 MCG/ACT nasal spray; Administer 2 sprays into each nostril Once per day.Shake gently. Before first use, prime pump. After use, clean tip and replace cap. - I refilled her topical steroid as requested for treatment of mild psoriasis betamethasone valerate (Valisone) 0.1 % ointment; Apply topically if needed in the morning and at bedtime (dryness). documented in this encounter Plan of Treatment Scheduled Orders Name Type Priority Associated Diagnoses Orde r Schedule Hepatitis C Viral RNA, Quantitative, Real-Time PCR Lab Routine Transaminitis Expected: 05/02/2024 (Approximate), Expires: 05/02/2025 Hepatitis B surface antigen, EIA Lab Routine Transaminitis Expected: 05/02/2024 (Approximate), Expires: 05/02/2025 Hepatitis B Surface Antibody, Qualitative Lab Routine Transaminitis Expected: 05/02/2024 (Approximate), Expires: 05/02/2025 Hepatitis A Antibody, Total Lab Routine Transaminitis Expected: 05/02/2024 (Approximate), Expires: 05/02/2025 documented as of this encounter Visit Diagnoses Diagnosis Sinus pressure- Primary Other diseases of nasal cavity and sinuses Transaminitis Nonspecific elevation of levels of transaminase or lactic acid dehydrogenase (LDH) documented in this encounter Additional Health Concerns Assessment Noted Time PHQ-9 Depression Total Score: 0 11/23/19 24 2:13 PM EDT documented as of this encounter Care Teams Plastics Fabricator Relationship Specialty Start Date End Date Name, MD Ghassan [address] [place] [address] PCP - General Internal Medicine 11/21/23 documented as of this encounter
--- OUTSIDE RECORDS SUMMARY | 2024-05-02 14:09 | XMS_ITS | Encounter Summary ---
Author Organization [employer] Address [address] 7[address] [place] [address] Care Team Providers Care Edge Baster Name Role Phone Name, Ghassan MCDONALD Primary Care Provider [phone] Reason for Visit * Reason Onset Date Comments Call To Expect 04/15/2024 [facility] Encounter Details Date Type Department Care Team ([facility] Contact Info) Description 04/15/2024 Telephone [facility] [address] [place] [address] Crystal Beard MD [address] [place] [address] Call To Expect ([facility]) Social History Tobacco Use Types Packs/Day Years [...] encounter Miscellaneous Notes * Telephone Encounter - Roxie Fritz RN - 04/15/2024 2:24 PM EST Call to expect per Dr Beard to [facility]. Spoke to Bceca HYDE, Verbalized understanding and agreement. documented in this encounter Plan of Treatment Not on file documented as of this encounter Visit Diagnoses Not on filedocumented in this encounter Additional Health Concerns Assessment Noted Time PHQ-9 Depression Total Score: 0 11/23/19 2:13 PM EDT documented as of this encounter Care Teams Edge Baster Relationship Specialty Start Date End Date Name, MD Ghassan [address] [place] [address] PCP - General Internal Medicine 11/21/23 documented as of this encounter
--- OUTSIDE RECORDS SUMMARY | 2024-05-02 14:09 | XMS_ITS | Encounter Summary ---
Author Organization [employer] Address [address] 7[address] [place] [address] Care Team Providers Care Physician Asst Name Role Phone Name, Ghassan MCDONALD Primary Care Provider [phone] Reason for Visit * Reason Onset Date Comments chartprep 04/29/2024 Encounter Details Date Type Department Care Team ([facility] st Contact Info) Description 04/29/2024 Telephone [facility] [address] [place], [place] [phone] Name, MD Ghassan [address] [place] [address] chartprep Social History Tobacco Use Types Packs/Day Years [...] the past 12 months, has t he [employer], oil or water company threatened to [...] encounter Miscellaneous Notes * Telephone Encounter - Kerry Patel [place] - 04/29/2024 10:57 AM EST Chart Prep Labs: done Images: done Vaccines due: yes Pcv20, and zoster. Referrals: not applicable Screenings: colonoscopy , pap smear , HIV Overdue care gaps: Sbirt, SDOH documented in this encounter Plan of Treatment Not on file documented as of this encounter Visit Diagnoses Not on filedocumented in this encounter Additional Health Concerns Assessment Noted Time PHQ-9 Depression Total Score: 0 11/23/19 24 2:13 PM EDT documented as of this encounter Care Teams Physician Asst Relationship Specialty Start Date End Date Name, MD Ghassan [address] [place] [address] PCP - General Internal Medicine 11/21/23 documented as of this encounter
--- OUTSIDE RECORDS SUMMARY | 2024-05-02 14:09 | XMS_ITS | Encounter Summary ---
Demographics Address [address] [place] [address] [address] [place] [address] Work Phone Mobile Phone Email Address Preferred Language en Marital Status Single Buddhism Affiliation Unknown Race White Ethnic Group or Author Organization [employer] Address [address] [place] [address] Care Team Providers Care 8Th Grade Mathematics Teacher Name Role Phone Name, Ghassan MCDONALD Primary Care Provider [phone] Encounter Details Date Type Department Care Team ([facility] st Contact Info) Description 04/07/2024 Orders Only [facility] External Provider, [facility] Social History Tobacco Use Types Packs/Day Years [...] on file documented as of this encounter Procedures Procedure [...] Spine w/o Contrast (04/15/2024 8:21 PM EST) Anatomical Region Laterality Modality Spine, C-spine Computed Tomogra phy 04/15/2024 8:21 PM EST Narrative 04/15/2024 8:23 PM EST ? [facility] ?[address] ?[place] [address] ? CT Scan Report ? Signed ? Patient: Woo,Li ?MR#: [id number] ?? 4 ? : 1970 ?Acct:[id number] ? Age/Sex: 54 / F ?ADM Date: 04/15/24 ? Loc: HO.ED ? Attending Dr: ? Ordering Physician: David Santiago ?? Date of Service: 04/15/24 ?? Procedure(s): CT cervical spine wo IV con ?? Accession Number(s): [id number] ? cc: David Santiago; Name,Ghassan MCDONALD ? Report Number: ?? [id number]: Total DLP = ??540.88 mGy-cm ? CLINICAL [...] ? DD/ 20 ? TD/TT: 04/15/242020 ? Trimmer Sawyer: ? Procedure Note Chilo Griffin - 04/15/[address] [address] [address] Scan Report Signed Patient: Li WooMR#: [id number] 4 : 1970Acct:[id number] Age/Sex: 54 / FADM Date: 04/15/24 Loc: HO.ED Attending Dr: Ordering Physician: David Santiago Date of Service: 04/15/24 Procedure(s): CT cervical spine wo IV con Accession Number(s): [id number] cc: David Santiago; Name,Ghassan MCDONALD Report Number: [id number]: Total DLP = 540.88 mGy-cm CLINICAL HISTORY: [...] in OV> 04/15/242021 DD/ 20 TD/TT: 04/15/242020 Trimmer Sawyer: [facility] External Provider IMG CT PROCEDURES Final Result * CT Head w/o Contrast (04/15/2024 8:21 PM EST) Anatomical Region Laterality Modality Head, Neck Computed Tomogra phy 04/15/2024 8:21 PM EST Narrative 04/15/2024 8:23 PM EST ? [facility] ?[address] ?[place] [address] ? CT Scan Report ? Signed ? Patient: Li Woo ?MR#: [id number] ?? 4 ? : 1970 ?Acct:[id number] ? Age/Sex: 54 / F ?ADM Date: 04/15/24 ? Loc: HO.ED ? Attending Dr: ? Ordering Physician: David Santiago ?? Date of Service: 04/15/24 ?? Procedure(s): CT head/brain wo IV con ?? Accession Number(s): [id number] ? cc: David Santiago; Name,Ghassan MCDONALD ? Report Number: ?? [id number]: Total DLP = ??729.17 mGy-cm ? CLINICAL [...] ? DD/ 20 ? TD/TT: 04/15/242020 ? Trimmer Sawyer: ? Procedure Note Donabater, Image - 04/15/[address] [place] [address] [address] Scan Report Signed Patient: Li WooMR#: [id number] 4 : 1970Acct:[id number] Age/Sex: 54 / FADM Date: 04/15/24 Loc: HO.ED Attending Dr: Ordering Physician: David Santiago Date of Service: 04/15/24 Procedure(s): CT head/brain wo IV con Accession Number(s): [id number] cc: David Santiago; Name,Ghassan MCDONALD Report Number: [id number]: Total DLP = 729.17 mGy-cm CLINICAL HISTORY: [...] MD on 04/15/2024 20:21:01 Dictated By: Ez Johns MD Signed By: <Electronically signed by Ez Johns MD in OV> 04/15/242021 DD/ 20 TD/TT: 04/15/242020 Trimmer Sawyer: [facility] External Provider IMG CT PROCEDURES Final Result * CT Cervical Spine w/o Contrast (04/07/2024 1:11 PM EST) Anatomical Region Laterality Modality Spine, C-spine Computed Tomogra phy 04/07/2024 1:11 PM EST Narrative 04/07/2024 2:02 PM EST ? [facility] ?[address] ?[place] [address] ? CT Scan Report ? Signed ? Patient: Woo,Li ?MR#: [id number] ?? 4 ? : 1970 ?Acct:[id number] ? Age/Sex: 53 / F ?ADM Date: 04/07/24 ? Loc: HO.ED ? Attending Dr: ? Ordering Physician: Radha Jensen ?? Date of Service: 04/07/24 ?? Procedure(s): CT cervical spine wo IV con ?? Accession Number(s): [id number] ? cc: Ghassan Dennis MD; Radha Jensen ? Report Number: ?? [id number]: Total DLP = ??486.00 mGy-cm ?? EXAMINATION: [...] Knight MD ??04/07/2024 01:59 PM ?? EST ? Dictated By: ?Missael Rangel MD ? Signed By: ?<Electronically signed by Missael Rowan MD in OV> ? 04/07/24 1359 ? DD/ 1311 ? TD/TT: 04/07/24 1344 ? Trimmer Sawyer: ? Procedure Note Gaby, Chilo - 04/07/[address] [place] [address] [address] Scan Report Signed Patient: Li WooMR#: [id number] 4 : 1970Acct:[id number] Age/Sex: 53 / FADM Date: 04/07/24 Loc: HO.ED Attending Dr: Ordering Physician: Radha Jensen Date of Service: 04/07/24 Procedure(s): CT cervical spine wo IV con Accession Number(s): [id number] cc: Ghassan Dennis MD; Radha Jensen Report Number: [id number]: Total DLP = 486.00 mGy-cm EXAMINATION: CT [...] 04/07/24 1359 DD/ 1311 TD/TT: 04/07/24 1344 Trimmer Sawyer: [facility] External Provider IMG CT PROCEDURES Final Result * XR Shoulder 2+ Views Left (04/07/2024 1:05 PM EST) Anatomical Region Laterality Modality Upper Extremities, Shoulder Left Radi ographic Imaging 04/07/2024 1:05 PM EST Narrative 04/07/2024 1:25 PM EST ? [facility] ?[address] ?[place] [address] ?XRay Report ? Signed ? Patient: Woo,Li ?MR#: [id number] ?? 4 ? : 1970 ?Acct:[id number] ? Age/Sex: 53 / F ?ADM Date: 02/03/25 ? Loc: HO.ED ? Attending Dr: ? Ordering Physician: Radha Jensen ?? Date of Service: 04/07/24 ?? Procedure(s): XR shoulder LT min 2V ?? Accession Number(s): [id number] ? cc: Sonny,Ghassan MCDONALD; Radha Jensen ? [...] PM EST RP ? Dictated By: ?Tre Mrorow MD ? Signed By: ?<Electronically signed by Tre Morrow MD in OV> ?04/07/24 1322 ? DD/ 1305 ? TD/TT: 04/07/24 1310 ? Trimmer Sawyer: ? Procedure Note Chilo Griffin - 04/07/[address] [address] XRay Report Signed Patient: Cori Woo#: [id number] 4 : 1970Acct:[id number] Age/Sex: 53 / FADM Date: 04/07/24 Loc: HO.ED Attending Dr: Ordering Physician: Radha Jensen Date of Service: 04/07/24 Procedure(s): XR shoulder LT min 2V Accession Number(s): [id number] cc: Ghassan Dennis MD; Radha Jensen EXAMINATION: [...] 04/07/24 1322 DD/ 1305 TD/TT: 04/07/24 1310 Trimmer Sawyer: [facility] External Provider IMG XR PROCEDURES Final Result * XR Knee 4+ Views Left (04/07/2024 12:44 PM EST) Anatomical Region Laterality Modality Lower Extremities, Knee [facility] 04/07/2024 12:4 4 PM EST Narrative 04/07/2024 1:28 PM EST ? [facility] ?[address] ?[place] [address] ?XRay Report ? Signed ? Patient: Woo,Li ?MR#: [id number] ?? 4 ? : 1970 ?Acct:[id number] ? Age/Sex: 53 / F ?ADM Date: 02/03/25 ? Loc: HO.ED ? Attending Dr: ? Ordering Physician: Radha Jensen ?? Date of Service: 04/07/24 ?? Procedure(s): XR knee LT 4V ?? Accession Number(s): [id number] ? cc: Name,Ghassan MCDONALD; Radha Jensen ? [...] DD/ 1244 ? TD/TT: 04/07/24 1310 ? Trimmer Sawyer: ? Procedure Note Gaby, Image - 04/07/[address] [address] XRay Report Signed Patient: Li WooMR#: [id number] 4 : 1970Acct:[id number] Age/Sex: 53 / FADM Date: 04/07/24 Loc: HO.ED Attending Dr: Ordering Physician: Radha Jensen Date of Service: 04/07/24 Procedure(s): XR knee LT 4V Accession Number(s): [id number] cc: Ghassan Dennis MD; Radha Jensen EXAMINATION: [...] 04/07/24 1326 DD/ 1244 TD/TT: 04/07/24 1310 Trimmer Sawyer: [facility] External Provider IMG XR PROCEDURES Final Result * XR HAND WRIST LT (04/07/2024 12:44 PM EST) Anatomical Region Laterality Modality Abdomen Radiographic Roxanne ging 04/07/2024 12:4 4 PM EST Narrative 04/07/2024 1:24 PM EST ? [facility] ?[address] ?[place] [address] ?XRay Report ? Signed ? Patient: Woo,Li ?MR#: [id number] ?? 4 ? : 1970 ?Acct:[id number] ? Age/Sex: 53 / F ?ADM Date: 04/07/24 ? Loc: HO.ED ? Attending Dr: ? Ordering Physician: Radha Jensen ?? Date of Service: 04/07/24 ?? Procedure(s): XR hand wrist LT ?? Accession Number(s): [id number] ? cc: Sonny,Ghassan MCDONALD; Radha Jensen ? [...] DD/ 1244 ? TD/TT: 04/07/24 1300 ? Trimmer Sawyer: ? Procedure Note Donabater, Image - 04/07/[address] [address] XRay Report Signed Patient: Li WooMR#: [id number] 4 : 1970Acct:[id number] Age/Sex: 53 / FADM Date: 04/07/24 Loc: HO.ED Attending Dr: Ordering Physician: Radha Jensen Date of Service: 04/07/24 Procedure(s): XR hand wrist LT Accession Number(s): [id number] cc: Ghassan Dennis MD; Radha Jensen EXAMINATION: [...] by: Tre Morrow MD 04/07/2024 01:20 PM [facility] Dictated By: Tre Morrow MD Signed By: <Electronically signed by Tre Morrow MD in OV> 04/07/24 1320 DD/ 1244 TD/TT: 04/07/24 1300 Trimmer Sawyer: us [facility] External Provider IMG XR PROCEDURES Final Result * CT Head w/o Contrast (04/07/2024 12:42 PM EST) Anatomical Region Laterality Modality Head, Neck Computed Tomogra phy 04/07/2024 12:4 2 PM EST Narrative 04/07/2024 1:58 PM EST ? [facility] ?[address] ?[place] [address] ? CT Scan Report ? Signed ? Patient: Woo,Li ?MR#: [id number] ?? 4 ? : 1970 ?Acct:[id number] ? Age/Sex: 53 / F ?ADM Date: 04/07/24 ? Loc: HO.ED ? Attending Dr: ? Ordering Physician: Radha Jensen ?? Date of Service: 04/07/24 ?? Procedure(s): CT head/brain wo IV con ?? Accession Number(s): [id number] ? cc: Ghassan Dennis MD; Radha Jensen ? Report Number: ?? [id number]: Total DLP = ??744.00 mGy-cm ?? EXAMINATION: [...] Missael Rowan MD in OV> ? 04/07/24 6835 ? DD/ 1242 ? TD/TT: 04/07/24 1344 ? Trimmer Sawyer: ? Procedure Note Gaby, Image - 04/07/[address] [place] [address] [address] Scan Report Signed Patient: Li WooMR#: [id number] 4 : 1970Acct:[id number] Age/Sex: 53 / FADM Date: 04/07/24 Loc: HO.ED Attending Dr: Ordering Physician: Radha Jensen Date of Service: 04/07/24 Procedure(s): CT head/brain wo IV con Accession Number(s): [id number] cc: Ghassan Dennis MD; Radha Jensen Report Number: [id number]: Total DLP = 744.00 mGy-cm EXAMINATION: CT [...] 04/07/24 1355 DD/ 1242 TD/TT: 04/07/24 1344 Trimmer Sawyer: [facility] External Provider IMG CT PROCEDURES Final Result * XR Lumbar Spine 2-3 Views (04/07/2024 12:42 PM EST) Anatomical Region Laterality Modality Spine, L-spine Radiographic Roxanne ging 04/07/2024 12:4 2 PM EST Narrative 04/07/2024 1:27 PM EST ? [facility] ?[address] ?[place] [address] ?XRay Report ? Signed ? Patient: Woo,Li ?MR#: [id number] ?? 4 ? : 1970 ?Acct:[id number] ? Age/Sex: 53 / F ?ADM Date: 02/03/25 ? Loc: HO.ED ? Attending Dr: ? Ordering Physician: Pouliot,Radha PA ?? Date of Service: 04/07/24 ?? Procedure(s): XR lumbar spine 2-3V ?? Accession Number(s): [id number] ? cc: Sonny,Ghassan MCDONALD; Radha Jensen ? EXAMINATION: ?? XR LUMBOSACRAL [...] Knight MD ??04/07/2024 01:24 PM ?? EST ? Dictated By: ?Missael Rangel MD ? Signed By: ?<Electronically signed by Missael Rowan MD in OV> ? 04/07/24 1324 ? DD/ 1242 ? TD/TT: 04/07/24 1300 ? Trimmer Sawyer: ? Procedure Note Gaby, Chilo - 04/07/[address] [address] XRay Report Signed Patient: Li WooMR#: [id number] 4 : 1970Acct:[id number] Age/Sex: 53 / FADM Date: 04/07/24 Loc: HO.ED Attending Dr: Ordering Physician: Radha Jensen Date of Service: 04/07/24 Procedure(s): XR lumbar spine 2-3V Accession Number(s): [id number] cc: Ghassan Dennis MD; Radha Jensen EXAMINATION: [...] 04/07/24 1324 DD/ 1242 TD/TT: 04/07/24 1300 Trimmer Sawyer: [facility] External Provider IMG XR PROCEDURES Final Result documented in this encounter Visit Diagnoses Not on filedocumented in this encounter Additional Health Concerns Assessment Noted Time PHQ-9 Depression Total Score: 0 11/23/19 24 2:13 PM EDT documented as of this encounter Care Teams 8Th Grade Mathematics Teacher Relationship Specialty Start Date End Date Name, MD Ghassan [address] [place] [address] PCP - General Internal Medicine 11/21/23 documented as of this encounter
--- OUTSIDE RECORDS SUMMARY | 2024-05-02 14:09 | XMS_ITS | Encounter Summary ---
Author Organization [employer] Address [address] [place] [address] Care Team Providers Care A Operator Name Role Phone Hai Moore Primary Care Provider Unavail able Cha Medina MD Primary Care Pro vider Name, Ghassan MCDONALD Primary Care Provider [phone] Reason for Visit * Reason Comments Med Refill Encounter Details Date Type Department Care Team (Late st Contact Info) Description 08/29/2022 Refill [facility] [address] [place] [address] Tulio Lebron FNP Intervertebral disc disorder of [...] documented as of this encounter Care Teams A Operator Relationship Specialty Start Date End Date Hai Moore AGNP PCP - General Family Medicine 03/15/22 11/22/22 Cha Medina MD [address] [place] [address] PCP - General Internal Medicine 11/23/22 11/20/23 Ghassan Dennis MD [address] [place] [address] PCP - General Internal Medicine 11/21/23 documented as of this encounter
--- OUTSIDE RECORDS SUMMARY | 2024-05-02 14:09 | XMS_ITS | Encounter Summary ---
Author Organization [employer] Address [address] [place] [address] Care Team Providers Care Candy Mixer Name Role Phone Name, Ghassan MCDONALD Primary Care Provider [phone] Encounter Details Date Type Department Care Team ([facility] st Contact Info) Description 04/15/2024 3:20 PM EST Office Visit [facility] [address] [place] [address] Crystal Beard MD [address] [place] [address] Blurred vision (Primary Dx); Injury of head, initial encounter; Acute bilateral low back pain without sciatica Social History Tobacco Use Types Packs/Day Years [...] the past 12 months, has t he [employer], gas, oil or water [employer] threatened to shut off services in your [...] Sign Reading Time Taken Comments Blood Pressure 129/66 04/15/2024 2:11 PM EST Pulse 72 04/15/2024 2:11 PM EST Temperature 36.3 ??C (97.3 ??F) 04/15/2024 2:11 PM ES T Respiratory Rate 18 04/15/2024 2:11 PM EST Oxygen Saturation 97% 04/15/2024 2:11 PM EST Inhaled Oxygen Concentration - - Weight 94 kg (207 lb 3.2 oz) 04/15/2024 2:11 PM EST Height - - Body Mass Index 36.7 11/23/2023 1:25 PM EDT documented in this encounter Progress Notes * Crystal Beard MD - 04/15/2024 3:20 PM EST Subjective Patient ID: Li Woo is a 54 y.o. female who presents for No chief complaint on file.. Blurred Vision This is a new problem. The current episode started yesterday. The problem occurs intermittently. Associated symptoms include vertigo. Pertinent negatives include no abdominal pain, anorexia, arthralgias, change in bowel habit, chest pain, headaches or neck pain. Pt recently had a fall with head injury on apr 07 Review of Systems Constitutional: Negative. Eyes: Positive for blurred vision and visual disturbance. Respiratory: Negative. Negative for shortness of breath. Cardiovascular: Negative for chest pain and palpitations. Gastrointestinal: Negative. Negative for abdominal pain, anorexia and change in bowel habit. Genitourinary: Negative. Musculoskeletal: Negative for arthralgias and neck pain. Neurological: Positive for vertigo. Negative for headaches. Objective Physical Exam Constitutional: Appearance: Normal appearance. Cardiovascular: Rate and Rhythm: Normal rate and regular rhythm. Pulmonary: Effort: Pulmonary effort is normal. Neurological: Mental Status: She is alert. Assessment/Plan Diagnoses and all orders for this visit: Blurred vision Injury of head, initial encounter Comments: Pt is sent to ER for further eval Acute bilateral low back pain without sciatica Comments: Started On Flexeril and Ibuprofen Advised Warm compress and Stretching Other orders - cyclobenzaprine (Flexeril) 10 MG tablet; Take 1 tablet (10 mg) by mouth 3 times daily for 10 days. - ibuprofen 800 MG tablet; Take 1 tablet (800 mg) by mouth 3 times daily. documented in this encounter Plan of Treatment Not on file documented as of this encounter Visit Diagnoses Diagnosis Blurred vision- Primary Other specified visual disturbances Injury of head, initial encounter Acute bilateral low back pain without sciatica documented in this encounter Additional Health Concerns Assessment Noted Time PHQ-9 Depression Total Score: 0 11/23/19 2:13 PM EDT documented as of this encounter Care Teams Candy Mixer Relationship Specialty Start Date End Date Name, MD Ghassan [address] [place] [address] PCP - General Internal Medicine 11/21/23 documented as of this encounter
[2024-05-05 08:36] LABS: Hepatitis A Antibody IgG Nonreactive (Nonreactive); ~Hepatitis A Antibody IgG 0.42 S/CO (0.00-0.99)
[2024-05-05 09:25] LABS: HBS Num1 > 1000.00 mIU/mL (0-7.99); HBsAGNum1 0.36 S/CO (0.00-0.99); Hepatitis B Surface Antigen Negative (Negative); ~Hepatitis B Surface Antibody REACTIVE (Nonreactive)
[2024-05-05 12:07] LABS: HCV Log PCR <1.18 NOT DETECTED Log IU/mL (NOT DETECTED); HepC Viral Load <15 NOT DETECTED IU/mL (NOT DETECTED)
== END 2024-05-02 11:51 | disposition home or self-care (01) ==
LOC: HO.HHCL 11:50
PROVIDERS: Visit Provider Internal Medicine Geriatric Medicine
DX: R74.01 Elevation of levels of liver transaminase levels (principal)
CPT/HCPCS: 36415; 86706; 86708; 87340; 87522

== ENCOUNTER 2024-06-16 09:39 | Outpatient (REF) | payer OTHER, SELFPAY ==
--- OUTSIDE RECORDS SUMMARY | 2024-06-16 10:48 | XMS_ITS | Encounter Summary ---
Author Organization [employer] Address [address] [place] [address] [address] [place] [address] Care Team Providers Care Silo Operator Name Role Phone Cha Medina MD Primary Care Pro vider Ghassan Dennis MD Primary Care Provider [phone] Reason for Visit * Reason Onset Date Comments Referral 11/27/2022 Encounter Details Date Type Department Care Team (Late st Contact Info) Description 11/27/2022 Telephone [facility] [address] [place], [place] [phone] Cha Medina MD [address] [place], [place] [phone] Referral Social History Tobacco Use Types Packs/Day [...] she came in 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 [employer] didn't see any notes in regards. documented in this encounter Plan of Treatment Not on file documented as of this encounter Visit Diagnoses Not on filedocumented in this encounter Additional Health Concerns Assessment Noted Time PHQ-9 Depression Total Score: 0 06/15/19 23 3:40 PM EDT documented as of this encounter Care Teams Silo Operator Relationship Specialty Start Date End Date Cha Medina MD [address] [place] [address] PCP - General Internal Medicine 11/23/22 11/20/23 Name, MD Ghassan [address] [place] [id number] PCP - General Internal Medicine 11/21/23 documented as of this encounter
--- OUTSIDE RECORDS SUMMARY | 2024-06-16 10:48 | XMS_ITS | Clinical Summary ---
Author Organization [employer] Address [address] [place] [address] Care Team Providers Care Bread And Pastry Baker Name Role Phone Name, Ghassan MCDONALD Primary Care Provider [phone] Allergies Active Allergy Reactions Criticality Noted Date [...] Active Problems Problem Noted Date Diagnosed Date Fatty liver 05/08/2024 Anxiety 03/17/2024 Urinary incontinence 03/17/2024 Overview (03/17/2024): [...] affective disorder 10/01/2013 Overview (03/17/2024): Admitted to [facility] February 2012 for SI/HI Admitted to [facility] February 2012 for SI/HI Assessment & Plan (06/14/2022 4:10 PM EDT): Patient was in a great mood today, she requested a tire finisher to help her with her bipolar disorder. [facility] sent tire finisher over to speak with Li during our appointment just to get the ball rolling. 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 Encounters Date Type Department Care Team Description 05/29/[address] [address] Sudha Lawson MA august recalls 05/08/[address] [address] Ghassan Dennis MD 05/08/2024 Orders Only [address] [address] Ghassan Dennis MD Fatty liver (Primary Dx) 05/02/2024 11:00 AM EST Office Visit [address] [address] Ghassan Dennis MD Sinus pressure (Primary Dx); Transaminitis 05/02/2024 Travel 04/29/2024 Telephone [facility] [address] [place] [address] Ghassan Dennis MD chartprep 04/15/2024 3:20 PM EST Office Visit [facility] [address] [address] Crystal Beard MD Blurred vision (Primary Dx); Injury of head, initial encounter; Acute bilateral low back pain without sciatica 04/15/2024 Telephone [facility] [address] [address] Crystal Beard MD Call To Expect ([facility]) 04/07/2024 Orders Only [facility] External Provider, [facility] 03/28/2024 11:45 AM EST Immunization [address] [address] Rossi Payne LPN Encounter for immunization (Primary Dx) 03/28/[address] [address] Ghassan Dennis MD Lab Orders (Patient needs tb test for work ) 03/28/2024 Travel from Last 3 Months Immunizations Name Administration [...] Sigmoidoscopy 1970 Alcohol/Substance Use Screening 1982 Hepatitis A Vaccines (1 of 2 - Risk 2-dose series) 1989 Pap Smear 1991 Zoster Vaccines (1 of 2) 2020 Pneumococcal Vaccine: 50+ Years (3 of 3 - PCV20 or PCV21) 08/02/2020 08/03/2015, 11/02/2010, 11/02/2010 SDOH Screening 06/15/2023 06/14/2022 Cervical Cancer Screening 01/11/2024 HPV/Cotest 01/11/2024 01/10/2019 Depression Screening 11/22/2024 11/23/2023, 11/23/19 Tobacco Screening 05/02/2025 05/02/2024 Mammogram 12/11/2025 12/12/2023, 08/03, 08/14/2022, Additional history [...] exists COVID-19 Vaccine Completed 03/28/2024, , 03/12/2020 Hepatitis C Screening Completed 05/02/2024 HIB Vaccines Aged Out No longer eligi [...] Procedure Name Priority Date/Time Associated Diagnosis Comments HEPATITIS A ANTIBODY, TOTAL Routine 05/02/2024 11:51 AM EST Transaminitis HEPATITIS B SURFACE ANTIBODY, QUALITATIVE Routine 05/02/2024 11:51 AM EST Transaminitis HEPATITIS B SURFACE ANTIGEN, EIA Routine 05/02/2024 11:51 AM EST Transaminitis HEPATITIS C VIRAL RNA, QUANTITATIVE, REAL-TIME PCR Routine 05/02/2024 11:[address] CERVICAL SPINE WO CONTRAST Routine 04/15/2024 [...] Recently Relevant to Health Maintenance Results * Hepatitis C Viral RNA, Quantitative, Real-Time PCR (05/02/2024 11:51 AM EST) Pathologist [facility] Hepatitis C Viral Load <15 NOT DETECTED NOT DETECTED IU/mL [facility] HCV Log PCR <1.18 NOT DETECTED NOT DETECTED Log IU/mL [facility] Comment:For additional infor jose, please refer tohttp://education.[employer]/faq/AYY12e8(This link is being provided for informational/educational purposes only.)THIS TEST WAS PERFORMED AT:[facility] [place] [phone] DELGADO MD Blood Venous blood specimen / Unknown 05/02/2024 11:51 AM EST 05/02/2024 1:24 PM EST us Ghassan Dennis MD LAB BLOOD ORDERABLES Final Resul t Performing Organization Address [facility] Phone Number [facility] [address] [place] [phone] * Hepatitis A Antibody, Total (05/02/2024 11:51 AM EST) Hepatitis A Antibody IgG Nonreactive Nonreactive [facility] Blood Venous blood specimen / Unknown 05/02/2024 11:51 AM EST 05/02/2024 1:24 PM EST us Ghassan Dennis MD LAB BLOOD ORDERABLES Final Resul t Performing Organization Address [facility] Co de Phone Number [facility] [address] [place] [phone] * Hepatitis B surface antigen, EIA (05/02/2024 11:51 AM EST) Hepatitis B Surface Ag Negative Negative [facility] Blood Venous blood specimen / Unknown 05/02/2024 11:51 AM EST 05/02/2024 1:24 PM EST us Ghassan Dennis MD LAB BLOOD ORDERABLES Final Resul t Performing Organization Address [facility] Co de Phone Number [facility] [address] [place] [phone] * Hepatitis B Surface Antibody, Qualitative (05/02/2024 11:51 AM EST) ~Hepatitis B Surface Antibody REACTIVE Nonreactive [facility] Comment:REACTIVE: > 11.99 mI U/mL Blood Venous blood specimen / Unknown 05/02/2024 11:51 AM EST 05/02/2024 1:24 PM EST us Ghassan Name LAB BLOOD ORDERABLES Final Resul t [facility] [address] [place] [phone] [phone] * CT Cervical Spine w/o Contrast (04/15/2024 8:21 PM EST) Only the most recent of2 resultswithin the time period is included. Anatomical Region Laterality Modality Spine, C-spine Computed Tomogra phy 04/15/2024 8:21 PM EST Narrative 04/15/2024 8:23 PM EST ? [facility] ?[address] ?[place] [address] ? CT Scan Report ? Signed ? Patient: Li Woo ?MR#: [id number] ?? 4 ? : 1970 ?Acct:[id number] ? Age/Sex: 54 / F ?ADM Date: 04/15/24 ? Loc: HO.ED ? Attending Dr: ? Ordering Physician: David Santiago ?? Date of Service: 04/15/24 ?? Procedure(s): CT cervical spine wo IV con ?? Accession Number(s): [id number] ? cc: David Santiago; Ghassan Dennis MD ? Report Number: ?? [id number]: Total DLP = ??540.88 mGy-cm ? CLINICAL [...] ? DD/ 20 ? TD/TT: 04/15/242020 ? Senior Ios Developer: ? Procedure Note Donabater, Image - 04/15/[address] [address] [address] Scan Report Signed Patient: Li WooMR#: [id number] 4 : 1970Acct:[id number] Age/Sex: 54 / FADM Date: 04/15/24 Loc: HO.ED Attending Dr: Ordering Physician: David Santiago Date of Service: 04/15/24 Procedure(s): CT cervical spine wo IV con Accession Number(s): [id number] cc: David Santiago; Name,Ghassan MCDONALD Report Number: [id number]: Total DLP = 540.88 mGy-cm CLINICAL HISTORY: [...] in OV> 04/15/242021 DD/ 20 TD/TT: 04/15/242020 Senior Ios Developer: [facility] External Provider IMG CT PROCEDURES Final Result * CT Head w/o Contrast (04/15/2024 8:21 PM EST) Only the most recent of2 resultswithin the time period is included. Anatomical Region Laterality Modality Head, Neck Computed Tomogra phy 04/15/2024 8:21 PM EST Narrative 04/15/2024 8:23 PM EST ? [facility] ?[address] ?[place] [address] ? CT Scan Report ? Signed ? Patient: Woo,Li ?MR#: [id number] ?? 4 ? : 1970 ?Acct:[id number] ? Age/Sex: 54 / F ?ADM Date: 04/15/24 ? Loc: HO.ED ? Attending Dr: ? Ordering Physician: David Santiago ?? Date of Service: 04/15/24 ?? Procedure(s): CT head/brain wo IV con ?? Accession Number(s): [id number] ? cc: David Santiago; Name,Ghassan MCDONALD ? Report Number: ?? [id number]: Total DLP = ??729.17 mGy-cm ? CLINICAL [...] on ?? 04/15/2024 20:21:01 ? Dictated By: ?Suchecki,Ez MD ? Signed By: ?<Electronically signed by Ez Johns MD in OV> ? 04/15/242021 ? DD/ 20 ? TD/TT: 04/15/242020 ? Senior Ios Developer: ? Procedure Note Chilo Griffin - 04/15/[address] [address] [address] Scan Report Signed Patient: Li Woo#: [id number] 4 : 1970Acct:[id number] Age/Sex: 54 / FADM Date: 04/15/24 Loc: HO.ED Attending Dr: Ordering Physician: David Santiago Date of Service: 04/15/24 Procedure(s): CT head/brain wo IV con Accession Number(s): [id number] cc: David Santiago; Name,Ghassan Report Number: [id number]: Total DLP = 729.17 mGy-cm CLINICAL HISTORY: [...] in OV> 04/15/242021 DD/ 20 TD/TT: 04/15/242020 Senior Ios Developer: [facility] External Provider IMG CT PROCEDURES Final Result * XR Shoulder 2+ Views Left (04/07/2024 1:05 PM EST) Anatomical Region Laterality Modality Upper Extremities, Shoulder Left Radi ographic Imaging 04/07/2024 1:05 PM EST Narrative 04/07/2024 1:25 PM EST ? [facility] ?[address] ?[place] [address] ?XRay Report ? Signed ? Patient: Woo,Li ?MR#: [id number] ?? 4 ? : 1970 ?Acct:[id number] ? Age/Sex: 53 / F ?ADM Date: 02/03/25 ? Loc: HO.ED ? Attending Dr: ? Ordering Physician: Radha Jensen ?? Date of Service: 04/07/24 ?? Procedure(s): XR shoulder LT min 2V ?? Accession Number(s): [id number] ? cc: Name,Ghassan MCDONALD; Radha Jensen ? [...] DD/ 1305 ? TD/TT: 04/07/24 1310 ? Senior Ios Developer: ? Procedure Note Chilo Griffin - 04/07/[address] [address] XRay Report Signed Patient: Cori Woo#: [id number] 4 : 1970Acct:[id number] Age/Sex: 53 / FADM Date: 04/07/24 Loc: HO.ED Attending Dr: Ordering Physician: Radha Jensen Date of Service: 04/07/24 Procedure(s): XR shoulder LT min 2V Accession Number(s): [id number] cc: Ghassan Dennis MD; Radha Jensen EXAMINATION: [...] 04/07/24 1322 DD/ 1305 TD/TT: 04/07/24 1310 Senior Ios Developer: [facility] External Provider IMG XR PROCEDURES Final Result * XR HAND WRIST LT (04/07/2024 12:44 PM EST) Anatomical Region Laterality Modality Abdomen Radiographic Roxanne ging 04/07/2024 12:4 4 PM EST Narrative 04/07/2024 1:24 PM EST ? [facility] ?[address] ?[place] [address] ?XRay Report ? Signed ? Patient: Woo,Li ?MR#: [id number] ?? 4 ? : 1970 ?Acct:[id number] ? Age/Sex: 53 / F ?ADM Date: 02/03/25 ? Loc: HO.ED ? Attending Dr: ? Ordering Physician: Radha Jensen ?? Date of Service: 04/07/24 ?? Procedure(s): XR hand wrist LT ?? Accession Number(s): [id number] ? cc: Name,Ghassan MCDONALD; Radha Jensen ? [...] DD/ 1244 ? TD/TT: 04/07/24 1300 ? Senior Ios Developer: ? Procedure Note Chilo Griffin - 04/07/[address] [address] XRay Report Signed Patient: Li WooMR#: [id number] 4 : 1970Acct:[id number] Age/Sex: 53 / FADM Date: 04/07/24 Loc: HO.ED Attending Dr: Ordering Physician: Radha Jensen Date of Service: 04/07/24 Procedure(s): XR hand wrist LT Accession Number(s): [id number] cc: Ghassan Dennis MD; Radha Jensen EXAMINATION: [...] Tre Morrow MD 04/07/2024 01:20 PM EST RP Dictated By: Tre Morrow MD Signed By: <Electronically signed by Tre Morrow MD in OV> 04/07/24 1320 DD/ 1244 TD/TT: 04/07/24 1300 Senior Ios Developer: [facility] External Provider IMG XR PROCEDURES Final Result * XR Knee 4+ Views Left (04/07/2024 12:44 PM EST) Anatomical Region Laterality Modality Lower Extremities, Knee Left Radiogra phic Imaging 04/07/2024 12:4 4 PM EST Narrative 04/07/2024 1:28 PM EST ? [facility] ?[address] ?[place] [address] ?XRay Report ? Signed ? Patient: Woo,Li ?MR#: [id number] ?? 4 ? : 1970 ?Acct:[id number] ? Age/Sex: 53 / F ?ADM Date: 04/07/24 ? Loc: HO.ED ? Attending Dr: ? Ordering Physician: Radha Jensen ?? Date of Service: 04/07/24 ?? Procedure(s): XR knee LT 4V ?? Accession Number(s): [id number] ? cc: Name,Ghassan MCDONALD; Radha Jensen ? [...] DD/ 1244 ? TD/TT: 04/07/24 1310 ? Senior Ios Developer: ? Procedure Note Donotuseinterpreter, Image - 04/07/[address] [address] XRay Report Signed Patient: Li WooMR#: [id number] 4 : 1970Acct:[id number] Age/Sex: 53 / FADM Date: 04/07/24 Loc: HO.ED Attending Dr: Ordering Physician: Radha Jensen Date of Service: 04/07/24 Procedure(s): XR knee LT 4V Accession Number(s): [id number] cc: Name,Ghassan MCDONALD; Radha Jensen EXAMINATION: XR KNEE, LEFT [...] effusion. 3. Arthritic changes. Electronically signed by: rTe Morrow MD 04/07/2024 01:26 PM EST Dictated By: Tre Morrow MD Signed By: <Electronically signed by Tre Morrow MD in OV> 04/07/24 1326 DD/ 1244 TD/TT: 04/07/24 1310 Senior Ios Developer: us [facility] External Provider IMG XR PROCEDURES Final Result * XR Lumbar Spine 2-3 Views (04/07/2024 12:42 PM EST) Anatomical Region Laterality Modality Spine, L-spine Radiographic Roxanne ging 04/07/2024 12:4 2 PM EST Narrative 04/07/2024 1:27 PM EST ? [facility] ?[address] ?[place] [address] ?XRay Report ? Signed ? Patient: Woo,Li ?MR#: [id number] ?? 4 ? : 1970 ?Acct:[id number] ? Age/Sex: 53 / F ?ADM Date: 04/07/24 ? Loc: HO.ED ? Attending Dr: ? Ordering Physician: Radha Jensen ?? Date of Service: 04/07/24 ?? Procedure(s): XR lumbar spine 2-3V ?? Accession Number(s): [id number] ? cc: Ghassan Dennis MD; Radha Jensen [...] DD/ 1242 ? TD/TT: 04/07/24 1300 ? Senior Ios Developer: ? Procedure Note Chilo Griffin - 04/07/[address] [address] XRay Report Signed Patient: Li WooMR#: [id number] 4 : 1970Acct:[id number] Age/Sex: 53 / FADM Date: 04/07/24 Loc: HO.ED Attending Dr: Ordering Physician: Radha Jensen Date of Service: 04/07/24 Procedure(s): XR lumbar spine 2-3V Accession Number(s): [id number] cc: Name,Ghassan MCDONALD; Radha Jensen EXAMINATION: XR [...] 04/07/24 1324 DD/ 1242 TD/TT: 04/07/24 1300 Senior Ios Developer: [facility] External Provider IMG XR PROCEDURES Final Result * T-SPOT??.TB (03/28/2024 12:30 PM EST) [facility] T Spot TB Negative Negative [facility] Comment:A negative test resu lt does [...] as aquantitative test. TS PANEL A 0 [facility] TS PANEL B 0 [facility] Negative Control Passed [facility] Positive Control Passed [facility] Comment:For additional infor jose, please refer tohttp://education.[employer]/faq/PDW940(This link is being provided for informational/educational purposes only.)THIS TEST WAS PERFORMED AT:[employer] [id number] [place] [address]GXSLRINTULIO CORREA MD,PHD 03/28/2024 12:3 0 PM EST 03/28/2024 1:29 PM EST us Ghassan Dennis MD LAB BLOOD ORDERABLES Final Resul t [facility] [address] [place] [phone] * BI Mammogram Screening Tomosynthesis Bilateral (12/12/2023 11:17 AM EDT) Anatomical Region Laterality Modality Breast Bilateral Mammography 12/12/2023 11:1 7 AM EDT Narrative 12/24/2023 6:01 PM EDT ? [facility] ? [address] ?[place] [address] ? Mammography Report ? Signed ? Patient: Woo,Li ?MR#: [id number] ?? 4 ? : 1970 ?Acct:[id number] ? Age/Sex: 53 / F ?ADM Date: 10/09/24 ? Loc: HO.MAMMO ? Attending Dr: Ghassan Dennis MD ? Ordering Physician: Ghassan Dennis MD ?Results: 1Negative ? Date of Service: 12/12/23 ?Follow Up: 1 Year From Orig ?? inal Mammogram ? Procedure(s): MM tomosynthesis screening BI ?? Accession Number(s): [id number] ? cc: Sonny,Ghassan MCDONALD ? EXAMINATION: ?? MM SCREENING DIGITAL [...] DD/ 1117 ? TD/TT: 12/12/23 1135 ? Senior Ios Developer: ? Procedure Note Donabater, Image - 12/24/2023 [facility] [address] [place] [address] Mammography Report Signed Patient: Li WooMR#: [id number] 4 : 1970Acct:[id number] Age/Sex: 53 / FADM Date: 12/12/23 Loc: HO.MAMMO Attending Dr: Ghassan Dennis MD Ordering Physician: Ghassan Dennisesults: 1Negative Date of Service: 12/12/23Follow Up: 1 Year From Orig inal Mammogram Procedure(s): MM tomosynthesis screening BI Accession Number(s): [id number] cc: Ghassan Dennis MD EXAMINATION: MM SCREENING [...] 12/24/23 1758 DD/ 1117 TD/TT: 12/12/23 1135 Senior Ios Developer: us Ghassan Dennis MD IMG BI PROCEDURES Edited Result - Final * (ABNORMAL) Lipid Panel, Standard (11/27/2023 8:47 AM EDT) Triglycerides 163(H) <150 mg/dL [facility] Comment:Desirable Triglyceri de: less than 150 mg/dLBorderline High Triglyceride 150-199 mg/dLHigh Triglyceride: 200-499 mg/dLVery High Triglyceride: greater than or equal to 5OO mg/dL Cholesterol 184 <200 mg/dL [facility] Comment:Desirable Cholestero l: less than 200 mg/dLBorderline High Cholesterol: 200-239 mg/dLHigh Cholesterol: greater than 239 mg/dL LDL Cholesterol Calculated 113(H) <100 mg/dL [facility] Comment:Desirable LDL: less than 100 mg/dLNear Optimal/Above Optimal LDL: 110- 129 mg/dLBorderline High LDL: 130-159 mg/dLHigh LDL: 160-189 mg/dLVery High LDL: greater than or equal to 190 mg/dL HDL Cholesterol 39(L) >40 mg/dL [facility] Comment:Desirable HDL: great er than 40 mg/dL Note: This HDL assay may give artificially low results in patients with liver disease. Blood Venous blood specimen / Unknown 11/27/2023 8:47 AM EDT 11/27/2023 11:14 AM EDT us Ghassan Dennis MD LAB BLOOD ORDERABLES Final Resul t [facility] [address] [place] [phone] * HPV mRNA E6/E7 (01/10/2019 9:39 AM EST) HPV mRNA E6/E7 Not Detected NOT DETECTED [facility] Comment: This test was performed using the APTIMA(R) HPV Assay ([employer] This assay detects E6/E7 viral messenger RNA (mRNA) from 14 high-risk HPV types (16,18,31,33,35,39,45,51, 52,56,58,59,66,68). For additional information please refer to: http://education.[employer]/faq/ACV075o2 (This link is being provided for informational/ educational purposes only.) The analytical performance characteristics of this assay have been determined by [employer] [place], [place]. The modifications have not been cleared or approved by the FDA. This assay has been validated pursuant to the CLIA regulations and is used for clinical purposes. Test Performed by [facility], [facility], [address] [place] [address] Tulio Correa M.D., Ph.D., Director of Laboratories , CLIA [id number] Please note: ??Effective 11/15/2015, HPV testing will be performed using [employer]'s APTIMA test which targets mRNA. Detecting mRNA instead of DNA, as in older methods, offers significant improvements in specificity. 01/10/2019 9:39 AM EST us Chel Chaudhry MD HISTORICAL/NON ORDERABLE L ABS Final Result [facility] [address] from Last 3 Months or Most Recently Relevant to Health Maintenance Insurance [facility] COMP Care Teams Bread And Pastry Baker Relationship Specialty Start Date End Date Name, MD Ghassan [address] [place] [phone] PCP - General Internal Medicine 11/21/23
--- OUTSIDE RECORDS SUMMARY | 2024-06-16 10:48 | XMS_ITS | Encounter Summary ---
Author Organization [employer] Address [address] [facility] [place] [address] Care Team Providers Care Planning Feeder Name Role Phone Hai Moore Primary Care Provider Unavail able Cha Medina MD Primary Care Pro vider Name, Ghassan MCDONALD Primary Care Provider [phone] Reason for Visit * Reason Comments Med Refill Encounter Details Date Type Department Care Team (Late st Contact Info) Description 08/29/2022 Refill [facility] [address] [place] [address] Tulio Lebron FNP Intervertebral disc disorder of [...] documented as of this encounter Care Teams Planning Feeder Relationship Specialty Start Date End Date Hai Moore AGNP PCP - General Family Medicine 03/15/22 11/22/22 Cha Medina MD [address] [place] [address] PCP - General Internal Medicine 11/23/22 11/20/23 Ghassan Dennis MD [address] [place] [address] PCP - General Internal Medicine 11/21/23 documented as of this encounter
== END 2024-06-16 09:40 | disposition home or self-care (01) ==
LOC: HO.US 09:39
PROVIDERS: PCP Internal Medicine Geriatric Medicine; Visit Provider Internal Medicine Geriatric Medicine
DX: Z13.89 Encounter for screening for other disorder (principal)

== ENCOUNTER 2024-09-09 09:30 | Outpatient (REF) | payer OTHER, SELFPAY ==
--- NOTE | ~2024-09-09 | US_ITS ---
EXAMINATION: US ABDOMEN COMPLETE WITH LIVER ELASTOGRAPHY HISTORY: fatty liver, transaminitis TECHNIQUE: Real-time grayscale ultrasound imaging of the abdomen was performed and images were reviewed. COMPARISON: There are no prior studies available for comparison. FINDINGS: Liver: The right lobe of the liver measures 7.7 cm in size. The left lobe of the liver measures 16.2 cm in size. The liver demonstrates increased echotexture, consistent with steatosis. There is probable focal fatty sparing in the ana hepatis. No focal mass or intrahepatic biliary ductal dilatation is identified. There is normal hepatopedal flow in the portal vein. Ultrasound elastography of the liver was performed with 10 separate measurements of the liver parenchyma with the patient in the supine position. Measurements were obtained approximately 2 cm below Jacek's capsule and perpendicular to the capsule. The median shear wave velocity is 1.33 m/s. The interquartile range/median (IQR/median) is 0.14. Gallbladder and biliary tree: There is cholelithiasis. There is no wall thickening or pericholecystic fluid. There is no sonographic Bello sign. The common bile duct is normal in caliber measuring 4 mm. Kidneys: The right kidney measures 10.2 cm in length. The left kidney measures 10.6 cm in length. There is an 8 mm cyst at the lower pole of the right kidney. There is no hydronephrosis or calculi. The left kidney is unremarkable. Pancreas: The pancreatic head, neck, and body are unremarkable. The pancreatic tail is obscured by bowel gas. Spleen: The spleen is normal in size and contour, measuring 11.5 cm in length. Abdominal aorta and inferior vena cava: The visualized portions of the abdominal aorta and inferior vena cava are normal in caliber. There is no free fluid in the abdomen. US/US abdomen comp w elastography IMPRESSION: 1. Hepatic steatosis. 2. Cholelithiasis. The median shear wave velocity in the liver is 1.33 m/s, corresponding to a median liver stiffness of 5.33 kPa. The IQR/median value is 0.14. This is indicative of a quality data set. Findings are indicative of a low elastography value which rules out advanced chronic liver disease in asymptomatic patients. REFERENCE: Society of Radiologists in Ultrasound Liver Stiffness Thresholds (2020): LIVER STIFFNESS THRESHOLDS: *Shear wave velocity less than 1.3 m/s (Liver Stiffness equal or less than 5 kPa): High probability of being normal. *Shear wave velocity less than 1.7 m/s (Liver Stiffness less than 9 kPa): In the absence of other known clinical signs, rules out compensated advanced chronic liver disease. *Shear wave velocity between 1.7-2.1 m/s (Liver Stiffness 9-13 kPa): Suggestive of compensated advanced chronic liver disease but need further test for confirmation. *Shear wave velocity between 2.1-2.4 m/s (Liver Stiffness 13-17 kPa): Rules in compensated advanced chronic liver disease. *Shear wave velocity greater than 2.4 m/s (Liver Stiffness over 17 kPa): Suggestive of clinically significant portal hypertension. QUALITY OF DATA SET: *IQR/Median value equal or less than 0.15 implies a quality data set. *IQR/Median value over 0.15 implies a poor quality data set. SIGNIFICANT CHANGE FROM PRIOR EXAM: Significant change if liver stiffness measurement is 10% or greater from prior exam. OTHER CONSIDERATIONS: The stage of liver fibrosis may be overestimated in the setting of acute hepatitis, liver inflammation, elevated liver function tests, hepatic vascular congestion, obstructive cholestasis, non-fasting state, and infiltrative diseases such as amyloidosis and lymphoma. In some patients with NAFLD, the liver stiffness thresholds for compensated advanced chronic liver disease may be lower. In causes other than viral hepatitis and NAFLD, liver stiffness thresholds are not well established. Electronically signed by: Trip Joy MD 09/09/2024 10:36 AM EDT
--- OUTSIDE RECORDS SUMMARY | 2024-09-09 09:58 | XMS_ITS | Clinical Summary ---
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 30 tablet 5 Active fluticasone (Flonase) 50 MCG/ACT nasal spray [...] 4:02 PM EDT): She has appointment with [facility] derm 06/16/2022 OCD (obsessive compulsive disorder) 10/01/2013 Bipolar affective disorder 10/01/2013 Overview (03/17/2024): Admitted to [facility] February 2012 for SI/HI Admitted to [facility] February 2012 for SI/HI Assessment & Plan (06/14/2022 4:10 PM EDT): Patient was in a great mood today, she requested a king maker to help her with her bipolar disorder. [facility] sent king maker over to speak with Li during our appointment just to get the ball rolling. 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 Immunizations Immunization Administration Dates Next Due Hep B, Adolescent [...] the past 12 months, has t he [employer], oil or water company threatened to shut [...] 68 05/02/2024 11:04 AM EST Temperature 35.6 C (96 F) 05/02/2024 11:04 AM EST Respiratory Rate 21 05/02/2024 11:04 AM EST Oxygen Saturation 98% 05/02/2024 11:04 AM EST Inhaled Oxygen Concentration - - Weight 93.4 kg (206 lb) 05/02/2024 11:04 AM EST Height 160 cm (5' 3 ) 05/02/2024 11:04 AM EST Body Mass Index 36.49 05/02/2024 11:04 AM EST Plan of Treatment Upcoming Encounters Date Type Department Care Team (Late st Contact Info) Description 11/27/2024 1:30 PM EDT Office Visit [facility] OPTOMETRY [address] [place] [address] Jessica Toussaint, OD [address] [place] [address] Health Maintenance Due Date Last Done Comments CT Colonography 1970 Colonoscopy 1970 Colorectal Cancer Screening 1970 FIT DNA/Cologuard 1970 FIT 1970 FOBT 1970 HIV Screening 1970 Sigmoidoscopy 1970 Disability Screening 1970 Alcohol/Substance Use Screening 1982 Hepatitis A Vaccines (1 of 2 - Risk 2-dose series) 1989 Pap Smear 1991 Zoster Vaccines (1 of 2) 2020 Pneumococcal Vaccine: 50+ Years (3 of 3 - PCV20 or PCV21) 08/02/2020 08/03/2015, 11/02/2010, 11/02/2010 SDOH Screening 06/15/2023 06/14/2022 Cervical Cancer Screening 01/11/2024 HPV/Cotest 01/11/2024 01/10/2019 Influenza Vaccine (#1) 2024 , 04/30/2023, 01/05/2020, Additional history exists Depression Screening 11/22/2024 11/23/2023, 11/23/19 Tobacco Screening 05/02/2025 05/02/2024 Mammogram 12/11/2025 12/12/2023, 08/03, 08/14/2022, Additional history exists Lipid Panel 11/26/2028 11/27/2023, 06/16/2022 DTaP/Tdap/Td Vaccines (3 - Td or Tdap) 11/22/2033 11/23/2023, 10/14/2013, 05/03/2009, Additional history exists RSV Patients and Patients Aged 60 years or older (1 - 1-dose 75+ series) 2045 Hepatitis B Vaccines Completed 11/11/2009, 11/11/2009, 06/11/2009, Additional history exists COVID-19 Vaccine Completed 03/28/2024, , 03/12/2020 Hepatitis C Screening Completed 05/02/2024 HIB Vaccines Aged Out No longer eligi ble based on patient's age to complete this topic HPV Vaccines Aged Out No longer eligi ble based on patient's age to complete this topic IPV Vaccines Aged Out No longer eligi ble based on patient's age to complete this topic Meningococcal B Vaccine Aged Out No l onger eligible based on patient's age to complete [...] Name Priority Date/Time Associated Diagnosis Comments HEPATITIS C VIRAL RNA, QUANTITATIVE, REAL-TIME PCR Routine 05/02/2024 11:51 AM EST Transaminitis BI MAMMOGRAM SCREENING TOMOSYNTHESIS BILATERAL Routine 12/12/2023 11:17 AM EDT Screening mammogram for breast cancer LIPID PANEL, STANDARD Routine 11/27/2023 8:47 AM EDT Screening for cholesterol level ZZZ HISTORICAL HPV MRNA E6/E7 Routine 01/10/2019 9:39 AM EST from Last 3 Months or Most Recently Relevant to Health Maintenance Results * Hepatitis C Viral RNA, Quantitative, Real-Time PCR (05/02/2024 11:51 AM EST) Hepatitis C Viral Load <15 NOT DETECTED NOT DETECTED IU/mL [facility] HCV Log PCR <1.18 NOT DETECTED NOT DETECTED Log IU/mL [facility] Comment:For additional infor jose, please refer tohttp://education.B[employer]/faq/CCX21x9(This link is being provided for informational/educational purposes only.)THIS TEST WAS PERFORMED AT:[facility] [place] [phone] DELGADO MD Blood Venous blood specimen / Unknown 05/02/2024 11:51 AM EST 05/02/2024 1:24 PM EST us Ghassan Dennis MD LAB BLOOD ORDERABLES Final Resul t [facility] [address] [place] [phone] * BI Mammogram Screening Tomosynthesis Bilateral (12/12/2023 11:17 AM EDT) Anatomical Region Laterality Modality Breast Bilateral Mammography 12/12/2023 11:1 7 AM EDT Narrative 12/24/2023 6:01 PM EDT [facility] [address] [place] [address] Mammography Report Signed Patient: Li Woo MR#: [id number] 4 : 1970 Acct:[id number] Age/Sex: 53 / F ADM Date: 12/12/23 Loc: HO.MAMMO Attending Dr: Ghassan Dennis MD Ordering Physician: Ghassan Dennis MD Results: 1Negative Date of Service: 12/12/23 Follow Up: 1 Year From Orig inal Mammogram Procedure(s): MM tomosynthesis screening BI Accession Number(s): [id number] cc: Ghassan Dennis MD EXAMINATION: MM SCREENING [...] 12/24/23 1758 DD/ 1117 TD/TT: 12/12/23 1135 Service Administrator: Procedure Note Donotuseinterpreter, Image - 12/24/2023 [facility] [address] [place] [address] Mammography Report Signed Patient: Li WooMR#: [id number] 4 : 1970Acct:[id number] Age/Sex: 53 / FADM Date: 12/12/23 Loc: HO.MAMMO Attending Dr: Ghassan Dennis MD Ordering Physician: Ghassan Dennis MDResults: 1Negative Date of Service: 12/12/23Follow Up: 1 Year From Orig inal Mammogram Procedure(s): MM tomosynthesis screening BI Accession Number(s): [id number] cc: NameGhassan MD EXAMINATION: MM SCREENING DIGITAL BREAST TOMOSYNTHESIS, [...] 12/24/23 1758 DD/ 1117 TD/TT: 12/12/23 1135 Service Administrator: Ghassan Dennis MD IM BI PROCEDURES Edited Result - Final * (ABNORMAL) Lipid Panel, Standard (11/27/2023 8:47 AM EDT) Triglycerides 163(H) <150 mg/dL [facility] Comment:Desirable Triglyceri de: less than 150 mg/dLBorderline High Triglyceride 150-199 mg/dLHigh Triglyceride: 200-499 mg/dLVery High Triglyceride: greater than or equal to 5OO mg/dL Cholesterol 184 <200 mg/dL [facility] Comment:Desirable Cholestero l: less than 200 mg/dLBorderline High Cholesterol: 200-239 mg/dLHigh Cholesterol: greater than 239 mg/dL LDL Cholesterol Calculated 113(H) <100 mg/dL [facility] Comment:Desirable LDL: less than 100 mg/dLNear Optimal/Above Optimal LDL: 110- 129 mg/dLBorderline High LDL: 130-159 mg/dLHigh LDL: 160-189 mg/dLVery High LDL: greater than or equal to 190 mg/dL HDL Cholesterol 39(L) >40 mg/dL [facility] Comment:Desirable HDL: great er than 40 mg/dL Note: This HDL assay may give artificially low results in patients with liver disease. Blood Venous blood specimen / Unknown 11/27/2023 8:47 AM EDT 11/27/2023 11:14 AM EDT us Ghassan Name LAB BLOOD ORDERABLES Final Resul t [facility] [address] [place] [phone] * HPV mRNA E6/E7 (01/10/2019 9:39 AM EST) HPV mRNA E6/E7 Not Detected NOT DETECTED [facility] Comment: This test was performed using the APTIMA(R) HPV Assay ([employer] This assay detects E6/E7 viral messenger RNA (mRNA) from 14 high-risk HPV types (16,18,31,33,35,39,45,51, 52,56,58,59,66,68). For additional information please refer to: http://education.BiddingForGood/faq/JTD135b9 (This link is being provided for informational/ educational purposes only.) The analytical performance characteristics of this assay have been determined by [employer] [place], [place]. The modifications have not been cleared or approved by the FDA. This assay has been validated pursuant to the CLIA regulations and is used for clinical purposes. Test Performed by [facility], [employer], [address] [place] [address] Tulio Solomon M.D., Ph.D., Director of Laboratories , CLIA [id number] Please note: Effective 11/15/2015, HPV testing will be performed using [employer]'s APTIMA test which targets mRNA. Detecting mRNA instead of DNA, as in older methods, offers significant improvements in specificity. 01/10/2019 9:39 AM EST us Chel Chaudhry MD HISTORICAL/NON ORDERABLE L ABS Final Result [facility] Anywhere [address] from Last 3 Months or Most Recently Relevant to Health Maintenance Insurance [facility] [employer]ANCE [employer] Care Teams Racing Mechanic Relationship Specialty Start Date End Date Name, MD Ghassan [address] [place] [id number] PCP - General Internal Medicine 11/21/23
== END 2024-09-09 09:31 | disposition home or self-care (01) ==
LOC: HO.US 09:30
PROVIDERS: PCP Internal Medicine Geriatric Medicine; Visit Provider Internal Medicine Geriatric Medicine
DX: K76.0 Fatty (change of) liver, not elsewhere classified (principal)
CPT/HCPCS: 76700; 76981

== ENCOUNTER → 2024-09-09 09:33 | Outpatient (BNV) | payer OTHER, SELFPAY | PROVIDERS: PCP Internal Medicine Geriatric Medicine; Visit Provider Radiology Diagnostic Radiology | DX: K80.20 Calculus of gallbladder without cholecystitis without obstruction (principal); K76.0 Fatty (change of) liver, not elsewhere classified | CPT/HCPCS: 76700 ==